=== PATIENT | female | born 1975 | race Caucasian/White ===

== ENCOUNTER → 2017-11-05 12:21 | Outpatient (CLI) | payer BC, SELFPAY ==
--- NOTE | 2017-11-05 12:25 | HPBI_ITS ---
MAMMOGRAPHY - BILATERAL SCREENING REASON FOR EXAM: Female, 42 years old. Routine annual screening examination. PERTINENT HISTORY: Aunt with breast cancer. TECHNIQUE: Digital bilateral breast aster (3D mammographic acquisition) in the CC and MLO projections. 2-D mediolateral oblique (MLO) and craniocaudad (CC) views of both breasts were obtained. CAD: Full Field Digital Mammography with Computer Added Detection was performed. COMPARISON: Comparison is made with prior outside examination dated September 10, 2016. FINDINGS: Breast Composition: The breasts are heterogeneously dense, which may obscure small masses. There are no dominant masses or suspicious calcifications. No other significant abnormalities are identified. There has been no significant change since the prior study. HPBI/SCREENING MAMM (CAD), BILAT IMPRESSION: Stable bilateral screening mammogram. Yearly follow-up mammogram recommended. (A) ASSESSMENT CATEGORY: BIRADS Category 1: Negative. A letter regarding these results will be sent to the patient by the facility within 30 days. Approximately 10% of breast cancers are not detected by mammography. A normal mammogram should not delay biopsy of a clinically suspicious abnormality. [id number] Electronically Signed: Siva Mcfarlane MD at 13:39 EDT Tel [phone], Service support ,
== END ==
PROVIDERS: Family Provider Internal Medicine; PCP Internal Medicine; Visit Provider Internal Medicine
DX: Z12.31 Encounter for screening mammogram for malignant neoplasm of breast (principal)
CPT/HCPCS: 77063; 77067

== ENCOUNTER → 2018-09-07 12:09 | Outpatient (CLI) | payer BC, SELFPAY ==
--- NOTE | 2018-09-07 12:12 | RAD_ITS ---
STUDY: X-RAY CHEST REASON FOR EXAM: Female, 43 years old. Night sweats TECHNIQUE: Frontal and lateral views of the chest were obtained. COMPARISON: None. FINDINGS: Lines and tubes: None. Lungs: Adequately aerated. No focal airspace opacities. Pleura: No demonstrated abnormality. Mediastinum/andressa: Unremarkable. Cardiovascular: Normal size cardiac silhouette. Central vascularity unremarkable. Thoracic aorta unremarkable. Soft tissues: Unremarkable. Bones: Mild degenerative changes in spine. Upper abdomen: No demonstrated abnormality. RAD/Chest PA and Lateral IMPRESSION: No acute cardiopulmonary abnormalities. No radiographic evidence of active tuberculosis infection. No evidence of lymphadenopathy. Electronically Signed: Lynn Zuniga MD at 12:05 EST , Service support ,
--- OUTSIDE RECORDS SUMMARY | 2018-11-09 10:11 | XMS RPT_ITS ---
:1975 Author Organization [facility] Care Team Providers Name Role Phone Ana Lilia Almaraz Attending Unavailable SungAna Lilia Referring Unavailable Sung, Ana Lilia Primary Care Unavailable SungAna Lilia Attending Unavailable SungAna Lilia Referring Unavailable Sung, Ana Lilia Primary Care Unavailable Sung DOAna Lilia Attending Unavailable Fast DO, Valentina A Referring Unavailable Sung DOAna Lilia Consulting Unavailable Fast, Michelle A. Referring Unavailable Fast, Michelle A. Primary Care Unavailable PROBLEMS PROBLEMS DATE TYPE CONDITION / CODE ATTENDING STATUS SOURCE 11/05/2017 Unknown Z12.31 - Ana Lilia Almaraz Active [facility] Encounter for [facility] screening Hospital mammogram for Repository malignant neoplasm of breast / Z12.31(ICD-10) PROCEDURES PROCEDURES No Procedure Records FoundRESULTS RESULTS CHEST PA AND LATERAL Observed: 09/07/2018 Status: F Source: [place] 12:12 PM [facility] HOSPITAL REPOSITORY [facility] Imaging Services [address] [place] [address] Chest PA and Lateral MR#: [id number] Acct: [id number] Name: LAKESHA THOMSON Rep #: [id number] : 1975 F 43 From: Lynn Zuniga MD PCP: Ana Lilia Almaraz DO Status: REG CLI Study: Chest PA and Lateral Date of Exam: 09/07/18 Exam# [id number] Ordering Dr: Ana Lilia Almaraz DO STUDY: X-RAY CHEST REASON FOR EXAM: Female, 43 years old. Night sweats TECHNIQUE: Frontal and lateral views of the chest were obtained. COMPARISON: None. FINDINGS: Lines and tubes: None. Lungs: Adequately aerated. No focal airspace opacities. Pleura: No demonstrated abnormality. Mediastinum/andressa: Unremarkable. Cardiovascular: Normal size cardiac silhouette. Central vascularity unremarkable. Thoracic aorta unremarkable. Soft tissues: Unremarkable. Bones: Mild degenerative changes in spine. Upper abdomen: No demonstrated abnormality. RAD/Chest PA and Lateral IMPRESSION: No acute cardiopulmonary abnormalities. No radiographic evidence of active tuberculosis infection. No evidence of lymphadenopathy. 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 Routine annual screening examination. PERTINENT HISTORY: Aunt with breast cancer. TECHNIQUE: Digital bilateral breast aster (3D mammographic acquisition) in the CC and MLO projections. 2-D mediolateral oblique (MLO) and craniocaudad (CC) views of both breasts were obtained. CAD: Full Field Digital Mammography with Computer Added Detection was performed. COMPARISON: Comparison is made with prior outside examination dated September 10, 2016. FINDINGS: Breast Composition: The breasts are heterogeneously dense, which may obscure small masses. There are no dominant masses or suspicious calcifications. No other significant abnormalities are identified. There has been no significant change since the prior study. HPBI/SCREENING MAMM (CAD), BILAT IMPRESSION: Stable bilateral screening mammogram. Yearly follow-up mammogram recommended. (A) ASSESSMENT CATEGORY: BIRADS Category 1: Negative. A letter regarding these results will be sent to the patient by the facility within 30 days. Approximately 10% of breast cancers are not detected by mammography. A normal mammogram should not delay biopsy of a clinically suspicious abnormality. [id number] Electronically Signed: Siva Mcfarlane MD at 13:39 EDT Tel [phone], Service support , CC: Ana Lilia Almaraz DO Asphalt Heater Tender: Signed ALLERGIES ALLERGIES DATE TYPE / CODE NAME / CODE REACTION SEVERITY SOURCE 05/19/2016 Drug No Known Unknown [facility] Allergy/416 Allergies/H23514 Hospital 880730(SNOM 0388(RXNORM) Repository ED CT) /[id number] NO KNOWN [facility] 6(SNOMED ALLERGIES [facility]) Repository ENCOUNTERS ENCOUNTERS ADMIT/DISCHARGE ACCOUNT NUMBER ADMITTING ENCOUNTER LOCATION SOURCE CLASS 09/07/2018 [id number] Ambulatory [facility] ding:HPRAD Repository 09/07/2018 [id number] Ambulatory Building:[facility] [place] Practices Repository 11/05/2017 [id number] Ambulatory [facility] ding:BI Repository 10/18/2017 [id number] Ambulatory [facility] ENCOUNTER GUARANTOR PAYER SUBSCRIBER SOURCE 09/07/2018 LAKESHA Garza Primary Khoa A [facility] [id number] FIVE Insurance:ANTHEMPolic FetzerDOB: Community POINTS y [place]: [id number] [id number] Repository [address]Ytp: ([phone]) Date:7731-71-74[phone] () [id number] [place] [id number]: 09/07/2018 [facility]SELF [facility] Number: Effective Repository Date:2018-09-07 09/07/2018 Lakesha Garza Primary Khoa FetzerDOB: [place] Practices FetzerDOB: Insurance:[place] [id number] Repository [id number] [facility] Number[facility] [address] [place] [id number], [place] Date:5062-00-47[place] [address]Twf: [phone]: [phone]) Name:[facility] [phone] () [phone] [place] [address] ID ()Tel: [phone]: [phone] 09/07/2018 Secondary [facility]:[place] FetzerDOB: Repository /BSPolicy Number: [id number] [address] Date: - [place], [place] 5770-08-12Snji [phone]: [phone]) Name:[facility] [phone] () [id number], [place] [id number]: 09/07/2018 Tertiary Lakesha GOODWIN Practices Insurance:United FetzerDOB: Repository [facility] [id number] Number: [address] [id number] [place], [place] Date: - [address]Yrp: (132) 1631-07-89Infr [phone] () Name:[address] [address]JS: 11/05/2017 LAKESHA Garciaith Adolfo Russell [id number] FIVE Insurance:ANTHEMPolic FetzerDOB: Community POINTS y Number: [id number] [id number] Repository [address]Pxj: ([phone]) Date:8246-40-09HF [phone] () [id number], [place] [address]ZA: 11/05/2017 Secondary NOT GIVENUNK [facility] Insurance:SELF PAY [facility] Number: Effective Repository Date:2017-10-18 10/18/2017 LAKESHA Garza Primary KHOA FETZERDOB: [facility] FETZERDOB: Insurance:BLUE ACCESS [id number] [id number] OPolicy Number: Repository FIVE POINTS [id number] [place], [place] Date: [address]Voi: ()
--- OUTSIDE RECORDS SUMMARY | 2018-11-09 10:11 | XMS RPT_ITS | Continuity of Care Document ---
:1975 Author Organization [facility] Address [address] [facility] [address] [place] [address] Phone Care Team Providers Name Role Phone Ana Lilia Carlso DO Unavailable Dr. Dyllan Rosen Unavailable Dr. Gladys Villalobos MD Unavailable [facility], [facility] Unavailable Rosario Austin Unavailable Unavailable Maximo GRECO, Kaylah Unavailable Deann Willams LPN Unavailable Unavailable Unavailable Unavailable Problems Name Dates Details Abnormal liver diagnostic imaging (R93.2, 793.3) Comments: recheck one year Status: Active Abnormal TSH (R79.89, 790.6) Status: Active Anxiety (F41.9, 300.00) Status: Active BMI 26.0-26.9,adult (Z68.26, V85.22) Comments: Waist belly button measurement is 29,.5 Status: Active BMI 26.0-26.9,adult (Z68.26, V85.22) Status: Active BMI 27.0-27.9,adult (Z68.27, V85.23) Status: Active BMI 30.0-30.9,adult (Z68.30, V85.30) Status: Active Bronchitis (J40, 490) Status: Active Congestion of nasal sinus (R09.81, 478.19) Status: Active Cough (R05, 786.2) Status: Active Current nonsmoker (Z78.9, V49.89) Status: Active Cyst of ovary, unspecified laterality (N83.209, 620.2) Comments: see loan underwriter Status: Active Degenerative Disc Disease - Lumbar (722.52) Comments: stable Status: Active DEHYDRATION (Renamed from Body water dehydration) (E86.0, 276.51) Status: Active Deliveries (Parity) Comments: Term, 3 Status: Active Diarrhea (R19.7, 787.91) Comments: on and off, colitis per Suzi, was to take endocort x 12 weeks had cdiff 3-15. then had immunosuppressive drug 8-15 for psoriasis. Status: Active Elevated TSH (R79.89, 794.5) Status: Active Encounter for screening for lipid disorder (Z13.220, V77.91) Status: Active Encounter for screening mammogram for breast cancer (Renamed from Encounter for screening mammogram for malignant neoplasm of breast) (Z12.31, V76.12) Status: Active Endometrial polyp (N84.0, 621.0) Comments: see loan underwriter Status: Active Family history of ischemic heart disease (Z82.49, V17.3) Status: Active Fatigue (R53.83, 780.79) Status: Active Fatty liver (K76.0, 571.8) Status: Active History of Helicobacter infection (Z86.19, V12.09) Status: Active Kidney stone (N20.0, 592.0) Comments: small on left Status: Active Pregnancies () Comments: 3 Status: Active 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 to Dr. diana luis out. 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) Status: Active Unspecified Diagnosis Status: Active Unspecified Diagnosis Status: Active Unspecified Diagnosis Status: Active Urinary frequency (Renamed from Frequency) (R35.0, 788.41) Status: Active Uterine fibroid (D25.9, 218.9) Status: Active Vitamin D deficiency (E55.9, 268.9) Status: Active Medications Name Dates Details Chantix Starting Month Parish 0.5 MG X 11 & 1 MG X 42 Oral Tablet 1 Misc qd for 0 days Quantity: 53 {Tablet} Refills: 0 Ordered:15-Nov-2017 Sung ANDERSON BatshevaCaron ANDERSON Ana Lilia Start : 15-Nov-2017 Active Comments:as directed D3-1000, 1000UNIT (Oral Capsule) 1 (one) Capsule Capsule daily for 0 days Quantity: 30 {Capsule} Refills: 0 Ordered:17-Oct-2014 Lynn Henning Start : 27-Jul-2014 Active ProAir HFA 108 (90 Base) MCG/ACT Inhalation Aerosol Solution 2 (two) Aerosol Soln puffs qid prn for 0 days Quantity: 1 {Inhaler} Refills: 1 Ordered:06-Apr-2018 Maximo GRECO Valarie Laws Start : 06-Apr-2018 Active AMOXICILLIN, 500MG (Oral Tablet) 2 (two) Tablet bid for 10 days Quantity: 40 {Tablet} Refills: 0 Ordered:29-Jun-2012 Maximo GRECOValarie Start : 29-Jun-2012 End : 09-Jul-2012 Inactive BIAXIN XL, 500MG (Oral Tablet Extended Release 24 Hour) 2 (two) Tablet ER 24HR Daily for 14 days Quantity: 28 {Tablet_ER_24HR} Refills: 0 Ordered:24-Sep-2008 Valentina Underwood DO Start : 24-Sep-2008 End : 08-Oct-2008 Inactive BIOTIN, 10MG (Oral Tablet) 1 (one) Tablet daily for 30 days Quantity: 30 {Tablet} Refills: 0 Ordered:04-Oct-2015 Maximo GRECOValarie Start : 26-Jun-2015 End : 26-Jul-2015 Inactive Chantix Continuing Month Parish 1 MG Oral Tablet 1 (one) Tablet bid for 0 days Quantity: 60 {Tablet} Refills: 2 Ordered:06-Jan-2018 Linda Wilson LPN Start : 08-Oct-2017 End : 06-Jan-2018 Inactive CIPROFLOXACIN HCL, 500MG (Oral Tablet) 1 Tablet bid for 7 days Quantity: 14 {Tablet} Refills: 0 Ordered:22-Nov-2012 Valarie Marsh CNP Start : 22-Nov-2012 End : 29-Nov-2012 Inactive Comments:ended up giving handwritten rx when emr down CLARITHROMYCIN, 500MG (Oral Tablet) 1 Tablet bid for 10 days Quantity: 20 {Tablet} Refills: 0 Ordered:29-Jun-2012 Valarie Marsh CNP Start : 29-Jun-2012 End : 09-Jul-2012 Inactive CYMBALTA, 30MG (Oral Capsule Delayed Release Particles) [address] Part qd in am for 30 days Quantity: 30 {Capsule_DR_Part} Refills: 3 Ordered:07-Mar-2012 HALEY Fountain Start : 12-May-2011 End : 07-Mar-2012 Inactive DIFLUCAN, 150MG (Oral Tablet) 1 (one) Tablet Tablet qd for 0 days Quantity: 3 {Tablet} Refills: 0 Ordered:28-Feb-2015 HALEY Fountain Start : 19-Oct-2014 End : 28-Feb-2015 Inactive DOXYCYCLINE MONOHYDRATE, 100MG (Oral Tablet) 1 (one) Tablet bid for 10 days Quantity: 20 {QS} Refills: 0 Ordered:16-May-2015 Quynh Sen LPN Start : 16-May-2015 End : 26-May-2015 Inactive DULOXETINE HCL, 30MG (Oral Capsule Delayed Release Particles) 1 (one) Capsule DR Part qd for 0 days Quantity: 30 {Capsule} Refills: 3 Ordered:28-Feb-2015 HALEY Fountain Start : 05-Nov-2014 End : 28-Feb-2015 Inactive Ergocalciferol 28654 UNIT Oral Capsule 1 (one) Capsule twice weekly x 3 months for 0 days Quantity: 24 {Capsule} Refills: 0 Ordered:08-Oct-2017 Linda Wilson LPN Start : 23-Nov-2016 End : 08-Oct-2017 Inactive FISH OIL CONCENTRATE, 300MG (Oral Capsule) 1 (one) Capsule daily for 30 days Quantity: 30 {Capsule} Refills: 0 Ordered:04-Oct-2015 Valarie Marsh CNP Start : 26-Jun-2015 End : 26-Jul-2015 Inactive FLAGYL, 500MG (Oral Tablet) 1 (one) Tablet Tablet tid for 14 days Quantity: 42 {Tablet} Refills: 0 Ordered:26-Jun-2015 Nathaly Parks MD Start : 26-Jun-2015 End : 10-Jul-2015 Inactive FLEXERIL, 10MG (Oral Tablet) 1 Tablet tid prn for 0 days Quantity: 20 {Tablet} Refills: 0 Ordered:24-Jun-2012 Jerald YEAGER Alcira Start : 07-Mar-2012 End : 24-Jun-2012 Inactive GARLIC, 10MG (Oral Capsule) 1 (one) Capsule daily for 30 days Quantity: 30 {Capsule} Refills: 0 Ordered:04-Oct-2015 Valarie Marsh CNP Start : 26-Jun-2015 End : 26-Jul-2015 Inactive LANSOPRAZOLE, 30MG (Oral Capsule Delayed Release) [address] bid for 10 days Quantity: 20 {Capsule_DR} Refills: 0 Ordered:29-Jun-2012 Valarie Marsh CNP Start : 29-Jun-2012 End : 09-Jul-2012 Inactive MAGNESIUM GLUCONATE, 250MG (Oral Tablet) 2 (two) Tablet daily for 30 days Quantity: 60 {Tablet} Refills: 0 Ordered:20-Mar-2016 Kj Valentina Mata Start : 20-Dec-2015 End : 19-Jan-2016 Inactive NICODERM CQ, 14MG/24HR (Transdermal Patch 24 Hour) 1 Patch 24HR daily for 14 days Quantity: 14 Refills: 0 Ordered:07-Mar-2012 HALEY Fountain Start : 21-Aug-2011 End : 07-Mar-2012 Inactive NICODERM CQ, 21MG/24HR (Transdermal Patch 24 Hour) 1 Patch 24HR daily for 42 days Quantity: 42 {Patch_24HR} Refills: 0 Ordered:07-Mar-2012 Wilda Murcia RN Start : 21-Aug-2011 End : 02-Oct-2011 Inactive Comments:use step 1 x 6 weeks NICODERM CQ, 7MG/24HR (Transdermal Patch 24 Hour) 1 Patch 24HR daily for 0 days Quantity: 41 {Patch_24HR} Refills: 0 Ordered:07-Mar-2012 HALEY Fountain Start : 21-Aug-2011 End : 07-Mar-2012 Inactive Comments:use weeks 9-10 No current meds Inactive PREDNISONE, 10MG (Oral Tablet) 1 Tablet for 0 days Refills: 0 Ordered:02-Jun-2010 Lynn Henning Start : 24-Sep-2008 End : 02-Jun-2010 Inactive Comments:3 pills for 3 days 2 pills for 3 days and 1 pill for 3 days Probiotic Oral Capsule 1 (one) Capsule Capsule qd for 0 days Quantity: 30 {Capsule} Refills: 1 Ordered:08-Oct-2017 Linda Wilson LPN Start : 16-May-2015 End : 08-Oct-2017 Inactive PYRIDIUM, 100MG (Oral Tablet) 1 Tablet tid for 2 days Quantity: 6 {Tablet} Refills: 0 Ordered:22-Nov-2012 Maximo GRECO Valarie Laws Start : 22-Nov-2012 End : 24-Nov-2012 Inactive Synthroid 25 MCG Oral Tablet 1 (one) Tablet daily for 0 days Quantity: 30 {Tablet} Refills: 3 Ordered:08-Oct-2017 Ga Carlos DO, DO, Kathleen Start : 08-Oct-2017 End : 08-Oct-2017 Inactive VICODIN, 5-500MG (Oral Tablet) 1 Tablet q 6 hours for 0 days Quantity: 15 {Tablet} Refills: 0 Ordered:24-Jun-2012 Alcira Marques LPN Start : 08-Mar-2012 End : 24-Jun-2012 Inactive Comments:fifteen VITAMIN C, 500MG (Oral Tablet) 1 (one) Tablet daily for 30 days Quantity: 30 {Tablet} Refills: 0 Ordered:04-Oct-2015 Maximo GRECOVaalrie Start : 26-Jun-2015 End : 26-Jul-2015 Inactive Advocare Vitamin Packets daily End : 26-Jun-2015 Discontinued ALIGN, 4MG (Oral Capsule) 1 Capsule daily for 0 days Quantity: 30 {Capsule} Refills: 0 Ordered:20-Jul-2014 Alcira Marques LPN Start : 22-Nov-2012 End : 20-Jul-2014 Discontinued BIAXIN XL PAC, 500MG (Oral Tablet Extended Release 24 Hour) 2 (two) Tablet ER 24HR qd for 0 days Quantity: 14 {Tablet_ER_24HR} Refills: 0 Ordered:20-Jul-2014 Alcira Marques LPN Start : 27-Jun-2013 End : 20-Jul-2014 Discontinued BUPROPION HCL ER (XL), 150MG (Oral Tablet Extended Release 24 Hour) 1 (one) Tablet ER 24HR Tablet ER 24HR qd for 0 days Quantity: 30 {Tablet} Refills: 3 Ordered:26-Jun-2015 Deann Willams LPN Start : 20-Mar-2015 End : 26-Jun-2015 Discontinued DOXYCYCLINE HYCLATE, 100MG (Oral Capsule) 1 (one) Capsule bid for 0 days Quantity: 20 {Capsule} Refills: 0 Ordered:20-Mar-2015 Lynn Henning Start : 28-Feb-2015 End : 20-Mar-2015 Discontinued ENTOCORT EC, 3MG (Oral Capsule Extended Release 24 Hour) 3 caps daily (3 MG) End : 05-Nov-2014 Discontinued Mucinex 600 MG Oral Tablet Extended Release 12 Hour 1 (one) Tablet bid for 0 days Quantity: 30 {Tablet} Refills: 0 Ordered:05-Sep-2018 Gilberto Rizzo Start : 06-Apr-2018 End : 05-Sep-2018 Discontinued Zithromax Z-Parish 250 MG Oral Tablet 1 (one) Tablet tad for 0 days Quantity: 1 {Package} Refills: 0 Ordered:05-Sep-2018 Gilberto Rizzo Start : 06-Apr-2018 End : 05-Sep-2018 Discontinued Allergies and Adverse Reactions Name Dates Details No Known Drug Allergies (Allergy) Status: Active Past Medical History Name Dates Details Abdominal cramping in left lower quadrant (R10.32, 789.04) Status: Resolved as of 08-Oct-2017 Abdominal pain (R10.9, 789.00) Comments: rt ovary Status: Inactive as of 28-Feb-2015 Abdominal pain, acute, generalized (R10.84, 789.07) Status: Resolved as of 05-Nov-[address] of the abdomen (R93.5, 793.6) Status: Resolved as of 08-Oct-2017 Abnormal urine color (R39.89, 791.9) Status: Inactive as of 28-Feb-2015 Abnormal uterine bleeding (N93.9, 626.9) Status: Resolved as of 08-Oct-2017 ACUTE CYSTITIS (N30.00, 595.0) Status: Resolved as of 05-Nov-2014 Bronchitis, acute (J20.9, 466.0) Status: Inactive as of 28-Feb-2015 C. difficile colitis (A04.72, 008.45) Comments: improving Status: Inactive as of 28-Feb-2015 Colitis (K52.9, 558.9) Comments: needs to take Endocort Status: Inactive as of 28-Feb-2015 DIARRHEA (Renamed from D (diarrhea)) (R19.7, 787.91) Status: Resolved as of 05-Nov-2014 Dysuria (R30.0, 788.1) Status: Inactive as of 28-Feb-2015 Encounter for smoking cessation counseling (Z71.6, V65.42) Status: Inactive as of 28-Feb-2015 FATIGUE (R53.83, 780.79) Status: Inactive as of 28-Feb-2015 Flank pain (R10.9, 789.09) Status: Resolved as of 08-Oct-2017 Flatulence (R14.3, 787.3) Status: Inactive as of 28-Feb-2015 Hematuria (R31.9, 599.7) Status: Inactive as of 28-Feb-2015 Hematuria (R31.9, 599.70) Status: Inactive as of 28-Feb-2015 History of colitis (Z87.19, V12.79) Status: Inactive as of 28-Feb-2015 Pharyngitis, acute (J02.9, 462) Comments: probable strep? concerned with possible mono will not give PCN d/t that risk. Status: Resolved as of 02-Jun-2010 Pneumonia due to other specified bacteria (J15.8, 482.89) Status: Resolved as of 02-Jun-2010 screening Status: Inactive as of 16-Dec-2010 Screening for malignant neoplasm of colon (Z12.11, V76.51) Status: Inactive as of 28-Feb-2015 Sebaceous cyst (L72.3, 706.2) Comments: small yet but infected will start with atb if not resolve will come in next week to have drained. first time had. told side effects of meds sunbrun use doxy over PCN with cdiff. will take priobiotic and watch for cdiffleft axilla Status: Resolved as of 08-Oct-2017 SHORTNESS OF BREATH (R06.02, 786.05) Status: Resolved as of 05-Nov-2014 Tobacco abuse (Z72.0, 305.1) Status: Resolved as of 23-Dec-2015 Unspecified Diagnosis Status: Inactive as of 28-Feb-2015 Vaginal Discharge (Renamed from Discharge from the vagina) (N89.8, 623.5) Status: Resolved as of 05-Nov-2014 Procedures Procedure Dates Details Hysterectomy; Vaginal Completed Comments: ovaries remain; Dr Crowe May 25 2016 tubal ligation Completed Comments: removal of the polyp Date Value Details 05-Nov-2017 SCREENING MAMM (CAD), BILAT Result: Comments: See Note; NOTES: [facility] Imaging Services [address] [place] [address] SCREENING MAMM (CAD), BILAT MR#: [id number] Acct: [id number] Name: DIEGO THOMSON Rep # : [id number] : 1975 F 42 From: Siva Mcfarlane MD PCP: Ana Lilia Carlos DO Status: REG CLI Study: SCREENING MAMM (CAD), BILAT Date of Exam: 11/05/17 Exam# [id number] Ordering Dr: Tone Carlos DO MAMMOGRAPHY - BILATERAL SCREENING REASON FOR EXAM: Female, 42 years old. Routine annual screening examination. PERTINENT HISTORY: Aunt with breast cancer. TECHNIQUE: Digital bilateral breast aster (3D mammographic acquisition) in the CC and MLO projections. 2-D mediolateral oblique (MLO) and craniocaudad (CC) views of both breasts were obtained. CAD: Full Field Digital Mammography with Comp uter Added Detection was performed. COMPARISON: Comparison is made with prior outside examination dated September 10, 2016. FINDINGS: Breast Composition: The breasts are heterogeneously dense, which may obscure small masses. There are no dominant masses or suspicious calcifications. No other significant abnormalities are identified. There has been no significant c hange since the prior study. 0027 HPBI/SCREENING MAMM (CAD), BILAT IMPRESSION: Stable bilateral screening mammogram. Yearly follow-up mammogram recomm ended. (A) ASSESSMENT CATEGORY: BIRADS Category 1: Negative. A letter regarding these results will be sent to the patient by the facility within 30 days. Approxima tely 10% of breast cancers are not detected by mammography. A normal mammogram should not delay biopsy of a clinically suspicious abnormality. [id number] Electronically Signed: Siva Mcfarlane MD 2017 at 13:39 EDT Tel [phone], Service support , CC: Ana Lilia Carlos DO After School Program Teacher: Signed 27-May-2016 Operative Report Result: Comments: See Note; NOTES: [facility] Medical Records Department [address] [place] [address] Operative Report MR#: [id number] Acct: [id number] Name: DIEGO THOMSON Rep #: [id number] : 1975 40 From: Haider Crowe MD PCP: Ana Lilia Carlos DO Status: [facility] DATE OF SERVICE: 05/25/2016 DATE OF SERVICE: May 25, 2016. SURGEON: Haider Crowe M.D. WASTE WATER WORKER: JOVANNI Collins. ANESTHESIA: Diana Matos. TYPE OF ANESTHESIA: General endotracheal. PREOPERATIVE DIAGNOSES: Menorrhagia, dysmenorrhea and uterine fibroids. POSTOPERATIVE DIAGNOSES: Menorrhagia, d ysmenorrhea and uterine fibroids. PROCEDURES PERFORMED: A vaginal hysterectomy. FINDINGS: An 8 cm sized uterus with normal-appearing fallopian tubes and ovaries. INDICATIONS: This is a 40-year-old wh ite female, 3, para 3, status post tubal ligation who has had the above issues. We discussed treatment options and given that she has been unresponsive to having a dilation and curettage about 6 months ago, she desired that we proceed with the above options. The patient has been counseled regarding the risks and indications of this procedure including the possibility of bleeding, infection, an d injury to surrounding structures such as bowel and bladder and desired that we proceed. All questions were answered. DESCRIPTION OF PROCEDURE: The patient was taken to the operating room where after induction of general anesthesia, she was placed in dorsal lithotomy position and prepped and draped in usual sterile fashion. The bladder was drained of approximately 50 mL of clear yellow urine with a red rubber catheter. The anterior cervix was grasped with a tenaculum and anterior cervix circumscribed with cautery on a setting of 30 hamilton coagulation. Anterior vaginal mucosa and peritoneum was then easily entered without difficulty and posterior cervix was circumscribed with a knife and posterior peritoneum easily entered. Progressive bites were then taken down on either side of the uterine cervi x ligating each pedicle with 0 Vicryl suture and superior pedicles were ligated x2 with 0 Vicryl suture. Posterior vaginal cuff was then oversewn with running locked 0 Vicryl suture and pedicles were ex amined and noted to be hemostatic. Peritoneum was then closed in a pursestring fashion incorporating superior pedicles into this stitch, and the vaginal cuff was closed front to back with interrupted fi [id number] 0 Vicryl suture. Hemostasis was noted. Camilo catheter was inserted with clear yellow urine noted. The patient tolerated the procedure well and was taken to recovery room in satisfactory co ndition. Sponge, instrument and needle counts were all reported correct. Estimated blood loss for the case was less than 100 mL. Cefotan 2 g IV was given prior to beginning the operative procedure. The re were no apparent complications of the surgery. SPECIMENS TO PATHOLOGY: Uterus. Haider Crowe MD T: [facility] JOB: [id number] 05/27/16 1421 <Electronically signed by Haider Crowe MD> Date Haider Crowe MD Cosigner Signature (If Indicated): Date CC: Haider Crowe MD; Ana Lilia Cyr Dictated: 05/25/16819 Date Transcribed: 05/25/16819 After School Program Teacher: Signed 25-May-2016 12 Lead Electrocardiogram Result: Comments: See Note; NOTES: [facility] Cardiovascular Services [address] [facility] [place] [address] 12 Lead EKG 05/23/16711 MR#: [id number] Acct: [id number] Name: DIEGO THOMSON ep #: [id number] : 1975 40 From: Fortino Palomares MD Attending Dr: Haider Crowe MD Status: REG [facility] Ordering Dr: Haider Crowe MD Date: 05/23/16 Location: [facility] Sex: F C Admitted: Test Reason : PRE OP Blood Pressure : / mmHG Vent. Rate : 055 BPM Atrial Rate : 055 BPM P-R Int : 148 ms QRS Dur : 080 ms QT Int : 452 ms P-R-T Axes : 051 077 043 degrees QTc Int : 432 ms Sinus bradycardia Otherwise normal ECG Confirmed by FORTINO PALOMARES MD ([id number]), web editor PETR ASENCIO ([id number]) on 05/25/2016 1:15:41 PM Referred By: Terrence Garcia Confirmed By:FORTINO PALOMARES MD 05/25/16 1315 Date Fortino Palomares MD CC: Ana Lilia Carlos DO Date Dictated: 05/23/16711 Date Transcribed: 05/23/16711 After School Program Teacher: Signed 25-May-2016 Discharge Instruction Result: Comments: See Note; NOTES: [facility] Medical Records Department [address] [place] [address] Instructions for Home/Discharge Instructions 05/25/16 0731 MR#: [id number] Acct: [id number] Name: DIEGO THOMSON Rep #: [id number] : 1975 40 From: Haider Crowe MD PCP: Ana Lilia Carlos DO Status: REG SDC Discharge Diet: No Restrictions Discharge Activity: Return to Normal Activity, May Not Drive - while taking narcotic pain medications., May Shower May resume sexual activity in: 6-8 weeks Call your doctor if your incision/area has: Continuous Slow Oozing, Sudden Increas ed Bleeding, Increased Pain/ Swelling, Increased Redness, Foul Smelling Discharge Call your doctor if you observe: Fever of 101 or Higher, Inability to urinate, Inability to have a bowel movement, Using more than one pad per hour Allergies/Adverse Reactions: Allergies No Known Allergies Allergy (Verified 05/19/16 08:02) Medications to take at Discharge L.acidoph AND Paracasei,B.lactis [Probiotic] 1 each PO DAILY 07/30/15 Docusate Sodium [Colace] 100 mg PO BID PRN PRN #60 capsule 05/25/16 Oxycodone [Oxyir] 5 mg PO Q6H PRN PRN #20 tablet 05/25/16 The following prescriptions were given: Docusate Sodium [Colace] 100 mg PO BID PRN PRN #60 capsule PRN Reason: Constipation Oxycodone [Oxyir] 5 mg PO Q6H PRN PRN #20 tablet PRN Reason: Mod-Severe Pain (-05/25) 05/25/16 0731 <Electronica lly signed by Haider Crowe MD> Date Haider Crowe MD CC: Ana Lilia Carlos DO 12-Feb-2016 Cerv Spine 4 or 5 Views Result: Comments: See Note; NOTES: [facility] Imaging Services [address] [place] [id number] Verdana 4d Cerv Spine 4 or 5 Views MR#: [id number] Acct: [id number] Name: DIEGO REYEZ Rep #: [id number] : 1975 F 40 From: Ravindra Parekh MD PCP: Valentina Underwood DO Status: REG CLI Study: Cerv Spine 4 or 5 Views Date of Exam: 02/12/16 Exam# [id number] Ordering Dr: Pool Harrington DO STUDY: X-RAY - CERVICAL SPINE REASON FOR EXAM: Female, 40 years old. Neck pain and stiffness TECHNIQUE: Six view(s) of the cervical spine were obtained. COMPARISON: None FINDINGS: Normal anterior atlantoaxial articulation. Normal odontoid process. There is reversal of the normal cervical lordosis. Normal vertebral bodies and endplates. Normal disc space heights. Mild right and left C3-4 neural foraminal stenosis. The soft tissue structures are unremarkable. IMPRESSION: Cervical lordotic reve rsal. Mild bilateral C3-4 neural foraminal stenoses. If the patient's clinical findings warrant, a follow-up MRI CERVICAL spine would be recommended. Electronically Signed: Ravindra Parekh MD at 23:59 EDT , Service support [phone], RAD/Cerv Spine 4 or 5 Views IMPRESSION: Cervical lordotic reversal. Mild bilateral C3 -4 neural foraminal stenoses. If the patient's clinical findings warrant, a follow-up MRI CERVICAL spine would be recommended. Electronically Signed: Ravindra Parekh MD at 23:59 EDT , Service support [phone], CC: Valentina Underwood DO; Pool Dempsey After School Program Teacher: Signed 17-Dec-2015 Abdomen WITH IV Contrast Result: Comments: See Note; NOTES: [facility] Imaging Services [address] [place] [id number] Verdana 4d Abdomen WITH IV Contrast MR#: [id number] Acct: [id number] Name: DIEGO MANUEL Rep #: [id number] : 1975 F 40 From: Ravindra Parekh MD PCP: Valentina Underwood DO Status: REG CLI Study: Abdomen WITH IV Contrast Date of Exam: 12/17/15 Exam# [id number] Ordering Dr: Valentina Byrd DO STUDY: CT ABDOMEN WITH CONTRAST REASON FOR EXAM: Female, 40 years old. Flank pain abnormal liver ultrasound, history of kidney stones, cholecystectomy, tubal ligation and appendect candy. RADIATION DOSAGE (If Supplied By Facility): CTDIvol = ( 10.81 ) mGy, DLP = ( 701.18 ) mGycm TECHNIQUE: Transaxial images were obtained post I.V. administration of 100 ml of Isovue 300 contras t, and with oral contrast. Sagittal and coronal images were reconstructed. Individualized dose optimization techniques were used for this CT. COMPARISON: Nonenhanced CT scan of the abdomen and pelv is dated 12/17/15, 0742 hrs. FINDINGS: The visualized lung bases are unremarkable. The visualized portions of the heart are within normal limits. There are a fe w scattered low attenuation lesions, largest measuring 7 mm most likely representing cysts, but ultrasound confirmation could be performed. Status post cholecystectomy by history and examination. Norm al spleen. The pancreas appears normal in the pancreatic head is not enlarged, measuring 2.5 cm. Normal bilateral adrenal glands. Small nonobstructing calculus in the lower pole the right kidney a nd the previously identified small calculus the left kidney is not as well imaged. Normal left kidney. The stomach is partially filled with oral contrast with mural thickening, most likely due to g astric nondistention. Normal small intestine. Normal colon. Status post appendectomy. Normal abdominal aorta. Normal inferior vena cava. Normal retroperitoneum. Normal abdominal wall. Normal osseo us structures. IMPRESSION: Normal-appearing pancreatic head which is better demonstrated after intravenous contrast was employed. There are a few scattered pro bable small cysts within the liver and this could be confirmed with ultrasound, as clinically indicated. Nonobstructing right nephrolithiasis. Status post cholecystectomy and appendectomy. Electr onically Signed: Ravindra Parekh MD at 19:58 EDT , Service support [phone], CC: Valentina Underwood DO After School Program Teacher: Signed 17-Dec-2015 Abdomen/Pelvis without Cont Result: Comments: See Note; NOTES: [facility] Imaging Services [address] [place] [address] Verdana 4d Abdomen/Pelvis without Cont MR#: [id number] Acct: [id number] Name: DIEGO THOMSON Rep #: [id number] : 1975 F 40 From: Ravindra Parekh MD PCP: Valentina Underwood DO Status: REG CLI Study: Abdomen/Pelvis without Cont Date of Exam: 12/17/15 Exam# [id number] Ordering Dr: Valentina Underwood DO ADDENDUM by Ravindra Parekh MD on 12/17/15 at 1957 ADDENDUM Correction: Status post appendectomy. Electronically Signed: Ravindra Parekh MD at 19:58 EDT , Service support [phone], 12/17/151957 Date __ cc: Valentina Underwood DO * Signed STUDY: CT ABDOMEN AND PELVIS WITHOUT CONTRAST REASON FOR EXAM: Female, 40 years old. Flank pain, abnormal liver ultrasound. History kidney stones right flank jeffry n. Tubal ligation, cholecystectomy and appendectomy. RADIATION DOSAGE (If Supplied By Facility): CTDIvol = ( 10.81 ) mGy, DLP = ( 701.18 ) mGycm TECHNIQUE: Transaxial images were obtained from the dome of the diaphragm to the symphysis pubis with oral contrast, and without intravenous contrast. Sagittal and coronal images were reconstructed. Individualized dose optimization techniques were u sed for this CT. COMPARISON: CT abdomen and pelvis 10/17/14. FINDINGS: The visualized lung bases are unremarkable. The visualized portions of the heart are withi n normal limits. Redemonstration of a couple of 2-3 mm low density lesions in the right and left hepatic lobes, too small for CT assessment, but probably represent small cysts and appear unchanged. Ultrasound correlation could be performed as clinically indicated. There is non- visualization of the gallbladder, which may be secondary to either contraction or a prior cholecystectomy. Normal splee n. The pancreatic head is enlarged, measuring 3.5 cm in its anterior-posterior dimension. No specific intrinsic mass peripancreatic fat induration. Normal bilateral adrenal glands. There is a 1-2 mm nonobstructing calculus in the lower pole right kidney without obstructive uropathy. There is a 2 mm left lower pole nonobstructing renal calculus. Normal visualized stomach. Normal small intest ine. Normal colon. The appendix is visualized and appears normal. There are surgical clips seen along the right iliopsoas muscle. Normal abdominal aorta. Normal inferior vena cava. Normal retroperi toneum. Normal urinary bladder. Bulky appearing uterus and status post tubal ligations. Normal abdominal wall. Degenerative disk disease at L5-S1 IMPRESSION: Apparent pancreatic enlargement without evidence of intrinsic lesion or peripancreatic fat induration. As result, a FOLLOWUP CT SCAN THE PANCREAS, with INTRAVENOUS contrast, would be recommended. B ilateral nonobstructing nephrolithiasis. Right lower quadrant surgical clips. Appearance small hepatic cysts which have remained stable. Status post cholecystectomy. Electronically Signed: Suresh Parekh MD at 19:47 EDT , Service support [phone], CC: Valentina Underwood DO After School Program Teacher: Signed 17-Dec-2015 Abdomen/Pelvis without Cont Result: Comments: See Note; NOTES: [facility] Imaging Services [address] [place] [address] Verdana 4d Abdomen/Pelvis without Cont MR#: [id number] Acct: [id number] Name: DIEGO THOMSON Rep #: [id number] : 1975 F 40 From: Ravindra Parekh MD PCP: Valentina Underwood DO Status: REG CLI Study: Abdomen/Pelvis without Cont Date of Exam: 12/17/15 Exam# [id number] Ordering Dr: Valentina Underwood DO STUDY: CT ABDOMEN AND PELVIS WITHOUT CONTRAST REASON FOR EXAM: Female, 40 years old. Flank pain, abnormal liver ultrasound. History kidney stones right flank pain. Tubal ligat ion, cholecystectomy and appendectomy. RADIATION DOSAGE (If Supplied By Facility): CTDIvol = ( 10.81 ) mGy, DLP = ( 701.18 ) mGycm TECHNIQUE: Transaxial images were obtained from the dome of the d iaphragm to the symphysis pubis with oral contrast, and without intravenous contrast. Sagittal and coronal images were reconstructed. Individualized dose optimization techniques were used for this C T. COMPARISON: CT abdomen and pelvis 10/17/14. FINDINGS: The visualized lung bases are unremarkable. The visualized portions of the heart are within normal limit s. Redemonstration of a couple of 2-3 mm low density lesions in the right and left hepatic lobes, too small for CT assessment, but probably represent small cysts and appear unchanged. Ultrasound cor relation could be performed as clinically indicated. There is non-visualization of the gallbladder, which may be secondary to either contraction or a prior cholecystectomy. Normal spleen. The pancr eatic head is enlarged, measuring 3.5 cm in its anterior-posterior dimension. No specific intrinsic mass peripancreatic fat induration. Normal bilateral adrenal glands. There is a 1-2 mm nonobstruc ting calculus in the lower pole right kidney without obstructive uropathy. There is a 2 mm left lower pole nonobstructing renal calculus. Normal visualized stomach. Normal small intestine. Normal co richie. The appendix is visualized and appears normal. There are surgical clips seen along the right iliopsoas muscle. Normal abdominal aorta. Normal inferior vena cava. Normal retroperitoneum. Norm al urinary bladder. Bulky appearing uterus and status post tubal ligations. Normal abdominal wall. Degenerative disk disease at L5-S1 IMPRESSION: Apparent panc reatic enlargement without evidence of intrinsic lesion or peripancreatic fat induration. As result, a FOLLOWUP CT SCAN THE PANCREAS, with INTRAVENOUS contrast, would be recommended. Bilateral nonob structing nephrolithiasis. Right lower quadrant surgical clips. Appearance small hepatic cysts which have remained stable. Status post cholecystectomy. Electronically Signed: Shalom Mccall at 19:47 EDT , Service support [phone], CC: Valentina Underwood DO After School Program Teacher: Signed 05-Dec-2015 Abdomen Complete Result: Comments: See Note; NOTES: [facility] Imaging Services [address] [place] [address] Marydana 4d Abdomen Complete MR#: [id number] Acct: [id number] Name: SHARDA THOMSON Rep #: [id number] : 1975 F 40 From: Siva Mcfarlane MD PCP: Valentina Underwood DO Status: REG CLI Study: Abdomen Complete Date of Exam: 12/05/15 Exam# [id number] Ordering Dr: Valentina Underwood DO STUDY: X-RAY - ABDOMEN/PELVIS REASON FOR EXAM: Female, 40 years old. Flank pain. TECHNIQUE: Two AP supine views of the abdomen and pelvis. COMPARISON: None. __ FINDINGS: There is a moderate amount of colonic fecal material. The visualized liver, spleen and kidneys are grossly normal in size and morphology. There is evidence of prior tubal ligation. Surgical clips are seen in the right mid pelvis. Normal visualized osseous structures. IMPRESSION: Moderate amount of fecal material is seen in the colon. Cathy ctronically Signed: Siva Mcfarlane MD at 12:38 EDT Tel [phone], Service support [phone], STUDY: ABDOMINAL ULTRASOUND REASON FOR EXAM: Female, 40 years old . Flank pain. TECHNIQUE: Transabdominal ultrasound was performed with real-time and static paez scale imaging. TECHNICAL QUALITY: Adequate. COMPARISON: Comparison is made with prior study dated A ugust 2014. FINDINGS: Liver: The liver measures 13.9 cm. There is increased echogenicity consistent with fatty infiltration. The bile ducts are within candy l limits. There is hepatic color flow. The direction of portal flow is hepatopetal. There is no demonstrated mass lesion. Gallbladder: The patient is status post cholecystectomy. Common Bile Duct (C.B.D.): The common bile duct measures 2.6 mm. Pancreas: Normal size of the head, body and tail of the pancreas. There is normal echogenicity of the pancreas. There is no demonstrated pancreatic ma ss or cyst. Spleen: Normal size of the spleen. The spleen measures 9.1 cm x 3.4 cm x 5.0 cm. Right Kidney: Normal size of the right kidney. The right kidney measures 10.3 cm x 5.9 cm x 5.0 cm. Nor mal renal cortex. The right cortex measures 1.5 cm. There is no demonstrated renal mass or cyst. There is no right hydronephrosis. Left Kidney: Normal size of the left kidney. The left kidney measur es 10.7 cm x 4.9 cm x 6.2 cm. Normal renal cortex. The left cortex measures 1.5 cm. There is no demonstrated renal mass or cyst. There is no left hydronephrosis. Aorta: Unremarkable. I.V.C.: The IVC is patent. There is no ascites. IMPRESSION: Fatty infiltration of the liver. The patient is status post cholecystectomy. Electronically Signed: Siva Mcfarlane MD at 12:39 EDT Tel [phone], Service support [phone], CC: Valentina Underwood DO After School Program Teacher: Signed 05-Dec-2015 Abdomen Single View Result: Comments: See Note; NOTES: [facility] Imaging Services [address] [place] [address] Marydadiana 4d Abdomen Single View MR#: [id number] Acct: [id number] Name: DIEGO THOMSON Rep #: [id number] : 1975 F 40 From: Siva Mcfarlane MD PCP: Valentina Underwood DO Status: REG CLI Study: Abdomen Single View Date of Exam: 12/05/15 Exam# [id number] Ordering Dr: Meng DO STUDY: X-RAY - ABDOMEN/PELVIS REASON FOR EXAM: Female, 40 years old. Flank pain. TECHNIQUE: Two AP supine views of the abdomen and pelvis. COMPARISON: None. FINDINGS: There is a moderate amount of colonic fecal material. The visualized liver, spleen and kidneys are grossly normal in size and morphology. There is evidence of prior tubal lig ation. Surgical clips are seen in the right mid pelvis. Normal visualized osseous structures. IMPRESSION: Moderate amount of fecal material is seen in the colon. Electronically Signed: Siva Mcfarlane MD at 12:38 EDT Tel [phone], Service support [phone], STUDY: ABDOMINAL ULTRASOUND REASON FOR EXAM: Female, 40 yea rs old. Flank pain. TECHNIQUE: Transabdominal ultrasound was performed with real-time and static paez scale imaging. TECHNICAL QUALITY: Adequate. COMPARISON: Comparison is made with prior study d ated April 04, 2015. FINDINGS: Liver: The liver measures 13.9 cm. There is increased echogenicity consistent with fatty infiltration. The bile ducts are within normal limits. There is hepatic color flow. The direction of portal flow is hepatopetal. There is no demonstrated mass lesion. Gallbladder: The patient is status post cholecystectomy. Common Bile Duct (C.B.D.): The common bile duct measures 2.6 mm. Pancreas: Normal size of the head, body and tail of the pancreas. There is normal echogenicity of the pancreas. There is no demonstrated pancrea tic mass or cyst. Spleen: Normal size of the spleen. The spleen measures 9.1 cm x 3.4 cm x 5.0 cm. Right Kidney: Normal size of the right kidney. The right kidney measures 10.3 cm x 5.9 cm x 5.0 c m. Normal renal cortex. The right cortex measures 1.5 cm. There is no demonstrated renal mass or cyst. There is no right hydronephrosis. Left Kidney: Normal size of the left kidney. The left kidney measures 10.7 cm x 4.9 cm x 6.2 cm. Normal renal cortex. The left cortex measures 1.5 cm. There is no demonstrated renal mass or cyst. There is no left hydronephrosis. Aorta: Unremarkable. I.V.C. : The IVC is patent. There is no ascites. IMPRESSION: Fatty infiltration of the liver. The patient is status post cholecystectomy. Electronically Signed: Matthew Mcfarlane MD at 12:39 EDT Tel [phone], Service support [phone], RAD/Abdomen Single View IMPRESSION: Fatty infiltration of the liver . The patient is status post cholecystectomy. Electronically Signed: Siva Mcfarlane MD at 12:39 EDT Tel [phone], Service support [phone], CC: Valentina Underwood DO After School Program Teacher: Signed 05-Dec-2015 Abdomen Single View Result: Comments: See Note; NOTES: [facility] Imaging Services [address] [place] [address] Verdana 4d Abdomen Single View MR#: [id number] Acct: [id number] Name: DIEGO THOMSON Rep #: [id number] : 1975 F 40 From: Siva Mcfarlane MD PCP: Valentina Underwood DO Status: REG CLI Study: Abdomen Single View Date of Exam: 12/05/15 Exam# [id number] Ordering Dr: Meng DO STUDY: X-RAY - ABDOMEN/PELVIS REASON FOR EXAM: Female, 40 years old. Flank pain. TECHNIQUE: Two AP supine views of the abdomen and pelvis. COMPARISON: None. FINDINGS: There is a moderate amount of colonic fecal material. The visualized liver, spleen and kidneys are grossly normal in size and morphology. There is evidence of prior tubal lig ation. Surgical clips are seen in the right mid pelvis. Normal visualized osseous structures. IMPRESSION: Moderate amount of fecal material is seen in the colon. Electronically Signed: Siva Mcfarlane MD at 12:38 EDT Tel [phone], Service support [phone], STUDY: ABDOMINAL ULTRASOUND REASON FOR EXAM: Female, 40 yea rs old. Flank pain. TECHNIQUE: Transabdominal ultrasound was performed with real-time and static paez scale imaging. TECHNICAL QUALITY: Adequate. COMPARISON: Comparison is made with prior study d ated April 04, 2015. FINDINGS: Liver: The liver measures 13.9 cm. There is increased echogenicity consistent with fatty infiltration. The bile ducts are within normal limits. There is hepatic color flow. The direction of portal flow is hepatopetal. There is no demonstrated mass lesion. Gallbladder: The patient is status post cholecystectomy. Common Bile Duct (C.B.D.): The common bile duct measures 2.6 mm. Pancreas: Normal size of the head, body and tail of the pancreas. There is normal echogenicity of the pancreas. There is no demonstrated pancrea tic mass or cyst. Spleen: Normal size of the spleen. The spleen measures 9.1 cm x 3.4 cm x 5.0 cm. Right Kidney: Normal size of the right kidney. The right kidney measures 10.3 cm x 5.9 cm x 5.0 c m. Normal renal cortex. The right cortex measures 1.5 cm. There is no demonstrated renal mass or cyst. There is no right hydronephrosis. Left Kidney: Normal size of the left kidney. The left kidney measures 10.7 cm x 4.9 cm x 6.2 cm. Normal renal cortex. The left cortex measures 1.5 cm. There is no demonstrated renal mass or cyst. There is no left hydronephrosis. Aorta: Unremarkable. I.V.C. : The IVC is patent. There is no ascites. IMPRESSION: Fatty infiltration of the liver. The patient is status post cholecystectomy. Electronically Signed: Matthew Mcfarlane MD at 12:39 EDT Tel [phone], Service support [phone], RAD/Abdomen Single View IMPRESSION: Fatty infiltration of the liver . The patient is status post cholecystectomy. Electronically Signed: Siva Mcfarlane MD at 12:39 EDT Tel [phone], Service support [phone], CC: Valentina Underwood DO After School Program Teacher: Signed 07-Aug-2015 Operative Report Result: Comments: See Note; NOTES: [facility] Medical Records Department [address] [place] [address] Operative Report MR#: [id number] Acct: [id number] Name: MILVIA THOMSON Rep #: [id number] : 1975 39 From: Haider Crowe MD PCP: Valentina Underwood DO Status: [facility] DATE OF SERVICE: 08/05/2015 DATE OF SERVICE: August 05, 2015 SURGEON: Phoenix Engel NESTHESIA: Robert Ramey TYPE OF ANESTHESIA: General endotracheal. PREOPERATIVE DIAGNOSES: Endocervical polyp, ovarian cyst, uterine fibroids, irregular bleeding and desires permanent sterilizatio n. POSTOPERATIVE DIAGNOSES: Endocervical polyp, ovarian cyst, uterine fibroids, irregular bleeding and desires permanent sterilization. PROCEDURES: Laparoscopic bilateral tubal occlusion with Sebastian shie clips, bilateral partial salpingectomy, diagnostic hysteroscopy, fractional dilation and curettage, and Mirena IUD removal. FINDINGS: Mirena IUD in endometrial cavity with string visualized at cervix, normal endometrial cavity with a small endometrial polyp present and normal pelvis. INDICATIONS: This is a 39-year-old white female, 3, para 3, who presents for the above procedure due to having problems with irregular periods. She was noted to have an endocervical polyp on [employer] ultrasound about 3-4 months ago. She also had normal-appearing ovaries on ultrasound with a small cys t present on the right. Given this, it was decided to proceed with the above procedure. The patient was counseled regarding the risks and indications of this procedure including the possibility of ble eding, infection, and injury to surrounding structures such as bowel and bladder. She also understands the permanent nature of a tubal, the failure rate of 1%- 2% and the availability of other nonperma nent control options. All questions were answered. DESCRIPTION OF PROCEDURE: The patient was taken to the operating room where after induction of general anesthesia, she was placed in dorsal lithotomy position, prepped and draped in usual sterile fashion. The anterior lip of the cervix was grasped with a tenaculum and IUD was removed. James cannula was placed and attention was turned towar d the laparoscopic portion of the procedure. Approximately 10 mL of 0.5% ropivacaine was injected subumbilically and suprapubically. A 5-mm bladeless trocar was introduced subumbilically and after C O2 insufflation was completed, an 8-mm bladeless trocar was introduced suprapubically. It should be noted that approximately 75 mL of clear yellow urine was drained from the bladder with a red rubber catheter at the beginning of the procedure. It should also be noted that the patient had previous abdominal surgery for cosmetic reasons and the fascia was rather difficult to enter. However, under t he fascia, there was no evidence of adhesions in the peritoneal cavity. The above findings were noted and ENSEAL device was used to cauterize across the mesosalpinx on each fallopian tube, leaving elizabeth roximately 0.5 cm of each fallopian tube present. On which, Filshie clips were placed bilaterally. Attention was then turned toward the D and C portion of the procedure after desufflating the abdomen of CO2 gas. A 3 mm hysteroscope was placed in the uterus and the above findings were noted. After removing the hysteroscope, endocervical and then endometrial curettings were obtained. Attention wa s again turned toward the laparoscopic portion of the procedure. Laparoscopic ports were removed and port sites were closed with running 4-0 Monocryl suture. Steri-Strips placed across the incision. The patient tolerated the procedure well and was taken to recovery room in satisfactory condition. Sponge, instrument, needle counts were all reported correct. Estimated blood loss for the case was mi nimal. There were no apparent complications of the surgery. SPECIMENS TO PATHOLOGY: Bilateral fallopian tubes, endocervical, endometrial curettings. Haider Crowe MD T: NTS JOB: [id number] <Electronically signed by Haider Crowe MD> Date Haider Crowe MD Cosigner Signature (If Indicated): Date ____ CC: Valentina Underwood DO; Haider Crowe MD Date Dictated: 08/05/15833 Date Transcribed: 08/05/15833 After School Program Teacher: Signed 05-Aug-2015 Discharge Instruction Result: Comments: See Note; NOTES: [facility] Medical Records Department [address] [place] [address] Instructions for Home/Discharge Instructions 08/05/15 0725 MR#: [id number] Acct: [id number] Name: DIEGO THOMSON Rep #: [id number] : 1975 39 From: Haider Crowe MD PCP: Valentina Underwood DO Status: REG [facility] Discharge Diet: No Restrictions - Increase fluid intake f or the next 48 hours. Discharge Activity: Return to Normal Activity, May Drive - when you are no longer taking pain/ narcotic medicines., May Shower, May Take a Tub Bath Additional Activity Instructio ns:: Ambulate often the next week after surgery. Nothing in the vagina for 5 days. Call your doctor if your incision/area has: Continuous Slow Oozing, Sudden Increased Bleeding, Increased Pain/ Swell ing, Increased Redness, Foul Smelling Discharge Call your doctor if you observe: Fever of 101 or Higher, Inability to urinate, Inability to have a bowel movement Allergies/Adverse Reactions: Allergi es No Known Allergies Allergy (Verified 07/30/15 09:25) Medications to take at Discharge Ascorbic Acid [Vitamin C] 500 mg PO DAILY 07/30/15 Biotin [Doc Biotin] 10,000 mcg PO DAILY 07/30/15 Ch olecalciferol (VIT D3) [Vitamin D] 1,000 unit PO DAILY 07/30/15 Garlic 1 mg PO DAILY 07/30/15 L.acidoph AND Paracasei,B.lactis [Probiotic] 1 each PO DAILY 07/30/15 Vitamin B Complex 1 each PO DAILY 1 09/30/14 Hydrocodone Bitart/Apap 5-325 [Lynndyl 5MG-325MG] 1 - 2 tablet PO Q4H PRN PRN #20 tablet 08/05/15 The following prescriptions were given: Hydrocodone Bitart/Apap 5-325 [Lynndyl 5MG-325MG] 1 - 2 tablet PO Q4H PRN PRN #20 tablet PRN Reason: Moderate To Severe Pain Please Follow Up With: Haider Crowe - [phone] When: 2-3 weeks 08/05/15 0726 <Electronically signed by Haider echavarria MD> Date Haider Crowe MD CC: Valentina Underwood DO 12-Apr-2015 Transvaginal Non- Result: Comments: See Note; NOTES: [facility] Imaging Services [address] [place] [address] Ultrasound Report MR#: [id number] Acct: [id number] Name: DIEGO THOMSON Rep #: [id number] : 1975 F 39 From: Siva Mcfarlane MD PCP: Valentina Underwood DO Status: REG CLI Study: Transvaginal Non- Date of Exam: 04/12/15 Exam# [id number] Ordering Dr: Valentina Underwood DO ST UDY: ULTRASOUND OF THE FEMALE PELVIS - COMPLETE REASON FOR EXAM: Female, 39 years old. LMP: Right pelvic pain. TECHNIQUE: Transabdominal and Transvaginal TECHNICAL QUALITY: Adequate. COMPARISON: None. FINDINGS: The uterus is anteverted and is in a midline position. The uterus measures 9.5 cm x 5.4 cm x 4.2 cm. Normal uterine cervix. The endometrium karla ures 5.0 mm in thickness, and is hyperechoic. There is no demonstrated endometrial mass. There is a 1 cm x 1.1 cm x 0.9 cm fibroid. There is also evidence of a 6 mm x 6 mm x 3 mm polyp in the endocer vical canal. I.U.D. - The patient does have an I.U.D. The right ovary is visualized. The right ovary measures 3.7 cm x 4.8 cm 1.9 cm. There is a 2.1 cm x 2.0 cm x 1.5 cm cyst in the right ovary. Th ere is no visualized right adnexal mass or complex lesion. There is normal arterial and normal venous vascularity. The left ovary is visualized. The left ovary measures 3.3 cm x 2.4 cm 1.3 cm. There is no left ovarian cyst or ovarian mass. There is no visualized left adnexal mass or complex lesion. There is normal arterial and normal venous vascularity. There is no fluid in the cul-de-sac. _ IMPRESSION: Right ovarian cyst. Small fibroid in the body of the uterus as well as a possible small polyp in the endocervical canal. Electronically Signed: David Mcfarlane MD at 13:48 EDT Tel [phone], Service support [phone], CC: Valentina Underwood DO After School Program Teacher: Signed 12-Apr-2015 Liver Result: Comments: See Note; NOTES: [facility] Imaging Services [address] [place] [address] Ultrasound Report MR#: [id number] Acct: [id number] Name: DIEGO THOMSON Rep #: [id number] : 1975 F 39 From: Siva Mcfarlane MD PCP: Valentina Underwood DO Status: REG CLI Study: Liver Date of Exam: 04/12/15 Exam# [id number] Ordering Dr: Valentina Underwood DO STUDY: ABDOMINAL ULTRA SOUND - RIGHT UPPER QUADRANT REASON FOR VISIT: Female, 39 years old. History of colitis. TECHNIQUE: Ultrasound evaluation of the right upper quadrant was performed with real-time and static paez-sc neftaly imaging. TECHNICAL QUALITY: Adequate. COMPARISON: Comparison is made with prior examination dated July 23, 2014. FINDINGS: Liver: The liver measures 13.4 cm. There is normal echogenicity of the liver. The bile ducts are within normal limits. There is hepatic color flow. The direction of portal flow is hepatopetal. There is no demonstrated mass le alonso. The tiny hypodensities seen on the CT scan of the abdomen are not visualized on this examination. Gallbladder: The patient is status post cholecystectomy. Common Bile Duct (C.B.D.): The commo n bile duct measures 5.0 mm. Pancreas: Normal size of the head, body and tail of the pancreas. There is normal echogenicity of the pancreas. There is no demonstrated pancreatic mass or cyst. Right Kidney: Normal size of the right kidney. The right kidney measures 10.9 cm x 6.0 cm x 5.0 cm. Normal renal cortex. The right cortex measures 1.3 cm. There is no demonstrated renal mass or cyst. There is an extra-renal pelvis of the right kidney. There is no distention of the renal calyces. IMPRESSION: Status post cholecystectomy. No acute abnormality is see n. Electronically Signed: Siva Mcfarlane MD at 13:13 EDT Tel [phone], Service support [phone], CC: Valentina Underwood DO [employer] Program Teacher: Signed 12-Apr-2015 Pelvic (Non ) Result: Comments: See Note; NOTES: [facility] Imaging Services [address] [place] [address] [place] [address] Ultrasound Report MR#: [id number] Acct: [id number] Name: DIEGO THOMSON Rep #: [id number] : 1975 F 39 From: Siva Mcfarlane MD PCP: Valentina Underwood DO Status: REG CLI Study: Pelvic (Non ) Date of Exam: 04/12/15 Exam# [id number] Ordering Dr: Valentina Underwood DO STUDY: ULTRASOUND OF THE FEMALE PELVIS - COMPLETE REASON FOR EXAM: Female, 39 years old. LMP: Right pelvic pain. TECHNIQUE: Transabdominal and Transvaginal TECHNICAL QUALITY: Adequate. COMPARISON: Non e. FINDINGS: The uterus is anteverted and is in a midline position. The uterus measures 9.5 cm x 5.4 cm x 4.2 cm. Normal uterine cervix. The endometrium measures 5.0 mm in thickness, and is hyperechoic. There is no demonstrated endometrial mass. There is a 1 cm x 1.1 cm x 0.9 cm fibroid. There is also evidence of a 6 mm x 6 mm x 3 mm polyp in the endocervica l canal. I.U.D. - The patient does have an I.U.D. The right ovary is visualized. The right ovary measures 3.7 cm x 4.8 cm 1.9 cm. There is a 2.1 cm x 2.0 cm x 1.5 cm cyst in the right ovary. There is no visualized right adnexal mass or complex lesion. There is normal arterial and normal venous vascularity. The left ovary is visualized. The left ovary measures 3.3 cm x 2.4 cm 1.3 cm. There is no left ovarian cyst or ovarian mass. There is no visualized left adnexal mass or complex lesion. There is normal arterial and normal venous vascularity. There is no fluid in the cul-de-sac. IMPRESSION: Right ovarian cyst. Small fibroid in the body of the uterus as well as a possible small polyp in the endocervical canal. Electronically Signed: Abrahan Mcfarlane MD at 13:48 EDT Tel [phone], Service support [phone], CC: Valentina Underwood DO After School Program Teacher: Signed 17-Oct-2014 Abdomen/Pelvis WITH Contrast Result: Comments: See Note; NOTES: [facility] Imaging Services [address] [place] [address] CAT Scan Report MR#: [id number] Acct: [id number] Name: DIEGO CHAPIN Rep #: [id number] : 1975 F 39 From: Carlton Shaw MD PCP: Valentina Underwood DO Status: REG CLI Study: Abdomen/Pelvis WITH Contrast Date of Exam: 10/17/14 Exam# [id number] Ordering Dr: Valentina Underwood DO STUDY : CT ABDOMEN AND PELVIS WITH CONTRAST REASON FOR EXAM: Female, 39 years old. LOW ABD PAIN. Recent antibiotics for bronchitis. Prev cholecystectomy and appendectomy RADIATION DOSAGE (If Supplied By Facility): CTDIvol = ( 9.85 ) mGy, DLP = ( 1005.99 ) mGycm TECHNIQUE: Transaxial images were obtained from the dome of the diaphragm to the symphysis pubis without oral contrast. 100ml ml of Isovue 300 contrast was administered. Sagittal and coronal images were reconstructed. COMPARISON: None. FINDINGS: The visualized lung bases are unremarkable. The visu alized portions of the heart are within normal limits. There are hypodensities of the liver. These maybe cysts but are indeterminate and other etiologies are not excluded. Normal gallbladder and ex trahepatic biliary system. Normal spleen. Normal pancreas. Normal bilateral adrenal glands. Normal right kidney. Normal left kidney. Normal visualized stomach. Normal small intestine. There is wa ll thickening of the ascending and transverse colon. There is also inflammation around the colon. This can suggest a colitis. There are surgical clips in the region of the appendix consistent with a prior appendectomy. Normal abdominal aorta. Normal inferior vena cava. Normal retroperitoneum.33mm right ovarian cyst. Normal urinary bladder. Normal visualized uterus. Normal abdominal wall. Los s of intervertebral disc height at L5-S1. Vacuum disc phenomenon at L5-S1. IMPRESSION: Moderate colitis of the ascending colon and transverse colon. Given the brian soriano's history C. difficile colitis this finding differential. Electronically Signed: Cartlon Shaw MD at 19:15 EST , Service support [phone], CC: Valentina Underwood DO After School Program Teacher: Signed 23-Jul-2014 Transvaginal Non- Result: Comments: See Note; NOTES: [facility] Imaging Services [address] [place] [address] Ultrasound Report MR#: [id number] Acct: [id number] Name: DIEGO CHAPIN Rep #: [id number] : 1975 F 38 From: Joey Jolly MD PCP: Status: REG CLI Study: Transvaginal Non- Date of Exam: 07/23/14 Exam# [id number] Ordering Dr: Valarie Marsh STUDY: ULTRASOUND RAMIREZ SVAGINAL CLINICAL: Female, 38 years old. Pain TECHNIQUE: Transvaginal COMPARISON: None. FINDINGS: Normal uterine size measuring 9.1 x 4.6 x 5.7 cm in maxi mal craniocaudal dimension. There are no myometrial masses. Normal endometrial thickness measuring 6 mm. There are no endometrial masses, and there is no fluid in the endometrial cavity. IUD noted w ithin the endometrial canal Normal uterine cervix. Tiny nabothian cysts noted within the cervix. There is also a 6 x 8 x 4 mm anechoic density with internal debris possibly representing polyp Norm al right ovary, measuring 3.8 x 1.5 x 2.3 cm. There are multiple follicles without a dominant cyst. Normal left ovary, measuring 2.3 x 2 x 2 cm. There are multiple follicles without a dominant cyst. There is no free fluid in the pelvis. IMPRESSION: IUD noted within the endometrial canal. Cannot exclude tiny cervical polyp Electronically Signed: Joey Jolly MD at 22:57 EST , Service support [phone], CC: Valarie Marsh After School Program Teacher: Signed 23-Jul-2014 Pelvic (Non ) Result: Comments: See Note; NOTES: [facility] Imaging Services [address] [facility] [place] [address] Ultrasound Report MR#: [id number] Acct: [id number] Name: DIEGO CHAPIN Rep #: [id number] : 1975 F 38 From: Joey Jolly MD PCP: Status: REG CLI Study: Pelvic (Non ) Date of Exam: 07/23/14 Exam# [id number] Ordering Dr: Valarie Marsh STUDY: ULTRASOUND TRANSVAG INAL CLINICAL: Female, 38 years old. Pain TECHNIQUE: Transvaginal COMPARISON: None. FINDINGS: Normal uterine size measuring 9.1 x 4.6 x 5.7 cm in maximal craniocaudal dimension. There are no myometrial masses. Normal endometrial thickness measuring 6 mm. There are no endometrial masses, and there is no fluid in the endometrial cavity. IUD noted withi n the endometrial canal Normal uterine cervix. Tiny nabothian cysts noted within the cervix. There is also a 6 x 8 x 4 mm anechoic density with internal debris possibly representing polyp Normal r ight ovary, measuring 3.8 x 1.5 x 2.3 cm. There are multiple follicles without a dominant cyst. Normal left ovary, measuring 2.3 x 2 x 2 cm. There are multiple follicles without a dominant cyst. T here is no free fluid in the pelvis. IMPRESSION: IUD noted within the endometrial canal. Cannot exclude tiny cervical polyp Electronically Signed: Joey perry MD at 22:57 EST , Service support [phone], CC: Valarie Marsh After School Program Teacher: Signed 23-Jul-2014 Abdomen Complete Result: Comments: See Note; NOTES: [facility] Imaging Services [address] [place] [address] Ultrasound Report MR#: [id number] Acct: [id number] Name: DIEGO CHAPIN Rep #: [id number] : 1975 F 38 From: Joey Jolly MD PCP: Status: REG CLI Study: Abdomen Complete Date of Exam: 07/23/14 Exam# [id number] Ordering Dr: Valarie Marsh STUDY: ABDOMINAL ULTRASOUND R ELHAM FOR EXAM: Female, 38 years old. Right upper quadrant pain TECHNIQUE: Transabdominal ultrasound was performed with real-time and static paez scale imaging. TECHNICAL QUALITY: Adequate. BINDU RISON: None. FINDINGS: Liver: The liver measures 13.3 cm. There is normal echogenicity of the liver. The bile ducts are within normal limits. There is hepatic c olor flow. The direction of portal flow is hepatopetal. There is no demonstrated mass lesion. Gallbladder: Not visualized consistent with prior cholecystectomy Common Bile Duct (C.B.D.): The commo n bile duct measures 4 mm. Pancreas: Normal size of the head, body and tail of the pancreas. There is normal echogenicity of the pancreas. There is no demonstrated pancreatic mass or cyst. Spleen: Normal size of the spleen. The spleen measures 9.2 x 3.3 x 5.5 cm cm. Right Kidney: Normal size of the right kidney. The right kidney measures 11.7 x 5.2 x 5.8 cm cm. Normal renal cortex. The right cortex measures 2.1 cm cm. There is no demonstrated renal mass or cyst. There is no right hydronephrosis. Left Kidney: Normal size of the left kidney. The left kidney measures 10.7 x 4.6 x 5.4 cm cm. Normal renal cortex. The left cortex measures 1.7 cm. There is no demonstrated renal mass or cyst. There is no left hydronephrosis. Tiny hyperechoic focus demonstrated possibly representing nonob structing stone Aorta: No evidence for aneurysm I.V.C.: The IVC is patent. There is no ascites. IMPRESSION: No acute abnormalities status post cholecystecto my. Cannot exclude tiny nonobstructing calculus in the left kidney Electronically Signed: Joey Jolly MD at 22:54 EST , Service support [phone], Fax CC: Valarie Marsh After School Program Teacher: Signed Family History Unknown Family Member Name Dates Details Father Comments: Essential Hypertension, hyperlipidemia Status: Active First Degree Relatives Comments: Brain Cancer, Lung Cancer, bladder cancer Status: Active Maternal Grandmother Comments: Cervical Cancer, Colon Cancer 2000 Status: Active Mother Comments: Essential Hypertension Status: Active Social History Name Dates Details Exercise History Comments: Moderate 60 minutes qd, 6 days a week Status: Active Living Situation Comments: , heterosexual Status: Active No Caffeine Use Status: Active No Drug Use Status: Active Non Drinker/No Alcohol Use Status: Active Tobacco use: Current every day smoker. Status: Active Non Smoker/No Tobacco Use Status: Inactive Tobacco Use: Former smoker. Status: Inactive Smoking Status Name Dates Details Current every day smoker Vital Signs Date Test Result Details :59 Temperature 97.9 f Comments: Method: Temporal Pulse 64 /min Comments: Pattern: Regular Respiration Rate 18 /min Comments: Pattern: Unlabored O2 SAT 98 % Comments: Room air BP Systolic 122 mm[Hg] Comments: Patient Position: Sitting; Cuff Location: Left Arm; Cuff Size: Standard BP Diastolic 82 mm[Hg] Comments: Patient Position: Sitting; Cuff Location: Left Arm; Cuff Size: Standard Weight 148.125 lb Height 63 in Body Mass Index Calculated 26.24 kg/m2 Body Surface Area Calculated 1.7 m2 :23 Pulse 74 /min Comments: Pattern: Regular Respiration Rate 18 /min Comments: Pattern: Unlabored O2 SAT 98 % Comments: Room air BP Systolic 110 mm[Hg] Comments: Patient Position: Sitting; Cuff Location: Left Arm; Cuff Size: Standard BP Diastolic 78 mm[Hg] Comments: Patient Position: Sitting; Cuff Location: Left Arm; Cuff Size: Standard Weight 148.125 lb Height 63 in Body Mass Index Calculated 26.24 kg/m2 Body Surface Area Calculated 1.7 m2 :08 Temperature 98.1 f Comments: Method: Temporal Pulse 78 /min Comments: Pattern: Regular Respiration Rate 18 /min Comments: Pattern: Unlabored O2 SAT 98 % Comments: Room air BP Systolic 116 mm[Hg] Comments: Patient Position: Sitting; Cuff Location: Left Arm; Cuff Size: Standard BP Diastolic 74 mm[Hg] Comments: Patient Position: Sitting; Cuff Location: Left Arm; Cuff Size: Standard Weight 157.125 lb Height 63 in Body Mass Index Calculated 27.83 kg/m2 Body Surface Area Calculated 1.75 m2 :51 Temperature 98.6 f Pulse 83 /min Comments: Pattern: Regular Respiration Rate 17 /min Comments: Pattern: Unlabored O2 SAT 98 % Comments: Room air BP Systolic 114 mm[Hg] Comments: Patient Position: Sitting; Cuff Location: Left Arm; Cuff Size: Standard BP Diastolic 68 mm[Hg] Comments: Patient Position: Sitting; Cuff Location: Left Arm; Cuff Size: Standard Weight 169.375 lb Height 63 in Body Mass Index Calculated 30 kg/m2 Body Surface Area Calculated 1.8 m2 :31 Temperature 98.9 f Pulse 63 /min Comments: Pattern: Regular Respiration Rate 17 /min Comments: Pattern: Unlabored O2 SAT 98 % Comments: Room air BP Systolic 118 mm[Hg] Comments: Patient Position: Sitting; Cuff Location: Left Arm; Cuff Size: Standard BP Diastolic 82 mm[Hg] Comments: Patient Position: Sitting; Cuff Location: Left Arm; Cuff Size: Standard Weight 169.375 lb Height 63 in Body Mass Index Calculated 30 kg/m2 Body Surface Area Calculated 1.8 m2 :26 Temperature 97.6 f Pulse 72 /min Comments: Pattern: Regular Respiration Rate 17 /min Comments: Pattern: Unlabored O2 SAT 98 % Comments: Room air BP Systolic 118 mm[Hg] Comments: Patient Position: Sitting; Cuff Location: Left Arm; Cuff Size: Standard BP Diastolic 82 mm[Hg] Comments: Patient Position: Sitting; Cuff Location: Left Arm; Cuff Size: Standard Weight 165 lb Height 63 in Body Mass Index Calculated 29.23 kg/m2 Body Surface Area Calculated 1.78 m2 :10 Temperature 99.7 f Comments: Method: Temporal Pulse 60 /min Comments: Pattern: Regular Respiration Rate 15 /min Comments: Pattern: Unlabored O2 SAT 98 % Comments: Room air BP Systolic 102 mm[Hg] Comments: Patient Position: Sitting; Cuff Location: Left Arm; Cuff Size: Standard BP Diastolic 74 mm[Hg] Comments: Patient Position: Sitting; Cuff Location: Left Arm; Cuff Size: Standard Weight 165 lb Height 63 in Body Mass Index Calculated 29.23 kg/m2 Body Surface Area Calculated 1.78 m2 :02 Temperature 99.8 f Comments: Method: Temporal Pulse 66 /min Comments: Pattern: Regular Respiration Rate 16 /min Comments: Pattern: Unlabored O2 SAT 98 % Comments: Room air BP Systolic 118 mm[Hg] Comments: Patient Position: Sitting; Cuff Location: Left Arm; Cuff Size: Standard BP Diastolic 82 mm[Hg] Comments: Patient Position: Sitting; Cuff Location: Left Arm; Cuff Size: Standard Weight 154 lb Height 63 in Body Mass Index Calculated 27.28 kg/m2 Body Surface Area Calculated 1.73 m2 :17 Temperature 98 f Pulse 73 /min Comments: Pattern: Regular Respiration Rate 17 /min Comments: Pattern: Unlabored O2 SAT 96 % Comments: Room air BP Systolic 102 mm[Hg] Comments: Patient Position: Sitting; Cuff Location: Left Arm; Cuff Size: Standard BP Diastolic 68 mm[Hg] Comments: Patient Position: Sitting; Cuff Location: Left Arm; Cuff Size: Standard Weight 154 lb Height 63 in Body Mass Index Calculated 27.28 kg/m2 Body Surface Area Calculated 1.73 m2 :11 Temperature 99.6 f Comments: Method: Oral Pulse 74 /min Comments: Pattern: Regular Respiration Rate 16 /min Comments: Pattern: Unlabored BP Systolic 122 mm[Hg] Comments: Patient Position: Sitting; Cuff Location: Left Arm; Cuff Size: Standard BP Diastolic 74 mm[Hg] Comments: Patient Position: Sitting; Cuff Location: Left Arm; Cuff Size: Standard Weight 154 lb Height 63 in Body Mass Index Calculated 27.28 kg/m2 Body Surface Area Calculated 1.73 m2 :09 Temperature 99 f Comments: Method: Temporal Pulse 62 /min Comments: Pattern: Regular Respiration Rate 16 /min Comments: Pattern: Unlabored BP Systolic 110 mm[Hg] Comments: Patient Position: Sitting; Cuff Location: Left Arm; Cuff Size: Large BP Diastolic 76 mm[Hg] Comments: Patient Position: Sitting; Cuff Location: Left Arm; Cuff Size: Large Weight 156 lb Height 63 in Body Mass Index Calculated 27.63 kg/m2 Body Surface Area Calculated 1.74 m2 :48 Temperature 97.7 f Comments: Method: Temporal Pulse 82 /min Comments: Pattern: Regular Respiration Rate 18 /min Comments: Pattern: Unlabored O2 SAT 98 % Comments: Room air BP Systolic 100 mm[Hg] Comments: Patient Position: Sitting; Cuff Location: Left Arm; Cuff Size: Standard BP Diastolic 60 mm[Hg] Comments: Patient Position: Sitting; Cuff Location: Left Arm; Cuff Size: Standard Weight 158 lb Height 63 in Body Mass Index Calculated 27.99 kg/m2 Body Surface Area Calculated 1.75 m2 :47 Temperature 98.2 f Pulse 68 /min Comments: Pattern: Regular Respiration Rate 16 /min Comments: Pattern: Unlabored BP Systolic 94 mm[Hg] Comments: Patient Position: Sitting; Cuff Location: Left Arm; Cuff Size: Large BP Diastolic 68 mm[Hg] Comments: Patient Position: Sitting; Cuff Location: Left Arm; Cuff Size: Large Weight 158 lb Height 63 in Body Mass Index Calculated 27.99 kg/m2 Body Surface Area Calculated 1.75 m2 :50 Temperature 97.7 f Pulse 80 /min Comments: Pattern: Regular Respiration Rate 16 /min Comments: Pattern: Unlabored BP Systolic 94 mm[Hg] Comments: Patient Position: Sitting; Cuff Location: Left Arm; Cuff Size: Large BP Diastolic 62 mm[Hg] Comments: Patient Position: Sitting; Cuff Location: Left Arm; Cuff Size: Large Weight 158 lb Height 63 in Body Mass Index Calculated 27.99 kg/m2 Body Surface Area Calculated 1.75 m2 :58 Temperature 98.7 f Pulse 84 /min Comments: Pattern: Regular Respiration Rate 16 /min Comments: Pattern: Unlabored BP Systolic 108 mm[Hg] Comments: Patient Position: Sitting; Cuff Location: Left Arm; Cuff Size: Large BP Diastolic 64 mm[Hg] Comments: Patient Position: Sitting; Cuff Location: Left Arm; Cuff Size: Large Weight 158 lb Height 63 in Body Mass Index Calculated 27.99 kg/m2 Body Surface Area Calculated 1.75 m2 :31 Temperature 97.6 f Comments: Method: Oral Pulse 66 /min Comments: Pattern: Regular O2 SAT 99 % Comments: Room air BP Systolic 120 mm[Hg] Comments: Patient Position: Sitting; Cuff Location: Left Arm; Cuff Size: Standard BP Diastolic 72 mm[Hg] Comments: Patient Position: Sitting; Cuff Location: Left Arm; Cuff Size: Standard Weight 154.375 lb Height 63 in Body Mass Index Calculated 27.35 kg/m2 Body Surface Area Calculated 1.73 m2 :05 Temperature 98.2 f Comments: Method: Oral Pulse 70 /min Comments: Pattern: Regular O2 SAT 98 % Comments: Room air BP Systolic 118 mm[Hg] Comments: Patient Position: Sitting; Cuff Location: Left Arm; Cuff Size: Standard BP Diastolic 78 mm[Hg] Comments: Patient Position: Sitting; Cuff Location: Left Arm; Cuff Size: Standard Weight 154.375 lb Height 63 in Body Mass Index Calculated 27.35 kg/m2 Body Surface Area Calculated 1.73 m2 :04 Temperature 99.2 f Pulse 76 /min Comments: Pattern: Regular Respiration Rate 16 /min Comments: Pattern: Unlabored O2 SAT 98 % Comments: Room air BP Systolic 102 mm[Hg] Comments: Patient Position: Sitting; Cuff Location: Left Arm; Cuff Size: Large BP Diastolic 60 mm[Hg] Comments: Patient Position: Sitting; Cuff Location: Left Arm; Cuff Size: Large Weight 150 lb Height 63.25 in Body Mass Index Calculated 26.36 kg/m2 Body Surface Area Calculated 1.72 m2 :32 Temperature 98.2 f Comments: Method: Temporal Pulse 72 /min Comments: Pattern: Regular Respiration Rate 16 /min Comments: Pattern: Unlabored O2 SAT 98 % Comments: Room air BP Systolic 108 mm[Hg] Comments: Patient Position: Sitting; Cuff Location: Left Arm; Cuff Size: Standard BP Diastolic 70 mm[Hg] Comments: Patient Position: Sitting; Cuff Location: Left Arm; Cuff Size: Standard Weight 169.3125 lb Height 63.25 in Body Mass Index Calculated 29.76 kg/m2 Body Surface Area Calculated 1.81 m2 :30 Temperature 98.6 f Comments: Method: Oral Pulse 70 /min Comments: Pattern: Regular Respiration Rate 18 /min BP Systolic 120 mm[Hg] Comments: Patient Position: Sitting; Cuff Location: Left Arm; Cuff Size: Standard BP Diastolic 70 mm[Hg] Comments: Patient Position: Sitting; Cuff Location: Left Arm; Cuff Size: Standard Weight 169.3125 lb Height 63.25 in Body Mass Index Calculated 29.76 kg/m2 Body Surface Area Calculated 1.81 m2 :05 Temperature 97.4 f Comments: Method: Oral Pulse 72 /min Comments: Pattern: Regular Respiration Rate 20 /min Comments: Pattern: Unlabored BP Systolic 128 mm[Hg] Comments: Patient Position: Sitting; Cuff Location: Left Arm; Cuff Size: Large BP Diastolic 80 mm[Hg] Comments: Patient Position: Sitting; Cuff Location: Left Arm; Cuff Size: Large Weight 169.3125 lb Height 63.25 in Body Mass Index Calculated 29.76 kg/m2 Body Surface Area Calculated 1.81 m2 :55 Pulse 58 /min Comments: Pattern: Regular Respiration Rate 16 /min BP Systolic 124 mm[Hg] Comments: Patient Position: Sitting; Cuff Location: Left Arm; Cuff Size: Standard BP Diastolic 72 mm[Hg] Comments: Patient Position: Sitting; Cuff Location: Left Arm; Cuff Size: Standard Weight 162 lb Height 63.25 in Body Mass Index Calculated 28.47 kg/m2 Body Surface Area Calculated 1.77 m2 :05 Temperature 99.2 f Comments: Method: Oral Pulse 72 /min Comments: Pattern: Regular Respiration Rate 16 /min Comments: Pattern: Unlabored BP Systolic 112 mm[Hg] Comments: Patient Position: Sitting; Cuff Location: Left Arm; Cuff Size: Standard BP Diastolic 70 mm[Hg] Comments: Patient Position: Sitting; Cuff Location: Left Arm; Cuff Size: Standard Weight 162 lb Height 63.25 in Body Mass Index Calculated 28.47 kg/m2 Body Surface Area Calculated 1.77 m2 :14 Temperature 97.8 f Comments: Method: Oral Pulse 68 /min Comments: Pattern: Regular Respiration Rate 18 /min Comments: Pattern: Unlabored BP Systolic 104 mm[Hg] Comments: Patient Position: Sitting; Cuff Location: Left Arm; Cuff Size: Standard BP Diastolic 68 mm[Hg] Comments: Patient Position: Sitting; Cuff Location: Left Arm; Cuff Size: Standard Weight 162 lb Height 63.25 in Body Mass Index Calculated 28.47 kg/m2 Body Surface Area Calculated 1.77 m2 :17 Temperature 97.7 f Pulse 72 /min Comments: Pattern: Regular Respiration Rate 16 /min Comments: Pattern: Unlabored BP Systolic 110 mm[Hg] Comments: Patient Position: Sitting; Cuff Location: Left Arm; Cuff Size: Large BP Diastolic 70 mm[Hg] Comments: Patient Position: Sitting; Cuff Location: Left Arm; Cuff Size: Large Weight 162 lb Height 63.25 in Body Mass Index Calculated 28.47 kg/m2 Body Surface Area Calculated 1.77 m2 :02 Temperature 98 f Pulse 68 /min Comments: Pattern: Regular Respiration Rate 16 /min Comments: Pattern: Unlabored BP Systolic 102 mm[Hg] Comments: Patient Position: Sitting; Cuff Location: Left Arm; Cuff Size: Large BP Diastolic 78 mm[Hg] Comments: Patient Position: Sitting; Cuff Location: Left Arm; Cuff Size: Large Weight 161 lb Height 63.25 in Body Mass Index Calculated 28.29 kg/m2 Body Surface Area Calculated 1.77 m2 :25 Temperature 98.5 f Pulse 68 /min Comments: Pattern: Regular Respiration Rate 16 /min Comments: Pattern: Unlabored BP Systolic 94 mm[Hg] Comments: Patient Position: Sitting; Cuff Location: Left Arm; Cuff Size: Large BP Diastolic 66 mm[Hg] Comments: Patient Position: Sitting; Cuff Location: Left Arm; Cuff Size: Large Weight 162 lb Height 63 in Body Mass Index Calculated 28.7 kg/m2 Body Surface Area Calculated 1.77 m2 :25 Temperature 97.7 f Pulse 60 /min Comments: Pattern: Regular Respiration Rate 16 /min Comments: Pattern: Unlabored BP Systolic 94 mm[Hg] Comments: Patient Position: Sitting; Cuff Location: Left Arm; Cuff Size: Large BP Diastolic 68 mm[Hg] Comments: Patient Position: Sitting; Cuff Location: Left Arm; Cuff Size: Large Weight 153 lb Height 63.5 in Body Mass Index Calculated 26.68 kg/m2 Body Surface Area Calculated 1.74 m2 :58 Temperature 98.3 f Comments: Method: Undefined Pulse 72 /min Comments: Pattern: Regular Respiration Rate 16 /min Comments: Pattern: Undefined O2 SAT 98 % Comments: Room air BP Systolic 100 mm[Hg] Comments: Patient Position: Sitting; Cuff Location: Right Arm; Cuff Size: Standard BP Diastolic 74 mm[Hg] Comments: Patient Position: Sitting; Cuff Location: Right Arm; Cuff Size: Standard Weight 0 lb Height 0 in Head Circumference 0.00 cm 85-Gnh-080188:04 Temperature 99.3 f Comments: Method: Oral Pulse 76 /min Comments: Pattern: Regular Respiration Rate 20 /min Comments: Pattern: Unlabored BP Systolic 116 mm[Hg] Comments: Patient Position: Sitting; Cuff Location: Left Arm; Cuff Size: Standard BP Diastolic 78 mm[Hg] Comments: Patient Position: Sitting; Cuff Location: Left Arm; Cuff Size: Standard Weight 205 lb Height 64 in Body Mass Index Calculated 35.19 kg/m2 Body Surface Area Calculated 1.98 m2 Head Circumference 0.00 cm Results Date Description Value Details 86-[id number]:00 THROAT CULTURE (00732) Comments: PERFORMED BY: [employer] [place] [id number] Information: [facility]: Result 1 BETAGC (Abnormal) Comments: Beta hemolytic Streptococcus, group CLight growthPenicillin and ampicillin are drugs of choice for treatment ofbeta- hemolytic streptococcal infections. Susceptibility testing ofpenicillins and other bet a-lactam agents approved by the FDA fortreatment of beta-hemolytic streptococcal infections need not beperformed routinely because nonsusceptible isolates are extremelyrare in any beta-hemolytic strepto coccus and have not been reportedfor Streptococcus pyogenes (group A). (CLSI) Upper Respiratory Culture Final report (Abnormal) 32-Hrc-125926:09 Rapid Strep Test, Office (87067) Rapid Strep Test, Office Negative (Normal) 63-Orz-95787:40 T4, FREE (THYROXINE) (86305) Comments: PATIENT NOT FASTINGPERFORMED BY: [employer] [place] [id number] T4,Free(Direct) 0.99 ng/dL (Normal) Range: 0.82-1.77 53-Tut-98604:40 T3, FREE (TRIDOTHYRONINE) (37444) Comments: PATIENT NOT FASTINGPERFORMED BY: [employer] [place] [id number] Triiodothyronine,Free,Serum 3.1 pg/mL (Normal) Range: 2.0-4.4 :40 CALCIFIDIOL (29592) VIT D 25 Comments: PATIENT NOT FASTINGPERFORMED BY: [facility] [id number] Vitamin D, 25-Hydroxy 60.4 ng/mL (Normal) Range: 30.0-100.0 Comments: Vitamin D deficiency has been defined by the [place] of[facility] and an Endocrine Society practice guideline as alevel of serum 25-OH vitamin D less than 20 ng/mL (1,2).The Endocrine Society went on to further define vitamin Dinsufficiency as a level between 21 and 29 ng/mL (2).1. IOM ([place] of Medicine). 2010. Dietary reference intakes for calcium and D. [place]: The National AcademWest [facility] Press.2. Loulou MF, [place] MANCUSO, Dorina GOLDSMITH, et al. Evaluation, treatment, and prevention of vitamin D deficiency: an Endocrine Society clinical practice guideline. JCEM. 2010; 96(7):1911-30. :40 TSH (09559) Comments: PATIENT NOT FASTINGPERFORMED BY: [facility] [id number] TSH 2.790 {uIU/mL} (Normal) Range: 0.450-4.500 :23 T4, FREE (THYROXINE) (95827) Comments: PATIENT WAS FASTINGPERFORMED BY: [facility] [id number] T4,Free(Direct) 1.15 ng/dL (Normal) Range: 0.82-1.77 :23 T3, FREE (TRIDOTHYRONINE) (18868) Comments: PATIENT WAS FASTINGPERFORMED BY: [facility] [id number] Triiodothyronine,Free,Serum 2.6 pg/mL (Normal) Range: 2.0-4.4 :23 TSH (54584) Comments: PATIENT WAS FASTINGPERFORMED BY: [facility] [id number] TSH 2.560 {uIU/mL} (Normal) Range: 0.450-4.500 :23 CALCIFIDIOL (17351) VIT D 25 Comments: PATIENT WAS FASTINGPERFORMED BY: [facility]6[address] [facility] [id number] Vitamin D, 25-Hydroxy 67.6 ng/mL (Normal) Range: 30.0-100.0 Comments: Vitamin D deficiency has been defined by the [place] of[place]icine and an Endocrine Society practice guideline as alevel of serum 25-OH vitamin D less than 20 ng/mL (1,2).The Endocrine Society went on to further define vitamin Dinsufficiency as a level between 21 and 29 ng/mL (2).1. IOM ([place] of Medicine). 2010. Dietary reference intakes for calcium and D. [place]: The National Academies Press.2. Loulou MF, [place]el MANCUSO, Dorina GOLDSMITH, et al. Evaluation, treatment, and prevention of vitamin D deficiency: an Endocrine Society clinical practice guideline. JCEM. 2010; 96(7):1911-30. :23 METABOLIC PANEL, COMPREHENSIVE Comments: PATIENT WAS FASTINGPERFORMED BY: [facility]6[address] [facility] [id number] (54940) ALT (SGPT) 12 [iU]/L (Normal) Range: 0-32 AST (SGOT) 18 [iU]/L (Normal) Range: 0-40 Alkaline Phosphatase, S 60 [iU]/L (Normal) Range: 39-117 Bilirubin, Total 0.8 mg/dL (Normal) Range: 0.0-1.2 A/G Ratio 2.3 (Abnormal) Range: 1.2-2.2 Globulin, Total 2.0 g/dL (Normal) Range: 1.5-4.5 Albumin, Serum 4.6 g/dL (Normal) Range: 3.5-5.5 Protein, Total, Serum 6.6 g/dL (Normal) Range: 6.0-8.5 Calcium, Serum 9.4 mg/dL (Normal) Range: 8.7-10.2 Carbon Dioxide, Total 23 mmol/L (Normal) Range: 18-29 Chloride, Serum 104 mmol/L (Normal) Range: 96-106 Potassium, Serum 4.2 mmol/L (Normal) Range: 3.5-5.2 Sodium, Serum 144 mmol/L (Normal) Range: 134-144 BUN/Creatinine Ratio 15 (Normal) Range: 9-23 eGFR If Africn Am 97 mL/min/1.73 (Normal) eGFR If NonAfricn Am 84 mL/min/1.73 (Normal) Creatinine, Serum 0.85 mg/dL (Normal) Range: 0.57-1.00 BUN 13 mg/dL (Normal) Range: 6-24 Glucose, Serum 79 mg/dL (Normal) Range: 65-99 06-Hlt-16046:23 LIPID PANEL (32009) Comments: PATIENT WAS FASTINGPERFORMED BY: [facility] Qqtbpi4184 [facility] [id number] LDL/HDL Ratio 2.1 {ratio_units} (Normal) Range: 0.0-3.2 Comments: LDL/HDL Ratio Men Women 1/2 Avg.Risk 1.0 1.5 Av g.Risk 3.6 3.2 2X Avg.Risk 6.2 5.0 3X Avg.Risk 8.0 6.1 LDL Cholesterol Calc 109 mg/dL (Abnormal) Range: 0-99 VLDL Cholesterol Gracy 16 mg/dL (Normal) Range: 5-40 HDL Cholesterol 53 mg/dL (Normal) Triglycerides 80 mg/dL (Normal) Range: 0-149 Cholesterol, Total 178 mg/dL (Normal) Range: 100-199 :04 CBC W/Diff, Automated Comments: [facility] [address] [place], [place], [id number] ; OV 11/23/16 Absolute Lymph 1.60 {X10_3/ul} (Normal) Range: 0.83-4.51 Absolute Neut 4.8 {X10_3/uL} (Normal) Range: 2.0-7.7 IM GRAN % 0.100 % (Normal) Range: 0.0-0.9 Comments: IG% - Immature Granulocytes (promyelocytes, myelocytes andmetamyelocytes) > 1% indicates that a LEFT SHIFT is Present. BASO% 0.4 % (Normal) Range: 0-1 EO% 3.4 % (Normal) Range: 0-5 MONO% 8.6 % (Normal) Range: 0-10 LY% 21.7 % (Normal) Range: 19-41 NEUT% 65.8 % (Normal) Range: 47-70 MPV 10.0 fL (Normal) Range: 6.2-12.0 PLT 214 K/mm3 (Normal) Range: 150-450 RDW SD 44.7 fL (Abnormal) Range: 35.1-43.9 RDW CV 12.8 % (Normal) Range: 11.6-14.6 MCHC 32.7 {g/gl} (Normal) Range: 32-36 MCH 31.4 pg (Normal) Range: 27.0-32.0 MCV 96.0 fL (Normal) Range: 81-99 HCT 40.7 % (Normal) Range: 37-47 HGB 13.3 g/dL (Normal) Range: 12.0-15.0 RBC 4.24 {M/mm3} (Normal) Range: 4.2-5.4 WBC 7.4 K/mm3 (Normal) Range: 4.4-11.0 :04 Comprehensive Metabolic Profil Comments: [facility] [address] [place], [address] GAP 0 (Abnormal) Range: 5-15 CO2 29.0 mmol/L (Normal) Range: 21.0-32.0 CL 111 mmol/L (Abnormal) Range: 98-107 K 3.5 mmol/L (Normal) Range: 3.5-5.1 NA 140 mmol/L (Normal) Range: 136-145 T BILI 1.10 mg/dL (Abnormal) Range: 0.20-1.00 ALT 28 U/L (Normal) Range: 12-78 ALK P 58 U/L (Normal) Range: 45-117 AST 16 U/L (Normal) Range: 15-37 CA 8.7 mg/dL (Normal) Range: 8.5-10.1 A/G 1.4 {RATIO} (Normal) Range: 0.9-2.4 GLOB 2.8 g/dL (Normal) Range: 2.3-3.5 ALB 3.8 g/dL (Normal) Range: 3.4-5.0 T PROT 6.6 g/dL (Normal) Range: 6.4-8.2 BUN/CRE 17.5 {RATIO} (Normal) Range: 10-20 EST GFR - AA 101 mL/min (Normal) Comments: GFR Calc EST GFR 84 mL/min (Normal) Comments: Non- GFR Calc CREAT,SERUM 0.80 mg/dL (Normal) Range: 0.55-1.02 Comments: The validity of the calculated GFR AND GFRAA in patients over70 years has not been determined. Clinical correlation isessential. BUN 14 mg/dL (Normal) Range: 7-18 GLU 69 mg/dL (Abnormal) Range: 70-110 :04 Follicle Stimulating Hormone Comments: [facility] [address] [place], [place], [address] FSH 8.3 m[iU]/mL (Normal) Comments: NORMAL REFERENCE RANGES FEMALE FOLLICULAR 2.3 - 12.6 mIU/mL MID-CYCLE PEAK 5.2 - 17.5 mIU/mL LUTEAL 1.7 - 12.9 mIU/mL POST-MENOPAUSAL ON MHT 5.9 - 72.8 mIU/mL NOT ON MHT 12.7 - 132.2 mlU/mL MALE 0.7 - 10.8 mIU/mLNEW TEST METHOD AND REFERENCE RANGES JANUARY 04, 2012:04 Lipid Profile Comments: [facility] [address] [place], [place], [address] VLDL 11 mg/dL (Normal) Range: 5-40 LDL 77 mg/dL (Normal) Range: 0-130 HDL 60 mg/dL (Normal) Comments: The drugs N-Acetylcysteine and Metamizole may falsely deressthis assay. Reference Range HDL <40 mg/dL Low HDL Cholesterol HDL >or= 60 mg/dL High HDL Cholesterol TRIG 55 mg/dL (Normal) Comments: The drugs N-Acetylcysteine and Metamizole may falsely deressthis assay.Serum Triglycerides Reference Interval Normal <150 mg/dL Borderline high 150 - 199 mg/dL High 200 - 499 mg/dL Very High > or = 500 mg/dL CHOL 148 mg/dL (Normal) Comments: <200 mg/dL Desirable 200-240 mg/dL Borderline >240 mg/dL High Risk :04 Luteinizing Hormone Comments: [facility] [address] [place], [address] LH 9.4 m[iU]/mL (Normal) Comments: NORMAL REFERENCE RANGES FEMALE FOLLICULAR 1.9 - 26.2 mIU/mL MID-CYCLE PEAK 22.8 - 76.1 mIU/mL LUTEAL 0.6 - 16.6 mIU/mL POST-MENOPAUSAL ON MHT 1.1 - 52.4 mIU/mL NOT ON MHT 8.6 - 61.8 mIU/mL MALE 1.2 - 10.6 mIU/mLNEW TEST METHOD AND REFERENCE RANGES JANUARY 04, 201217-Nov-20167:04 Thyroid Stim Hormone (TSH) Comments: [facility] [address] [place], [address] TSH 3.86 {uIU/mL} (Abnormal) Range: 0.358-3.74 :04 Vitamin D,25 Hydroxy Comments: [facility] [address] [place], [address] ; ov 11/23 Vitamin D 25-OH 26.7 ng/mL (Normal) Comments: Vitamin D 25(OH) Status Range Deficiency <20 ng/mL (50nmol/L) Insuffciency 20 - 30 ng/mL (50 - 75 nmol/L) Sufficiency 30 - 100 ng/mL (75 - 250 nmol/L) Toxicity >100 ng/mL (>250 nmol/L) 90-Rbx-528214:00 CDIFF (Molecular) Comments: [facility] [address] [place], [address] CDIFF See Note (Normal) Comments: Cdiff-MolecularC. Diff DNA Negative- No toxigenic C. Diff DNA Detected 70-Oun-55987:10 CBC-Complete Blood Cnt No Diff Comments: [facility] [address] [place], [address] ; another doc MPV 9.8 fL (Normal) Range: 6.2-12.0 PLT 178 K/mm3 (Normal) Range: 150-450 RDW SD 45.2 fL (Abnormal) Range: 35.1-43.9 RDW CV 13.6 % (Normal) Range: 11.6-14.6 MCHC 33.2 {g/gl} (Normal) Range: 32-36 MCH 31.8 pg (Normal) Range: 27.0-32.0 MCV 95.7 fL (Normal) Range: 81-99 HCT 33.1 % (Abnormal) Range: 37-47 HGB 11.0 g/dL (Abnormal) Range: 12.0-15.0 RBC 3.46 {M/mm3} (Abnormal) Range: 4.2-5.4 WBC 10.0 K/mm3 (Normal) Range: 4.4-11.0 :10 Serum Creatinine AND GFR Comments: [facility] [address] [place], [address] Estimated CRCL 83.03 ml/min (Normal) EST GFR - AA 105 mL/min (Normal) Comments: GFR Calc EST GFR 87 mL/min (Normal) Comments: Non- GFR Calc CREAT,SERUM 0.77 mg/dL (Normal) Range: 0.55-1.20 Comments: The validity of the calculated GFR AND GFRAA in patients over70 years has not been determined. Clinical correlation isessential. :37 UTERUS See Note (Normal) Comments: [facility] [address] [place], [place], [phone] Comments: Patient: DIEGO THOMSON : 1975 (40/F) Acct Num: [id number] Phys: Sebastien LARSEN,[place] Unit Num: [id number] Loc: [facility] Specimen: [id number] Received: 05/25/16851 Spec Type: UTER US TISSUES TISSUES: GROSS DESCRIPTION Received is one container labeled with the patient's name and designated uterus, cervix. The specimen consists of a hysterectomy specimen cons isting of uterus with cervix weighing 103 gm and measures 9.5 x 6 x 4 cm. The serosal surface is geiger, glistening. The proximal portion of bilateral fallopian tubes is present with Filshie clip. This appears intact. The portion of right fallopian tube measures 1 cm in length and 0.5 cm in diameter and portion of left fallopian tube measures 1.5 cm in length and 0.5 cm in diameter. The ectocervix i s unremarkable. The external os is slit-like in contour. The endocervical canal measures 4 cm in length and the endocervical mucosa is unremarkable. The triangular endometrial cavity measures 5 cm in length and up to 2.5 cm in width. The endometrium is geiger, glistening without any mass lesion and measures 0.1 cm in thickness. Sections of the uterine wall measure up to 2.5 cm in thickness. Section s of the uterine wall reveal an ill-defined nodularmass measuring 1 cm in greatest dimension. Principal Biostatistician sections are submitted in nine cassettes as follows: 1 AND 2 - anterior cervix, 3 - pos terior cervix, 4 AND 5 - anterior uterine wall, 6 AND 7 - posterior uterine wall, 8 - ill-defined nodular mass, entirely submitted, 9 - bilateral fallopian tube proximal portion, right inked black, entirely submitted. / SJ:alice 05/25/16 TC:5 CPT:32780 HEADER OPERATION: Hysterectomy, vaginal PRE-OP DIAGNOSIS: Menorrhagia, uterine fibroids, dysmenorrhea TISSUE SUBMITTED: Uterus, cervix MICROSCOPIC DESCRIPTION Slides are reviewed. MICROSCOPIC DIAGNOSIS Uterus, hysterectomy: Cervix - nabothian cysts and squamous metaplasia. Endometrium - proliferative endometrium. Myometrium - adenomyosis. Right and left fallopian tubes - no pathologic change. AM:alice 05/26/16 Signed Robert [facility] 05/26/16 <si gnature on file> 6-Rtn-613966:42 CBC-Complete Blood Cnt No Diff Comments: [facility] [address] [place], [place], [address] MPV 9.8 fL (Normal) Range: 6.2-12.0 PLT 217 K/mm3 (Normal) Range: 150-450 RDW SD 46.1 fL (Abnormal) Range: 35.1-43.9 RDW CV 13.4 % (Normal) Range: 11.6-14.6 MCHC 33.7 {g/gl} (Normal) Range: 32-36 MCH 31.7 pg (Normal) Range: 27.0-32.0 MCV 93.8 fL (Normal) Range: 81-99 HCT 41.2 % (Normal) Range: 37-47 HGB 13.9 g/dL (Normal) Range: 12.0-15.0 RBC 4.39 {M/mm3} (Normal) Range: 4.2-5.4 WBC 9.1 K/mm3 (Normal) Range: 4.4-11.0 :42 Partial Thromboplast Time Comments: [facility] [address] [place], [place], [id number] PTT 33.0 s (Normal) Range: 24.1-36.2 :42 ,Serum,hCG Quali. Comments: [facility] [address] [place], [place], [phone] HCGSQUAL NEGATIVE {Negative} (Normal) Range: 0-9 Nonpreg HCG Qual triggr < 1 m[iU]/mL (Normal) :42 Prothrombin Time w/INR Comments: [facility] [address] [place], [place], [phone] INR 1.0 (Normal) PROTIME 13.3 s (Normal) Range: 11.7-14.9 :42 Serum Creatinine AND GFR Comments: [facility] [address] [place], [place], [id number] EST GFR - AA 100 mL/min (Normal) Comments: GFR Calc EST GFR 83 mL/min (Normal) Comments: Non- GFR Calc CREAT,SERUM 0.81 mg/dL (Normal) Range: 0.55-1.20 Comments: The validity of the calculated GFR AND GFRAA in patients over70 years has not been determined. Clinical correlation isessential. :42 Type AND Screen Comments: Surgery Date: 05/25/16Hx of Preganancy in last 3 Months NoEver experience any problems with transfusion(s)? NHx of Transfusion in last 3 Months NReason for Type AND Screen/Red Cells: SURGERYTime: 0600SURGICAL PROCED[facility] [address] [place], [address] Antibody Screen NEGATIVE (Normal) BLOOD TYPE GEL A POSITIVE (Normal) 05-Dyb-41651:00 COLON BIOPSY (CHOOSE See Note (Normal) Comments: [facility] [address] [place], [address] SITE) Comments: Patient: DIEGO THOMSON : 1975 (40/F) Acct Num: [id number] Phys: Dyllan Rosen Unit Num: [id number] Loc: [facility] Specimen: [id number] Received: 03/26/16 - 1358 Spec Type: COLON BX TISSUES TISSUES: COMMENT A. Trichrome stain with matched controls supports the above diagnosis. B. Prominent benign lymphoid aggregates are present in the mucosa. NAV SS DESCRIPTION A - Received is one container labeled with the patient name and designated right and left colon. The specimen consists of multiple irregular fragments of light geiger soft tissue that i n aggregate measure 2 x 0.6 x 0.1 cm. The specimen is totally submitted in one cassette. B - Received is one container labeled with the patient name and designated proximal terminal ileum biopsy. The specimen consists of two irregular fragments of light geiger soft tissue that in aggregate measure 0.6 x 0.2 x 0.1 cm.The specimen is totally submitted in one cassette. / AM:alice 03/26/16 TC:3 CPT:8 8305 x2, 55585 HEADER OPERATION: Colonoscopy with biopsies PRE-OP DIAGNOSIS: Chronic diarrhea TISSUE SUBMITTED: A - Right and left colon biopsies, R/O microscopic colitis, B - Terminal ileum biopsies, R/O Crohn's MICROSCOPIC DESCRIPTION Slides are reviewed. MICROSCOPIC DIAGNOSIS A. Right and left colon, biopsies: Collagenous colitis. B. Terminal ileum, biopsy: N o significant pathologic change. No evidence of Crohn's enteritis. AM:alice 03/27/16 Signed Robert Kiel 03/27/16 <signature on file> 21-Mar-20160:00 CDIFF (Molecular) Comments: [facility] [address] [place] [place], [address] CDIFF See Note (Normal) Comments: Cdiff-MolecularC. Diff DNA Negative- No toxigenic C. Diff DNA Detected ENDOMETRIAL See Note (Normal) Comments: [facility] [address] [place], [address] :00 BX/CURETTINGS Comments: Patient: DIEGO THOMSON : 1975 (40/F) Acct Num: [id number] Phys: Pool Dempsey Unit Num: [id number] Loc: [facility] Specimen: [id number] Received: 02/12/16 - 170 Spec Type: ENDO M BX/C TISSUES TISSUES: GROSS DESCRIPTION Received is one container labeled with the patient name and designated EM biopsy. The specimen consists of multiple fragments of pink soft tissue mixed with blood clot that in aggregate measure 3 x 2.5 x 0.1 cm. The specimen is totally submitted in one cassette. / WALESKA:alice 02/13/16 TC:4 CPT:59435 HEADER OPERATION: Endometrial biops y PRE-OP DIAGNOSIS: N92.1 TISSUE SUBMITTED: Endometrial biopsy MICROSCOPIC DESCRIPTION Slides are reviewed. MICROSCOPIC DIAGNOSIS Endometrial biopsy: Proliferative endometrium. SJ:alice 02/14/16 Signed Paulino Goff 02/14/16 <signature on file> 20-Dec-20158:10 HEPATIC FUNCTION PANEL Comments: PATIENT NOT FASTINGPERFORMED BY: [facility] Ggdqih6741 Ginny [facility]Formerly [facility], [facility] [id number] Information: [id number] (08124) ALT (SGPT) 24 [iU]/L (Normal) Range: 0-32 AST (SGOT) 24 [iU]/L (Normal) Range: 0-40 Alkaline Phosphatase, S 53 [iU]/L (Normal) Range: 39-117 Bilirubin, Direct 0.21 mg/dL (Normal) Range: 0.00-0.40 Bilirubin, Total 0.8 mg/dL (Normal) Range: 0.0-1.2 Albumin, Serum 4.4 g/dL (Normal) Range: 3.5-5.5 Protein, Total, Serum 6.5 g/dL (Normal) Range: 6.0-8.5 :10 Vitamin D Hydroxy (63878) Comments: PATIENT NOT FASTINGPERFORMED BY: [employer] D[address]hs[address]73 [facility] [id number] Vitamin D, 25-Hydroxy 36.7 ng/mL (Normal) Range: 30.0-100.0 Comments: Vitamin D deficiency has been defined by the [place] of[place]icine and an Endocrine Society practice guideline as alevel of serum 25-OH vitamin D less than 20 ng/mL (1,2).The Endocrine Society went on to further define vitamin Dinsufficiency as a level between 21 and 29 ng/mL (2).1. IOM ([place] of Medicine). 2010. Dietary reference intakes for calcium and D. [place]: The National Academies Press.2. Loulou MF, [place], Dorina GOLDSMITH, et al. Evaluation, treatment, and prevention of vitamin D deficiency: an Endocrine Society clinical practice guideline. JCEM. 2010; 96(7):1911-30. :10 CYEHT-NXBVLYLIYAW-LMURL (24217) Comments: PATIENT NOT FASTINGPERFORMED BY: [facility] Jrdcqa2531 [facility] [id number] AFP, Serum, Tumor Marker 1.2 ng/mL (Normal) Range: 0.0-8.3 Comments: Caridad ECLIA methodology 0-Xcc-939537:27 URINE VERNA CULTURE-KITTY COL Comments: PATIENT NOT FASTINGPERFORMED BY: [employer] Zgzeat8860 [facility] [id number] Information: SRC:URC [id number] COUNT (30786) Result 1 MUG (Normal) Comments: Mixed urogenital [id number] Colonies/mL Urine Culture,Comprehensive Final report (Normal) :19 Urinalysis, Office (17747) UA - LEUKOCYTE ESTERASE Negative (Normal) UA - NITRITE Negative (Normal) URINE UROBILINGN KITTY Normal mg/dL (Normal) TIMED UA - PROTEIN Negative mg/dL (Normal) UA - PH 6.5 (Normal) UA - BLOOD Hemolyzed Small (Normal) UA - SPECIFIC GRAVITY 1.010 (Normal) UA - KETONES Negative mg/dL (Normal) UA - BILIRUBIN Negative (Normal) UA - GLUCOSE Negative (Normal) : FALLOPIAN See Note (Normal) Comments: [facility] [address] [place], [address] 37 TUBES/STERILIZATION Comments: Patient: DIEGO THOMSON : 1975 (39/F) Acct Num: [id number] Phys: Sebastien LARSEN,[facility] Unit Num: [id number] Loc: [facility] Specimen: [id number] Received: 08/05/15 - 1124 Spec Type: FALL TUBES TISSUES TISSUES: COMMENT B - AFB and GMS stains with matched controls were used in the evaluation of thiscase. GROSS DESCRIPTION A - Received is one container labeled wit h the patient name and designated bilateral fallopian tubes. The specimen consists of two tubular pieces of geiger-pink soft tissue including fimbrial ends consistent with bilateral fallopian tubes. Jadiel th of the tubes measure 4 cm in length and 0.5 cm in diameter. Sections reveal unremarkable cut surfaces. Principal Biostatistician sections are submitted in two cassettes with each cassette containing sections from one fallopian tube including fimbrial end. B - Received is one container labeled with the patient name and designated endometrial curettings. The specimen consists of multiple fragments of he morrhagic soft tissue measuring in aggregate 2.5 x 2.5 x 0.3 cm. The specimenis totally submitted in one cassette. C - Received is one container labeled with the patient name and designated endocer vical curettings. The specimen consists of multiple fragments of hemorrhagic soft tissue measuring in aggregate 2.5 x 1.5 x 0.1 cm. The specimenis totally submitted in one cassette. / Malina 08/05/15 TC:3 CPT: 48291 x2, 46339 x2, 48022 x2 HEADER OPERATION: Hysteroscopy, diagnostic, D AND C, Filshie clips PRE-OP DIAGNOSIS: Irregular menstrual cycle, leiomyoma of uterus, mucus polyp of ce rvix, right ovarian cyst, IUD removal, desires permanent sterilization TISSUE SUBMITTED: A - Bilateral fallopian tubes, B - Endometrial curettings, C - Endocervical curettings MICROSCOPIC DESCRIP TION Slides are reviewed. MICROSCOPIC DIAGNOSIS A. Right and left fallopian tubes, bilateral partial salpingectomies: Two complete segments of fallopian tubes with no pathologic change. B. Endometrium, curettings: Adenomyosis. Granulomatous inflammation, negative for acid fast bacilli and fungal organisms. Weakly proliferative endometrium. C. Endocervix, curetti ngs: Strips of benign superficial endocervix and ectocervix. Fragments of superficial myometrium with chronic endometritis and adenomyosis. AM: 08/06/15 Signed Robert [facility] 08/06/15 <signature on file> 68-Rya-03683:10 ,Urine Comments: [facility] [address] [place], [address] HCGUQUAL Negative {Negative} (Normal) Comments: Very dilute urine specimens, as indicated by a low specificgravity, may not contain strategic partnership representative levels of hCG.If is still suspected, a first morning urinespecimen should be collected 48 hours later and tested. 64-Vsh-422162:21 Celiac Disease Profile Comments: [facility] (refer to report for specific site)refer to report for address and phone number ENDOMYSIAL IGA Negative (Normal) tTG IGA <2 U/mL (Normal) Range: 0-3 Comments: Negative 0 - 3 Weak Positive 4 - 10 Positive >10 Tissue Transglutaminase (tTG) has been identified as the endomysial anti gen. Studies have demonstr- ated that endomysial IgA antibodies have over 99% specificity for gluten sensitive enteropathy. IMMUNO A 1784 213 mg/dL (Normal) Range: 91-414 Comments: Performed at: [address] [id number] Director: Dyllan Reyes PhD, Phone: [phone] [id number]-Xoi-[id number]:21 CRP Comments: [facility] [address] [place], [address] C-REACTIVE PROT < 2.90 mg/L (Normal) Range: 0.0-3.0 Comments: C-Reactive Protein (CRP) provides useful information for thediagnosis, therapy and monitoring of inflammatory processesand associated diseases. For the evaluation of Relative Riskfor Cardiovascular Dise ase, a High Sensitivity CRP (HSCRP)should be ordered. :39 CBC-Complete Blood Cnt No Diff Comments: [facility] [address] [place], [id number] MPV 9.9 fL (Normal) Range: 6.2-12.0 PLT 220 K/mm3 (Normal) Range: 150-450 RDW SD 46.4 fL (Abnormal) Range: 35.1-43.9 RDW CV 13.3 % (Normal) Range: 11.6-14.6 MCHC 33.3 {g/gl} (Normal) Range: 32-36 MCH 31.8 pg (Normal) Range: 27.0-32.0 MCV 95.7 fL (Normal) Range: 81-99 HCT 41.8 % (Normal) Range: 37-47 HGB 13.9 g/dL (Normal) Range: 12.0-15.0 RBC 4.37 {M/mm3} (Normal) Range: 4.2-5.4 WBC 9.4 K/mm3 (Normal) Range: 4.4-11.0 :39 Partial Thromboplast Time Comments: [facility] [address] [place], [place], [phone] PTT 32.8 s (Normal) Range: 24.1-36.2 :39 ,Serum,hCG Quali. Comments: [facility] [address] [place], [address] HCGSQUAL NEGATIVE {Negative} (Normal) Range: 0-9 Nonpreg HCG Qual triggr < 1 m[iU]/mL (Normal) :39 Prothrombin Time w/INR Comments: [facility] [address] [place], [address] INR 1.0 (Normal) PROTIME 13.6 s (Normal) Range: 11.7-14.9 :39 Serum Creatinine AND GFR Comments: [facility] [address] [place], [place], [id number] EST GFR - AA 95 mL/min (Normal) Comments: GFR Calc EST GFR 79 mL/min (Normal) Comments: Non- GFR Calc CREAT,SERUM 0.85 mg/dL (Normal) Range: 0.55-1.20 Comments: The validity of the calculated GFR AND GFRAA in patients over70 years has not been determined. Clinical correlation isessential. :39 Type AND Screen Comments: Surgery Date: 08/05/15Hx of Preganancy in last 3 Months NoEver experience any problems with transfusion(s)? NHx of Transfusion in last 3 Months NReason for Type AND Screen/Red Cells: SURGERYSURGI GRACY PROCEDURE: [facility] [address] [place], [place], [id number] Antibody Screen NEGATIVE (Normal) BLOOD TYPE GEL A POSITIVE (Normal) 54-Nyf-792434:50 OVA & PARASITE DIR SMEAR Comments: PATIENT NOT FASTINGPERFORMED BY: [facility] [id number] ([id number]) Result 1 NOCP (Normal) Comments: No ova, cysts, or parasites seen. Ova + Parasite Exam Final report (Normal) Comments: These results were obtained using wet preparation(s) and trichromestained smear. This test does not include testing for Cryptosporidiumparvum, Cyclospora, or Microsporidia. :34 OCCULT BLOOD FECES SCREEN (76458) OCCULT BLOOD FECES SCREEN negative (Normal) 31-Hbg-461725:50 LEUKOCYTE COUNT, FECAL Comments: PATIENT NOT FASTINGPERFORMED BY: [facility] [id number] ([id number]) Result 1 NWBC (Normal) Comments: No white blood cells seen. White Blood Cells (WBC), Final report (Normal) Stool 87-Ppv-965630:56 C-DIFFICILE, STOOL (97396) Comments: PATIENT NOT FASTINGPERFORMED BY: CB [facility] Pkyirq0143 [facility] [id number] Information: [id number] C difficile Toxins A+B, EIA Negative (Normal) :50 VERNA CULTURE-STOOL (58271) Comments: PATIENT NOT FASTINGPERFORMED BY: [facility] Maspwd3594 [facility] [id number] Information: SRC:STL [id number] E coli Shiga Toxin EIA Negative (Normal) Result 1 NCI (Normal) Comments: No Campylobacter species isolated. Campylobacter Culture Final report (Normal) Result 1 NSS (Normal) Comments: No Salmonella or Shigella recovered. Salmonella/Shigella Screen Final report (Normal) :35 C-Reactive Protein (52264) Comments: PATIENT NOT FASTINGPERFORMED BY: [facility] Izznbp9823 [facility] [id number] C-Reactive Protein, Quant 0.9 mg/L (Normal) Range: 0.0-4.9 :35 Sed Rate Erythrocyte (84250) Comments: PATIENT NOT FASTINGPERFORMED BY: [facility] Kjitxj2665 [facility] [id number] Sedimentation Rate-Westergren 3 mm/h (Normal) Range: 0-32 :35 CBC (Auto) (06759) Comments: PATIENT NOT FASTINGPERFORMED BY: [facility] Bugsth1747 [facility] [id number] Platelets 224 {x10E3/uL} (Normal) Range: 150-379 RDW 13.3 % (Normal) Range: 12.3-15.4 MCHC 32.6 g/dL (Normal) Range: 31.5-35.7 MCH 31.1 pg (Normal) Range: 26.6-33.0 MCV 95 fL (Normal) Range: 79-97 Hematocrit 41.7 % (Normal) Range: 34.0-46.6 Hemoglobin 13.6 g/dL (Normal) Range: 11.1-15.9 RBC 4.37 {x10E6/uL} (Normal) Range: 3.77-5.28 WBC 7.0 {x10E3/uL} (Normal) Range: 3.4-10.8 :35 Metabolic Panel, Comments: PATIENT NOT FASTINGPERFORMED BY: [facility] Givysf2854 Ginny WeaverFormerly [facility] Hospital[facility] [place] [id number] Information: [id number] Comprehensive (49881) ALT (SGPT) 20 [iU]/L (Normal) Range: 0-32 AST (SGOT) 22 [iU]/L (Normal) Range: 0-40 Alkaline Phosphatase, S 45 [iU]/L (Normal) Range: 39-117 Bilirubin, Total 0.9 mg/dL (Normal) Range: 0.0-1.2 A/G Ratio 1.9 (Normal) Range: 1.1-2.5 Globulin, Total 2.1 g/dL (Normal) Range: 1.5-4.5 Albumin, Serum 4.0 g/dL (Normal) Range: 3.5-5.5 Protein, Total, Serum 6.1 g/dL (Normal) Range: 6.0-8.5 Calcium, Serum 8.7 mg/dL (Normal) Range: 8.7-10.2 Carbon Dioxide, Total 23 mmol/L (Normal) Range: 18-29 Chloride, Serum 105 mmol/L (Normal) Range: 97-108 Potassium, Serum 4.2 mmol/L (Normal) Range: 3.5-5.2 Sodium, Serum 144 mmol/L (Normal) Range: 134-144 BUN/Creatinine Ratio 15 (Normal) Range: 9-23 eGFR If Africn Am 105 mL/min/1.73 (Normal) eGFR If NonAfricn Am 91 mL/min/1.73 (Normal) Creatinine, Serum 0.81 mg/dL (Normal) Range: 0.57-1.00 BUN 12 mg/dL (Normal) Range: 6-24 Glucose, Serum 73 mg/dL (Normal) Range: 65-99 72-Vkz-795449:58 Culture, Wound Comments: Test performed at:[facility] [address] [place], [place] [address] CUW See Note (Normal) Comments: NO COLLECTION TIME NOTED ON SWAB Results faxed on 05/13/15114 by NOREEN .Comments: RIGHT AXILLAGram StainGram Stain 3+ Red Blood Cells No organisms seen No White Blood Cells Wound CultureCopy of report sent to Infection Control Printer MS#[id number] 05/12/15 6532 KIMBERYL. RESULTS FAXED TO DR VERNON 05/12/15 49[address]. ORGANISM 1: Meth. resistant Staph. aureusAmount Growth 1+ Meth. resistant Staph. aureus: REACTION Benzylpenicillin NF >=0.5 R Cefoxitin *NF + Clindamycin $$ >=8 R Inducable Clindamycin Resistan - Erythromycin $ >=8 R Gentamicin $ <=0.5 S Lev ofloxacin $ 0.25 S Linezolid $$$$ 2 S Oxacillin NF >=4 R Tigecycline $$$$ <=0.12 S Rifampin $$ <=0.5 S Tetracycline NF <=1 S Trimethoprim/Sulfametho $ <=10 S Vancomycin $ 2 S(NF) indicates non-formulary drug at [facility]. Approval by Infectious Disease Specialist required before non-formulary drugs may be ordered and/or di spensed. * CLSI guidelines does not recommend testing of cephalosporins. This interpretation is deduced from Beta-lactam/penicillin results.; ADDENDA: handled by another 12-Zfl-147126:20 ANTINUCLEAR ANTIBODIES DIRECT Comments: Test performed at:[facility] [address] [place] [address] FELICITA-DIRECT Negative (Normal) Comments: Performed at: [facility] [address] [id number] Director: Dyllan Reyes PhD, Phone: [phone]; ADDENDA: handled by lucia 23-Jkf-776772:20 CBC W/Diff, Automated Comments: Test performed at:[facility] [address] [place] [address] ; Ordered by another doctor Absolute Lymph 1.74 {X10_3/ul} (Normal) Range: 0.83-4.51 Absolute Neut 4.7 {X10_3/uL} (Normal) Range: 2.0-7.7 IM GRAN % 0.100 % (Normal) Range: 0.0-0.9 Comments: IG% - Immature Granulocytes (promyelocytes, myelocytes andmetamyelocytes) > 1% indicates that a LEFT SHIFT is Present. BASO% 0.5 % (Normal) Range: 0-1 EO% 4.8 % (Normal) Range: 0-5 MONO% 11.7 % (Abnormal) Range: 0-10 LY% 22.4 % (Normal) Range: 19-41 NEUT% 60.5 % (Normal) Range: 47-70 MPV 10.7 fL (Normal) Range: 6.2-12.0 PLT 187 K/mm3 (Normal) Range: 150-450 RDW SD 44.1 fL (Abnormal) Range: 35.1-43.9 RDW CV 13.1 % (Normal) Range: 11.6-14.6 MCHC 34.7 {g/gl} (Normal) Range: 32-36 MCH 33.1 pg (Abnormal) Range: 27.0-32.0 MCV 95.5 fL (Normal) Range: 81-99 HCT 40.4 % (Normal) Range: 37-47 HGB 14.0 g/dL (Normal) Range: 12.0-15.0 RBC 4.23 {M/mm3} (Normal) Range: 4.2-5.4 WBC 7.8 K/mm3 (Normal) Range: 4.4-11.0 60-Cfl-636657:20 Comprehensive Metabolic Profil Comments: Test performed at:[facility] [address] [place] [address] GAP 6 (Normal) Range: 5-15 CO2 27.0 mmol/L (Normal) Range: 21.0-32.0 CL 105 mmol/L (Normal) Range: 98-107 K 3.5 mmol/L (Normal) Range: 3.5-5.1 NA 138 mmol/L (Normal) Range: 136-145 T BILI 0.50 mg/dL (Normal) Range: 0.20-1.00 ALT 25 U/L (Normal) Range: 12-78 ALK P 56 U/L (Normal) Range: 50-136 AST 18 U/L (Normal) Range: 15-37 CA 8.4 mg/dL (Abnormal) Range: 8.5-10.1 A/G 1.4 {RATIO} (Normal) Range: 0.9-2.4 GLOB 2.9 g/dL (Normal) Range: 2.3-3.5 ALB 4.0 g/dL (Normal) Range: 3.4-5.0 T PROT 6.9 g/dL (Normal) Range: 6.4-8.2 BUN/CRE 17.9 {RATIO} (Normal) Range: 10-20 EST GFR - AA 84 mL/min (Normal) EST GFR 69 mL/min (Normal) CREAT,SERUM 0.95 mg/dL (Normal) Range: 0.55-1.20 Comments: Please note revised CREATININE reference range kypfdxmno27/22/2015. BUN 17 mg/dL (Normal) Range: 7-18 GLU 84 mg/dL (Normal) Range: 70-110 17-Dvv-924328:20 Hepatitis ABC Profile Comments: Test performed at:[facility] [address] [place] [address] COMMENT Comment (Normal) Comments: Non reactive HCV antibody screen is consistent with no HCVinfection, unless recent infection is suspected or otherevidence exists to indicate HCV infection. HCV Ab 0.1 {s/co_ratio} (Normal) Range: 0.0-0.9 Hep B Kaylyn AB Reactive (Normal) Comments: Non Reactive: Inconsistent with immunity, less than 10 mIU/mL Reactive: Consistent with immunity, greater than 9.9 mIU/mL HEP B CORE,TOT Negative (Normal) HB CORE [id number] Negative (Normal) HB SURF AG Negative (Normal) HEP A AB,T.6726 Negative (Normal) HEP A IgM 6734 Negative (Normal) 65-Cpx-943766:20 HIV Test W/Confirmation Comments: Test performed at:[facility] Rxwiogdrvv3227 [facility] [place] [address] HIV1/0/2Ab Qual Non Reactive (Normal) HIV Ab INDEX V < 1.00 (Normal) Comments: Index Value: Specimen reactivity relative to the negativecutoff. 89-Fkg-625882:20 Quantiferon TB-Gold Comments: Test performed at:[facility] [address]jfrvx[address] [facility] [address] QFT TB INTER Comment (Normal) Comments: The QuantiFERON TB Gold (in Tube) assay is intended for useas an aid in the diagnosis of TB infection. Negativeresults suggest that there is no TB infection. In patientswith high suspicion of exposure, a negative test should berepeated. A positive test indicates infection withMycobacterium tuberculosis. Among individuals withouttuberculosis infection, a positive test may be due toexposure to M. k[place] ii, M. szulgai or M. marinum. On theInternet, go to cdc.gov/tb for further details. QFT AG - NIL 0.01 {IU/mL} (Normal) QFT MITOGEN JUAN A > 10.00 {IU/mL} (Normal) QFT NIL VALUE 0.03 {IU/mL} (Normal) QFT TB AB VALUE 0.04 {IU/mL} (Normal) QFT TB POS CRIT Comment (Normal) Comments: To be considered positive a specimen should have a TB Agminus Nil value greater than or equal to 0.35 IU/mL and inaddition the TB Ag minus Nil value must be greater than orequal to 25% of the Nil value. There may be insufficientinformation in these values to differentiate between somenegative and some indeterminate test values. QFT TB GOLD Negative (Normal) Comments: The specimen received for QuantiFERON testing was incubatedby the ordering institution. Specific procedures outlinedin our Directory of Services and in the package insert forthe QuantiFERON Gold (In Tu be) test must be followed toenable for proper stimulation of cells for the productionof interferon gamma. 67-Hap-380941:20 URINE HISTOPLASMA ANTIGEN Comments: Test performed at:[facility] [address] [place] [address] UR HISTO AG 1.24 EU (Normal) Comments: Reference RangeNegative 0.00 - 3.50Equivocal 3.51 - 4.50Positive >4.50Repeat testing is suggested if result does not supportclinical presentation of equiv ocal or p ositive patients.The performance characteristics of the listed assay wasvalidated by [employer]. The [place] FDA has notapproved or cleared this test. The results of these assaycan be used for clinical diagnosis without FDA approval.[facility] is a CLIA certified, CAP accreditedlaboratory for performing high complexity assays such asthis one.Performed at: [facility] [address] [place], [place] [id number] Director: Dyllan Reyes PhD, Phone: [phone] at: E= - [facility] [address] [place], [place] [id number] Director: Steve Schuster PhD, Phone: [phone] 99-Fik-546130:31 Magnesium (80697) Comments: PATIENT NOT FASTINGPERFORMED BY: [facility]6370 [facility] [id number] Magnesium, Serum 2.0 mg/dL (Normal) Range: 1.6-2.6 :31 Vitamin D Hydroxy (28063) Comments: PATIENT NOT FASTINGPERFORMED BY: [facility]6370 [facility] [id number] Vitamin D, 25-Hydroxy 66.3 ng/mL (Normal) Range: 30.0-100.0 Comments: Vitamin D deficiency has been defined by the [place] ofMedicine and an Endocrine Society practice guideline as alevel of serum 25-OH vitamin D less than 20 ng/mL (1,2).The Endocrine Society went on to further define vitamin Dinsufficiency as a level between 21 and 29 ng/mL (2).1. IOM ([place] of Medicine). 2010. Dietary reference intakes for calcium and D. [place]: The National Academies Press.2. Loulou MF, [place], Dorina GOLDSMITH, et al. Evaluation, treatment, and prevention of vitamin D deficiency: an Endocrine Society clinical practice guideline. JCEM. 2010; 96(7):1911-30. 16-Guf-469840:31 METABOLIC PANEL, Comments: PATIENT NOT FASTINGPERFORMED BY: [facility]6370 [facility] [id number] Information: [id number] COMPREHENSIVE (52256) ALT (SGPT) 16 [iU]/L (Normal) Range: 0-32 AST (SGOT) 26 [iU]/L (Normal) Range: 0-40 Alkaline Phosphatase, S 53 [iU]/L (Normal) Range: 39-117 Bilirubin, Total 0.9 mg/dL (Normal) Range: 0.0-1.2 A/G Ratio 2.1 (Normal) Range: 1.1-2.5 Globulin, Total 2.1 g/dL (Normal) Range: 1.5-4.5 Albumin, Serum 4.4 g/dL (Normal) Range: 3.5-5.5 Protein, Total, Serum 6.5 g/dL (Normal) Range: 6.0-8.5 Calcium, Serum 9.5 mg/dL (Normal) Range: 8.7-10.2 Carbon Dioxide, Total 23 mmol/L (Normal) Range: 18-29 Chloride, Serum 103 mmol/L (Normal) Range: 97-108 Potassium, Serum 4.1 mmol/L (Normal) Range: 3.5-5.2 Sodium, Serum 141 mmol/L (Normal) Range: 134-144 BUN/Creatinine Ratio 12 (Normal) Range: 9-23 eGFR If Africn Am 99 mL/min/1.73 (Normal) eGFR If NonAfricn Am 86 mL/min/1.73 (Normal) Creatinine, Serum 0.85 mg/dL (Normal) Range: 0.57-1.00 BUN 10 mg/dL (Normal) Range: 6-24 Glucose, Serum 76 mg/dL (Normal) Range: 65-99 15-Vom-400813:11 URINE VERNA CULTURE-KITTY COL Comments: PATIENT NOT FASTINGPERFORMED BY: [facility] Hdqhfz8761 [facility] [id number] Information: SRC:URC [id number] COUNT (86915) Result 1 MUG (Normal) Comments: Mixed urogenital floraGreater than 100,000 colony forming units per mL Urine Culture,Comprehensive Final report (Normal) 53-Iqu-242047:47 Urinalysis, Office (37280) UA - LEUKOCYTE ESTERASE Negative (Normal) UA - NITRITE Negative (Normal) URINE UROBILINGN KITTY TIMED Normal mg/dL (Normal) UA - PROTEIN Negative mg/dL (Normal) UA - PH 7.0 (Normal) UA - BLOOD Hemolyzed Trace (Normal) UA - SPECIFIC GRAVITY 1.020 (Normal) UA - KETONES Negative mg/dL (Normal) UA - BILIRUBIN Negative (Normal) UA - GLUCOSE Negative (Normal) 22-Oct-20148:36 C-REACTIVE PROTEIN (67566) Comments: PATIENT NOT FASTINGPERFORMED BY: [facility] CenterGnhtzy5335 [facility] [id number] C-Reactive Protein, Quant 0.8 mg/L (Normal) Range: 0.0-4.9 :36 METABOLIC PANEL, Comments: PATIENT NOT FASTINGPERFORMED BY: [facility]Co[facility] CenterCurura4711 [facility] [id number] Information: [id number] COMPREHENSIVE (70124) ALT (SGPT) 29 [iU]/L (Normal) Range: 0-32 AST (SGOT) 20 [iU]/L (Normal) Range: 0-40 Alkaline Phosphatase, S 59 [iU]/L (Normal) Range: 39-117 Bilirubin, Total 0.5 mg/dL (Normal) Range: 0.0-1.2 A/G Ratio 1.8 (Normal) Range: 1.1-2.5 Globulin, Total 2.5 g/dL (Normal) Range: 1.5-4.5 Albumin, Serum 4.4 g/dL (Normal) Range: 3.5-5.5 Protein, Total, Serum 6.9 g/dL (Normal) Range: 6.0-8.5 Calcium, Serum 9.0 mg/dL (Normal) Range: 8.7-10.2 Carbon Dioxide, Total 24 mmol/L (Normal) Range: 18-29 Chloride, Serum 102 mmol/L (Normal) Range: 97-108 Potassium, Serum 4.0 mmol/L (Normal) Range: 3.5-5.2 Sodium, Serum 142 mmol/L (Normal) Range: 134-144 BUN/Creatinine Ratio 13 (Normal) Range: 9-23 eGFR If Africn Am 77 mL/min/1.73 (Normal) eGFR If NonAfricn Am 67 mL/min/1.73 (Normal) Creatinine, Serum 1.05 mg/dL (Abnormal) Range: 0.57-1.00 BUN 14 mg/dL (Normal) Range: 6-24 Glucose, Serum 122 mg/dL (Abnormal) Range: 65-99 :41 CBC W/Diff, Automated Comments: Test performed at:[facility] [address] [place] [address] Absolute Lymph 1.77 {X10_3/ul} (Normal) Range: 0.83-4.51 Absolute Neut 6.0 {X10_3/uL} (Normal) Range: 2.0-7.7 IM GRAN % 0.200 % (Normal) Range: 0.0-0.9 Comments: IG% - Immature Granulocytes (promyelocytes, myelocytes andmetamyelocytes) > 1% indicates that a LEFT SHIFT is Present. BASO% 0.3 % (Normal) Range: 0-1 EO% 3.0 % (Normal) Range: 0-5 MONO% 8.4 % (Normal) Range: 0-10 LY% 20.2 % (Normal) Range: 19-41 NEUT% 67.9 % (Normal) Range: 47-70 MPV 10.0 fL (Normal) Range: 6.2-12.0 PLT 243 K/mm3 (Normal) Range: 150-450 RDW SD 46.8 fL (Abnormal) Range: 35.1-43.9 RDW CV 13.5 % (Normal) Range: 11.6-14.6 MCHC 33.4 {g/gl} (Normal) Range: 32-36 MCH 31.8 pg (Normal) Range: 27.0-32.0 MCV 95.2 fL (Normal) Range: 81-99 HCT 39.8 % (Normal) Range: 37-47 HGB 13.3 g/dL (Normal) Range: 12.0-15.0 RBC 4.18 {M/mm3} (Abnormal) Range: 4.2-5.4 WBC 8.8 K/mm3 (Normal) Range: 4.4-11.0 19-Oct-20148:41 Comprehensive Metabolic Profil Comments: Test performed at:[facility] [address] [place] [address] GAP 5 (Normal) Range: 5-15 CO2 30.0 mmol/L (Normal) Range: 21.0-32.0 CL 104 mmol/L (Normal) Range: 98-107 K 3.6 mmol/L (Normal) Range: 3.5-5.1 NA 139 mmol/L (Normal) Range: 136-145 T BILI 0.60 mg/dL (Normal) Range: 0.00-4.00 ALT 28 U/L (Normal) Range: 12-78 ALK P 69 U/L (Normal) Range: 50-136 AST 11 U/L (Abnormal) Range: 15-37 CA 8.6 mg/dL (Normal) Range: 8.5-10.1 A/G 1.5 {RATIO} (Normal) Range: 0.9-2.4 GLOB 2.4 g/dL (Abnormal) Range: 2.7-4.2 ALB 3.5 g/dL (Normal) Range: 3.4-5.0 T PROT 5.9 g/dL (Abnormal) Range: 6.4-8.2 BUN/CRE 12.5 {RATIO} (Normal) Range: 10-20 EST GFR - AA 102 mL/min (Normal) EST GFR 84 mL/min (Normal) CREAT,SERUM 0.8 mg/dL (Normal) Range: 0.6-1.0 BUN 10 mg/dL (Normal) Range: 7-18 GLU 79 mg/dL (Normal) Range: 70-110 :41 CRP Comments: Test performed at:[facility] [address]lf[address]1999 [facility] [address] C-REACTIVE PROT 45.50 mg/L (Abnormal) Range: 0.0-3.0 Comments: C-Reactive Protein (CRP) provides useful information for thediagnosis, therapy and monitoring of inflammatory processesand associated diseases. For the evaluation of Relative Riskfor Cardiovascular Dise ase, a High Sensitivity CRP (HSCRP)should be ordered. :45 CBC W/Diff, Automated Comments: Test performed at:[facility] [address]24[address] [facility] [address] Absolute Lymph 1.56 {X10_3/ul} (Normal) Range: 0.83-4.51 Absolute Neut 18.6 {X10_3/uL} (Abnormal) Range: 2.0-7.7 IM GRAN % 0.300 % (Normal) Range: 0.0-0.9 Comments: IG% - Immature Granulocytes (promyelocytes, myelocytes andmetamyelocytes) > 1% indicates that a LEFT SHIFT is Present. BASO% 0.1 % (Normal) Range: 0-1 EO% 1.0 % (Normal) Range: 0-5 MONO% 6.8 % (Normal) Range: 0-10 LY% 7.1 % (Abnormal) Range: 19-41 NEUT% 84.7 % (Abnormal) Range: 47-70 MPV 10.3 fL (Normal) Range: 6.2-12.0 PLT 240 K/mm3 (Normal) Range: 150-450 RDW SD 47.4 fL (Abnormal) Range: 35.1-43.9 RDW CV 13.6 % (Normal) Range: 11.6-14.6 MCHC 33.3 {g/gl} (Normal) Range: 32-36 MCH 31.8 pg (Normal) Range: 27.0-32.0 MCV 95.5 fL (Normal) Range: 81-99 HCT 40.3 % (Normal) Range: 37-47 HGB 13.4 g/dL (Normal) Range: 12.0-15.0 RBC 4.22 {M/mm3} (Normal) Range: 4.2-5.4 WBC 22.0 K/mm3 (Abnormal) Range: 4.4-11.0 2-Atd-495550:45 CDIFF (Molecular) Comments: Test performed at:[facility] [address] [place] [address] CDIFF See Note (Normal) Comments: Cdiff-MolecularRESULTS CALLED TO DR. CARLOS 10/17/141 Sabine Henning. REPORT READ BACK BY SAME. C. Diff DNA Positive-Toxigenic C. Difficile DNA Detected 5-Olk-485773:45 Comprehensive Metabolic Profil Comments: Test performed at:[facility] [address] [place] [address] GAP 5 (Normal) Range: 5-15 CO2 27.0 mmol/L (Normal) Range: 21.0-32.0 CL 107 mmol/L (Normal) Range: 98-107 K 3.5 mmol/L (Normal) Range: 3.5-5.1 NA 139 mmol/L (Normal) Range: 136-145 T BILI 0.50 mg/dL (Normal) Range: 0.00-4.00 ALT 36 U/L (Normal) Range: 12-78 ALK P 89 U/L (Normal) Range: 50-136 AST 21 U/L (Normal) Range: 15-37 CA 8.4 mg/dL (Abnormal) Range: 8.5-10.1 A/G 1.2 {RATIO} (Normal) Range: 0.9-2.4 GLOB 2.9 g/dL (Normal) Range: 2.7-4.2 ALB 3.6 g/dL (Normal) Range: 3.4-5.0 T PROT 6.5 g/dL (Normal) Range: 6.4-8.2 BUN/CRE 16.0 {RATIO} (Normal) Range: 10-20 EST GFR - AA 79 mL/min (Normal) EST GFR 65 mL/min (Normal) CREAT,SERUM 1.0 mg/dL (Normal) Range: 0.6-1.0 BUN 16 mg/dL (Normal) Range: 7-18 GLU 92 mg/dL (Normal) Range: 70-110 :45 CRP Comments: Test performed at:[facility] [address] [place] [address] C-REACTIVE PROT 142.00 mg/L (Abnormal) Range: 0.0-3.0 Comments: C-Reactive Protein (CRP) provides useful information for thediagnosis, therapy and monitoring of inflammatory processesand associated diseases. For the evaluation of Relative Riskfor Cardiovascular Dise ase, a High Sensitivity CRP (HSCRP)should be ordered. :45 Culture, Stool w/ Shiga Toxin Comments: Test performed at:[facility] [address] [place] [address] CUST See Note (Normal) Comments: Stool CultureNo Salmonella, Shigella, Yersinia or Campylobacter isolated. No significant amount of Staphylococcus aureus or yeast-like organisms isolated. Shiga ToxinShiga-Toxin 1 AND 2 Shiga Toxin 1 and ShigaToxin 2 NOT Detected :45 Erythrocyte Sed Rate Comments: Test performed at:[facility] [address] [place] [address] SED RATE 23 mm/h (Abnormal) Range: 0-20 :45 hCG Titer Quant., Serum Comments: Test performed at:[facility] [address] [place] [address] HCG QUANT. < 1 m[iU]/mL (Normal) 1-Btq-189632:45 Ova and Parasites Comments: Test performed at:[facility] [address] [facility] [address] [place] [address] OP See Note Comments: O + POVA AND PARASITES EXAM, ROUTINE These results were obtained using wet preparation(s) and trichrome stained smear. This test does not include testing for Crytosporidium parvum, Cyclos (Normal) pora, or Microsporidia. TESTING PERFORMED AT [facility]. ORIGINAL REPORT ON FILE IN LAB CONTAINS ADDITIONAL TEST SITE INFORMATION. Ova/Parasite Exam NO OVA, CYSTS, OR PARASITES FOUND. [id number] Stool Lactoferrin/WBC Comments: Test performed at:[facility] [id number] [facility] [address] WBCST See Note (Normal) Comments: Stool Lacto/WBCFecal WBC Lactoferrin Positive: Fecal WBC Lactoferrin present 18-Oct-20147:42 NuSwab Vaginitis Plus (STD Comments: PATIENT NOT FASTINGPERFORMED BY: [address] [id number] Information: [id number] W/O Herpes) (34787) Neisseria gonorrhoeae, [place] Negative (Normal) Chlamydia trachomatis, [place] Negative (Normal) Trich vag by [place] Negative (Normal) Carmela glabrata, [place] Negative (Normal) Comments: This test was developed and its performance characteristics [facility]by [facility]. It has not been cleared or approved by the Food and DrugAdministration. The FDA has determined that such clearance orapproval is not necessary. Carmela albicans, [place] Positive (Abnormal) Megasphaera 1 Low - 0 {Score} (Normal) Comments: Calculate total score by adding the 3 individual bacterial vaginosis(BV) marker scores together. Total score is interpreted as follows: .Total score 0-1: Indicates the absence of BV.Total score 2: Indeterminate for BV. Additional clinical data should be evaluated to establish a diagnosis.Total score 3-6: Indicates th e presence of BV. .This test was developed and its performance characteristics determinedby [employer]. It has not been cleared or appro cinda by the Food and DrugAdministration. The FDA has determined that such clearance orapproval is not necessary. BVAB 2 Low - 0 {Score} (Normal) Atopobium vaginae Low - 0 {Score} (Normal) 5-Ltm-043030:39 URINE VERNA CULTURE-IDENTIFICATN Comments: PATIENT NOT FASTINGPERFORMED BY: [employer] CenterLjxwlv6968 [facility] [id number] Information: [id number] (16632) Result 1 MUG (Normal) Comments: Mixed urogenital flora50,000-100,000 colony forming units per mL Urine Final report (Normal) Culture,Comprehensive 20-Jul-20149:28 Urinalysis, Office (21328) UA - LEUKOCYTE ESTERASE Negative (Normal) UA - NITRITE Negative (Normal) URINE UROBILINGN KITTY TIMED 2 mg/dL (Normal) UA - PROTEIN Negative mg/dL (Normal) UA - PH 7.0 (Normal) UA - BLOOD Hemolyzed Small (Normal) UA - SPECIFIC GRAVITY 1.025 (Normal) UA - KETONES Negative mg/dL (Normal) UA - BILIRUBIN Negative (Normal) UA - GLUCOSE Negative (Normal) 4-Ubk-460328:09 HELICO PYLORI, STOOL, Comments: PATIENT NOT FASTINGPERFORMED BY: [address] [id number] Information: [id number] INFCT ANTIGEN (75567) H. pylori Stool Ag, EIA Negative (Normal) 20-Jul-20149:43 HELICOBACTER PYLORI ANTIBODY Comments: PATIENT WAS FASTINGPERFORMED BY: [employer] CenterPxdbjw1775 [facility] [id number] (89181) H. pylori, IgG Abs <0.9 U/mL (Normal) Range: 0.0-0.8 Comments: Negative <0.9 Indeterminate 0.9 - 1.0 Positive >1.0 :43 LIPID PANEL (45663) Comments: PATIENT WAS FASTINGPERFORMED BY: [facility]6370 [facility] [id number] LDL/HDL Ratio 2.2 {ratio_units} (Normal) Range: 0.0-3.2 Comments: LDL/HDL Ratio Men Women 1/2 Avg.Risk 1.0 1.5 Av g.Risk 3.6 3.2 2X Avg.Risk 6.2 5.0 3X Avg.Risk 8.0 6.1 LDL Cholesterol Calc 93 mg/dL (Normal) Range: 0-99 VLDL Cholesterol Gracy 12 mg/dL (Normal) Range: 5-40 HDL Cholesterol 43 mg/dL (Normal) Comments: According to ATP-III Guidelines, HDL-C >59 mg/dL is considered anegative risk factor for CHD. Triglycerides 58 mg/dL (Normal) Range: 0-149 Cholesterol, Total 148 mg/dL (Normal) Range: 100-199 :43 CALCIFIDIOL (21743) VIT D 25 Comments: PATIENT WAS FASTINGPERFORMED BY: [facility]6370 [facility] [id number] Vitamin D, 25-Hydroxy 33.1 ng/mL (Normal) Range: 30.0-100.0 Comments: Vitamin D deficiency has been defined by the [place] of[place] and an Endocrine Society practice guideline as alevel of serum 25-OH vitamin D less than 20 ng/mL (1,2).The Endocrine Society went on to further define vitamin Dinsufficiency as a level between 21 and 29 ng/mL (2).1. IOM ([place] of [employer]). 2010. Dietary reference intakes for calcium and D. [place]: The National Academies Press.2. Loulou MAYS, Carmel MANCUSO, Dorina GOLDSMITH, et al. Evaluation, treatment, and prevention of vitamin D deficiency: an Endocrine Society clinical practice guideline. JCEM. 2010; 96(7):1911-30. :43 Folate (57908) Comments: PATIENT WAS FASTINGPERFORMED BY: [facility] Ihsrkp14[address] Gross RoadDublin [place] [id number] Folate (Folic Acid), Serum 10.9 ng/mL (Normal) Comments: A serum folate concentration of less than 3.1 ng/mL isconsidered to represent clinical deficiency. :43 VITAMIN B-12 (CYANOCOBALAMIN) Comments: PATIENT WAS FASTINGPERFORMED BY: [facility] Zfeqef1626 Gross RoadDublin [place] [id number] (68831) Vitamin B12 636 pg/mL (Normal) Range: 211-946 :43 TSH (53684) Comments: PATIENT WAS FASTINGPERFORMED BY: [facility] Fadahi73[address] RoadDublin [place] [id number] TSH 2.430 {uIU/mL} (Normal) Range: 0.450-4.500 :43 SED RATE ERYTHROCYTE (13565) Comments: PATIENT WAS FASTINGPERFORMED BY: [facility] Zwtmhk1692 [address] RoadDublin [place] [id number] Sedimentation Rate-Westergren 2 mm/h (Normal) Range: 0-32 :43 RHEUMATOID FACTOR-QUANT (48907) Comments: PATIENT WAS FASTINGPERFORMED BY: [facility] Pdlzhx9398 [address] RoadDublin [place] [id number] RA Latex Turbid. 9.1 {IU/mL} (Normal) Range: 0.0-13.9 :43 METABOLIC PANEL, Comments: PATIENT WAS FASTINGPERFORMED BY: [facility] Jbwrut6[address] Roadblin [place] [id number] Information: [id number] COMPREHENSIVE (64977) ALT (SGPT) 16 [iU]/L (Normal) Range: 0-32 AST (SGOT) 20 [iU]/L (Normal) Range: 0-40 Alkaline Phosphatase, S 54 [iU]/L (Normal) Range: 39-117 Bilirubin, Total 0.8 mg/dL (Normal) Range: 0.0-1.2 A/G Ratio 2.6 (Abnormal) Range: 1.1-2.5 Globulin, Total 1.8 g/dL (Normal) Range: 1.5-4.5 Albumin, Serum 4.6 g/dL (Normal) Range: 3.5-5.5 Protein, Total, Serum 6.4 g/dL (Normal) Range: 6.0-8.5 Calcium, Serum 9.4 mg/dL (Normal) Range: 8.7-10.2 Carbon Dioxide, Total 23 mmol/L (Normal) Range: 18-29 Chloride, Serum 103 mmol/L (Normal) Range: 97-108 Potassium, Serum 4.2 mmol/L (Normal) Range: 3.5-5.2 Sodium, Serum 142 mmol/L (Normal) Range: 134-144 BUN/Creatinine Ratio 13 (Normal) Range: 8-20 eGFR If Africn Am 104 mL/min/1.73 (Normal) eGFR If NonAfricn Am 90 mL/min/1.73 (Normal) Creatinine, Serum 0.82 mg/dL (Normal) Range: 0.57-1.00 BUN 11 mg/dL (Normal) Range: 6-20 Glucose, Serum 69 mg/dL (Normal) Range: 65-99 :43 C-REACTIVE PROTEIN (00969) Comments: PATIENT WAS FASTINGPERFORMED BY: [employer] Zsubsa4248 [facility] [id number] C-Reactive Protein, Quant 1.7 mg/L (Normal) Range: 0.0-4.9 :43 CBC (AUTO) (67773) Comments: PATIENT WAS FASTINGPERFORMED BY: [employer] CenterZqymtg5385 [facility] [id number] Platelets 237 {x10E3/uL} (Normal) Range: 150-379 RDW 13.1 % (Normal) Range: 12.3-15.4 MCHC 33.3 g/dL (Normal) Range: 31.5-35.7 MCH 31.7 pg (Normal) Range: 26.6-33.0 MCV 95 fL (Normal) Range: 79-97 Hematocrit 41.7 % (Normal) Range: 34.0-46.6 Hemoglobin 13.9 g/dL (Normal) Range: 11.1-15.9 RBC 4.39 {x10E6/uL} (Normal) Range: 3.77-5.28 WBC 8.0 {x10E3/uL} (Normal) Range: 3.4-10.8 20-Jul-20149:43 FELICITA (ANTINUCLEAR ANTIBODY) Comments: PATIENT WAS FASTINGPERFORMED BY: [employer] Piqqual [facility] [id number] (83176) FELICITA Direct Negative (Normal) 35-Pec-99195:54 URINE VERNA CULTURE-IDENTIFICATN Comments: PATIENT NOT FASTINGPERFORMED BY: [employer] Ifmkhs5322 [facility] [id number] Information: SRC: URINE (93309) Result 1 NG36 (Normal) Comments: No growth in 36 - 48 hours. Urine Culture,Comprehensive Final report (Normal) :19 Urinalysis, Office (00364) UA - BILIRUBIN Small (Normal) UA - BLOOD Hemolyzed Moderate (Normal) UA - GLUCOSE Negative (Normal) UA - KETONES Small mg/dL (Normal) UA - LEUKOCYTE ESTERASE Negative (Normal) UA - NITRITE Negative (Normal) UA - PH 6.0 (Normal) UA - PROTEIN 30 mg/dL (Normal) UA - SPECIFIC GRAVITY 1.025 (Normal) URINE UROBILINGN KITTY TIMED Normal mg/dL (Normal) 5-Cxi-558703:39 URINE VERNA CULTURE-KITTY COL Comments: PATIENT NOT FASTINGPERFORMED BY: [employer] Ktvrvo5739 [facility] [id number] Information: SRC:UR [id number] COUNT (51939) Antimicrobial MIHEAD (Normal) Comments: S = Susceptible; I = Intermediate; R = Resistant P = Positive; N = Negative MICS are expressed in micrograms per mL Antibiotic RSLT#1 RSLT#2 Susceptibility RSLT#3 RSLT#4Amoxicillin/Clavulanic Acid SAmpicillin SCefazolin SCefepime SCeftriaxone SCefuroxime SCephalothin SCiprofloxacin SESBL NErtapenem SGentamicin SImipenem S Levofloxacin SNitrofurantoin SPiperacillin STetracycline STobramycin STrimethoprim/Sulfa S Result 1 Escherichia coli Comments: Greater than 100,000 colony forming units per mL (Normal) Urine Final report Culture,Comprehensive (Normal) :29 Urinalysis, Office (99429) UA - BILIRUBIN Negative (Normal) UA - BLOOD Hemolyzed Moderate (Normal) UA - GLUCOSE Negative (Normal) UA - KETONES Negative mg/dL (Normal) UA - LEUKOCYTE ESTERASE Small (Normal) UA - NITRITE Negative (Normal) UA - PH 7.0 (Normal) UA - PROTEIN Negative mg/dL (Normal) UA - SPECIFIC GRAVITY 1.015 (Normal) URINE UROBILINGN KITTY TIMED 2 mg/dL (Normal) :32 Urinalysis, Office (76825) UA - BILIRUBIN Negative (Normal) UA - BLOOD Hemolyzed Large (Normal) UA - GLUCOSE Negative (Normal) UA - KETONES Small mg/dL (Normal) UA - LEUKOCYTE ESTERASE Moderate (Normal) UA - NITRITE Positive (Normal) UA - PH 5.0 (Normal) Comments: 5.5 UA - PROTEIN 100 mg/dL (Normal) UA - SPECIFIC GRAVITY 1.025 (Normal) URINE UROBILINGN KITTY TIMED Normal mg/dL (Normal) :57 URINE VERNA CULTURE (KITTY Comments: PATIENT NOT FASTINGPERFORMED BY: [facility] Btqxse7530 [facility] [id number] Information: SRC:UR [id number] COL COUNT) (88742) Antimicrobial MIHEAD (Normal) Comments: S = Susceptible; I = Intermediate; R = Resistant P = Positive; N = Negative MICS are expressed in micrograms per mL Antibiotic RSLT#1 RSLT#2 Susceptibility RSLT#3 RSLT#4Amoxicillin/Clavulanic Acid SAmpicillin SCefazolin SCefepime SCeftriaxone SCefuroxime SCephalothin SCiprofloxacin SESBL NErtapenem SGentamicin SImipenem S Levofloxacin SNitrofurantoin SPiperacillin STetracycline STobramycin STrimethoprim/Sulfa S Result 1 Escherichia coli Comments: Greater than 100,000 colony forming units per mL (Normal) Urine Final report Culture,Comprehensive (Normal) :24 UPPER GI SERIES ONLY Radiology Report See Note Comments: CLINICAL HISTORY:Female, 36 years old. Upper abdominal pain. PROCEDURE: Air contrast upper GI. TECHNIQUE:The patient was placed upright and given barium by mouth the patient thenplaced prone and give (Normal) n additional swallows of barium by mouth. Findings: The esophagus is normal in course and caliber. There is nomassor ulceration, mass lesion, nor stricture. The stomach is normallydistensible. There is a small sliding type hiatal hernia. The gastricfolds are intact. The medial bulb and sweep are normal. Despite changeinpatient positioning, Valsalva maneuver, and the water siphon, nogastroesophag eal reflux was elicited. IMPRESSION:Small hiatal hernia. Otherwise normal exam. Signed:Joey Blackman M.D.July 06, 2012 at 9:21:03 AM [phone] Signed SREEDHAR/SREEDHAR If you are the referring physician and would like to consult with theradiologist who provided this interpretation, please contact Phoenix Cornell at . If this radiologist is unavailable,lilly laws directed to another radiologist to assist. If you are a patient with a question regarding this report, pleasecontactyour referring physician directly. Professional Interpretation Provided By: Lonny meza, Phone , These documents contain legally protected and confidential healthinformation intended only for the use of the individual or entity namedabove. If you are not t he intended recipient, you are hereby notifiedthatany disclosure, copying, distribution, or other use of these documents isstrictly prohibited. If you have received this information in error,pleasenotif y the sender immediately and arrange for the return or destructionofthese documents. Dictated on 07/06/12819 by Joey Blackman MDTranscribed on 07/06/12949 by ITS IMPORTSign by Alex Blackman MD on 07/06/12950 Sign by: Joey Blackman MD C difficile Toxins Negative Comments: PERFORMED BY: [place] [id number] [facility] [id number] BY: [address] [id number] 211:17 A+B, EIA (Normal) H. pylori Stool Negative Comments: PERFORMED BY: [address] [id number] BY: [address] [id number] 211:17 Ag, EIA (Normal) Occult Blood, Negative Comments: PERFORMED BY: [address] [id number] BY: [address] [id number] 211:17 Fecal, IA (Normal) 80-Cbf-999877:17 Ova + Parasite Exam Comments: PERFORMED BY: [address] [id number] BY: [address] [id number] Result 1 NOCP (Normal) Comments: No ova, cysts, or parasites seen. Ova + Parasite Exam Final report (Normal) Comments: These results were obtained using wet preparation(s) and trichromestained smear. This test does not include testing for Cryptosporidiumparvum, Cyclospora, or Microsporidia. 62-Lsv-497363:17 Stool Culture Comments: PERFORMED BY: [address] [id number] BY: [address] [id number] Information: SRC:ST E coli Shiga Toxin EIA Negative (Normal) Result 1 NCI (Normal) Comments: No Campylobacter species isolated. Campylobacter Culture Final report (Normal) Result 1 NSS (Normal) Comments: No Salmonella or Shigella recovered. Salmonella/Shigella Screen Final report (Normal) 16-Nmx-240789:17 White Blood Cells Comments: PERFORMED BY: [address] [id number] BY: [facility] Whjfhrnomn3876 [facility] [id number] (WBC), Stool Result 1 NWBC (Normal) Comments: No white blood cells seen. 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 LMP: Four years ago.Abdominalpain. TECHNIQUE: Transabdominal TECHNICAL QUALITY: Adequate. COMPARISO N: None. FINDINGS:The uterus is anteverted and is in a midline position. The uterusmeasures9.2 cm x 4.0 cm by 5.0 cm. Normal uterine cervix. The endometriummeasures 6.2 mm in thickness, and is hype rechoic. There is nodemonstratedendometrial mass. There is no demonstrated myometrial mass. I.U.D. -Yes The right ovary is visualized. The right ovary measures 3.2 cm x 2.2 cmby2.6 cm. There is no right ovarian cyst or ovarian mass. There is novisualized right adnexal mass or complex lesion. There is normal arterialand normal venous vascularity. The left ovary is visualized. The left ovary reilly sures 2.6 cm x 2.2 cm by2.0 cm. There is no left ovarian cyst or ovarian mass. There is novisualized left adnexal mass or complex lesion. There is normal arterialand normal venous vascularity. There is no fluid in the cul-de-sac. IMPRESSION:Normal female pelvis. Signed:Siva Mcfarlane M.D.June 30, 2012 at 4:08:07 PM [phone] Signed GP/GP If you are the referring physici an and would like to consult with theradiologist who provided this interpretation, please contact Phoenix Anderson at [phone]. If this radiologist is unavailable, youwill be directed to anot her radiologist to assist. If you are a patient with a question regarding this report, pleasecontactyour referring physician directly. Professional Interpretation Provided By: [employer], Phone , These documents contain legally protected and confidential healthinformation intended only for the use of the individual or entity namedabove. If you are not the intended recipi ent, you are hereby notifiedthatany disclosure, copying, distribution, or other use of these documents isstrictly prohibited. If you have received this information in error,pleasenotify the sender immed iately and arrange for the return or destructionofthese documents. Dictated on 06/30/12 1148 by David Mcfarlane MDrieleTranscribed on 06/30/12 1619 by ITS IMPORTSign by Siva Mcfarlane MD on 1620 Sign by: Siva Mcfarlane MD 41-Sjn-48222:42 ABDOMEN COMPLETE Radiology Report See Note (Normal) Comments: PROCEDURE: ABDOMINAL ULTRASOUND REASON FOR EXAM: Female, 36 years old. Right upper quadrant pain. TECHNIQUE: Transabdominal ultrasound was performed with real-time andstatic paez scale imaging. T ECHNICAL QUALITY: Adequate. COMPARISON: None. FINDINGS: Liver: The liver measures 14.4 cm. There is normal echogenicity of theliver. The bile ducts are within normal limits. There is hepatic co lorflow. The direction of portal flow is hepatopetal. There is nodemonstrated mass lesion. Gallbladder: Normal distended gallbladder. The gallbladder wallmeasures2.2 mm. There is a negative sonogr aphic Christian's sign. There is nopericholecystic fluid. This a 3-mm echogenic focus in the neck of thegallbladder without obscure acoustical shadowing. This may representeither a tiny polyp or non-sha dowing gallstone. Common Bile Duct (C.B.D.): The common bile duct measures 4.3 mm. Pancreas: Normal size of the head, body and tail of the pancreas.Thereis normal echogenicity of the pancreas. The re is no demonstratedpancreatic mass or cyst. Spleen: Normal size of the spleen. The spleen measures 9.4 cm by 7.5cm. Right Kidney: Normal size of the right kidney. The right iqyopnydmzkfig71.3 cm. Normal renal cortex. The right cortex measures 1.6 cm. Thereisno demonstrated renal mass or cyst. There is no right hydronephrosis. Left Kidney: Normal size of the left kidney. The left kidney karla ures11.7cm. Normal renal cortex. The left cortex measures 2.3 cm. There is nodemonstrated renal mass or cyst. There is no left hydronephrosis. Thereis duplication of the collecting system. Aorta: Unremarkable I.V.C.: The IVC is patent. There is no ascites. IMPRESSION:Tiny gallstone or polyp seen in the neck of the gallbladder. Signed:Siva Mcfarlane M.D.June 30, 2012 at 10:09:04 AM EST3 [phone] Signed GP/GP If you are the referring physician and would like to consult with theradiologist who provided this interpretation, please contact Phoenix Anderson at . If this radiologist is unavailable, youwill be directed to another radiologist to assist. If you are a patient with a question regarding this report, pleasecontactyour referring physician direct ly. Professional Interpretation Provided By: [employer], Phone , These documents contain legally protected and confidential healthinformation intended only for the use of the individual or entity namedabove. If you are not the intended recipient, you are hereby notifiedthatany disclosure, copying, distribution, or other use of these documents isstrictly prohibited. If yo u have received this information in error,pleasenotify the sender immediately and arrange for the return or destructionofthese documents. Dictated on 06/30/12 0839 by Holly Mcfarlane MDscribed on 06/30/12 1014 by ITS IMPORTSign by Siva Mcfarlane MD on 06/30/12 1015 Sign by: Siva Mcfarlane MD 0-Uwb-772706:35 CBC With Differential/Platelet Comments: PERFORMED BY: [facility]6370 [facility] [id number] Immature Grans (Abs) 0.0 {x10E3/uL} (Normal) Range: 0.0-0.1 Immature Granulocytes 0 % (Normal) Range: 0-2 Baso (Absolute) 0.0 {x10E3/uL} (Normal) Range: 0.0-0.2 Eos (Absolute) 0.3 {x10E3/uL} (Normal) Range: 0.0-0.4 Monocytes(Absolute) 0.6 {x10E3/uL} (Normal) Range: 0.1-1.0 Lymphs (Absolute) 1.5 {x10E3/uL} (Normal) Range: 0.7-4.5 Neutrophils (Absolute) 7.4 {x10E3/uL} (Normal) Range: 1.8-7.8 Basos 0 % (Normal) Range: 0-3 Eos 3 % (Normal) Range: 0-7 Monocytes 6 % (Normal) Range: 4-13 Lymphs 15 % (Normal) Range: 14-46 Neutrophils 76 % (Abnormal) Range: 40-74 Platelets 246 {x10E3/uL} (Normal) Range: 140-415 RDW 13.6 % (Normal) Range: 12.3-15.4 MCHC 33.7 g/dL (Normal) Range: 31.5-35.7 MCH 30.8 pg (Normal) Range: 26.6-33.0 MCV 91 fL (Normal) Range: 79-97 Hematocrit 42.1 % (Normal) Range: 34.0-46.6 Hemoglobin 14.2 g/dL (Normal) Range: 11.1-15.9 RBC 4.61 {x10E6/uL} (Normal) Range: 3.77-5.28 WBC 9.9 {x10E3/uL} (Normal) Range: 4.0-10.5 7-Wex-814212:35 Celiac Disease Panel Comments: PERFORMED BY: [address] [id number] Immunoglobulin A, Qn, Serum 196 mg/dL (Normal) Range: 91-414 t-Transglutaminase (tTG) IgA <2 U/mL (Normal) Range: 0-3 Comments: Negative 0 - 3 Weak Positive 4 - 10 Positive >10 . Tissue Transglutaminase (tTG) has been identified as the endomysial antigen. Studies have demonstr- ated that endomysial IgA antibo dies have over 99% specificity for gluten sensitive enteropathy. Endomysial Antibody IgA Negative (Normal) 9-Zqk-399389:35 Comp. Metabolic Panel (14) Comments: [facility]FORMED BY: [facility] [id number] ALT (SGPT) 22 [iU]/L (Normal) Range: 0-32 Comments: Please note reference interval change AST (SGOT) 24 [iU]/L (Normal) Range: 0-40 Alkaline Phosphatase, S 58 [iU]/L (Normal) Range: 25-150 Bilirubin, Total 0.6 mg/dL (Normal) Range: 0.0-1.2 A/G Ratio 2.0 (Normal) Range: 1.1-2.5 Globulin, Total 2.3 g/dL (Normal) Range: 1.5-4.5 Albumin, Serum 4.5 g/dL (Normal) Range: 3.5-5.5 Protein, Total, Serum 6.8 g/dL (Normal) Range: 6.0-8.5 Calcium, Serum 9.0 mg/dL (Normal) Range: 8.7-10.2 Carbon Dioxide, Total 22 mmol/L (Normal) Range: 20-32 Chloride, Serum 104 mmol/L (Normal) Range: 97-108 Potassium, Serum 4.1 mmol/L (Normal) Range: 3.5-5.2 Sodium, Serum 142 mmol/L (Normal) Range: 134-144 BUN/Creatinine Ratio 19 (Normal) Range: 8-20 eGFR If Africn Am 107 mL/min/1.73 (Normal) eGFR If NonAfricn Am 93 mL/min/1.73 (Normal) Creatinine, Serum 0.81 mg/dL (Normal) Range: 0.57-1.00 BUN 15 mg/dL (Normal) Range: 6-20 Glucose, Serum 77 mg/dL (Normal) Range: 65-99 9-Tfu-839902:35 H pylori, IgM, IgG, IgA Ab Comments: PERFORMED BY: Survela70 [facility] [id number] H.pylori, IgM ABS <0.80 {index} (Normal) Range: 0.00-0.79 Comments: Negative <0.80 Equivocal 0.80 - 1.19 Positive >1.19 . Current studies suggest that H. pylori IgM testing should be performed concomitantly with H. pylori IgA and/or IgG tests to support a diagnosis of Helicobacter pylori infection. . For research use only, not for use in clinical diagnostic procedures. H. pylori, IgA ABS <0.89 {index} (Normal) Range: 0.00-0.88 Comments: Negative <0.89 Equivocal 0.89 - 0.99 Positive >0.99 H. pylori IgG, Abs 0.9 U/mL (Abnormal) Range: 0.0-0.8 Comments: Verified by repeat analysis Negative <0.9 Indeterminate 0.9 - 1.0 Positive >1.0 27-Euf-278888:18 Microscopic Examination Comments: PATIENT WAS FASTINGPERFORMED BY: [facility] [id number] Bacteria Few (Normal) Mucus Threads Present (Normal) Epithelial Cells (non renal) 0-10 {/hpf} (Normal) Range: 0 - 10 RBC 0-3 {/hpf} (Normal) Range: 0 - 3 WBC 0-5 {/hpf} (Normal) Range: 0 - 5 49-Dpu-742581:18 LIPID PANEL (13740) Comments: PATIENT WAS FASTINGPERFORMED BY: Survela70 [facility] InspectorsFormerly [facility] [id number] LDL Cholesterol Calc 112 mg/dL (Abnormal) Range: 0-99 LDL/HDL Ratio 2.2 {ratio_units} (Normal) Range: 0.0-3.2 VLDL Cholesterol Gracy 13 mg/dL (Normal) Range: 5-40 HDL Cholesterol 51 mg/dL (Normal) Comments: According to ATP-III Guidelines, HDL-C >59 mg/dL is considered anegative risk factor for CHD. Triglycerides 65 mg/dL (Normal) Range: 0-149 Cholesterol, Total 176 mg/dL (Normal) Range: 100-199 24-Ffs-187908:18 URINALYSIS, W/ MICRO (62935) Comments: PATIENT WAS FASTINGPERFORMED BY: [employer] icixFormerly [facility] [id number] Microscopic Examination See below: (Normal) Microscopic Examination MICRON (Normal) Comments: Microscopic follows if indicated. Nitrite, Urine Negative (Normal) Urobilinogen,Semi-Qn 0.2 mg/dL (Normal) Range: 0.0-1.9 Bilirubin Negative (Normal) Occult Blood Negative (Normal) Ketones Negative (Normal) Glucose Negative (Normal) Protein Negative (Normal) WBC Esterase Negative (Normal) Appearance Clear (Normal) Urine-Color Yellow (Normal) pH 6.5 (Normal) Range: 5.0-7.5 Specific [place] 1.018 (Normal) Range: 1.005-1.030 90-Uhy-346361:18 EBV Panel ([id number]) Comments: PATIENT WAS FASTINGPERFORMED BY: [employer] [place] [id number] Interpretation: SPRCS (Normal) Comments: EBV Interpretation Chart . Interpretation VCA-IgM EA-IgG VCA-IgG NA-ABS . Susceptible - - - - Acute Infection + +or- +or- - Convalescent Phase +or- +or- + + Chronic or Reactivated - + + +or- Old Infection - - +or- + + Antibody Present - Antibody Absent EBV Nuclear Antigen Ab, IgG 6.9 {AI} (Abnormal) Range: 0.0-0.8 Comments: Negative <0.9 Equivocal 0.9 - 1.0 Positive >1.0 EBV Ab VCA, IgG >8.0 {AI} (Abnormal) Range: 0.0-0.8 Comments: Negative <0.9 Equivocal 0.9 - 1.0 Positive >1.0 EBV Early Antigen Ab, IgG <0.2 {AI} (Normal) Range: 0.0-0.8 Comments: Negative <0.9 Equivocal 0.9 - 1.0 Positive >1.0 EBV Ab VCA, IgM <0.2 {AI} (Normal) Range: 0.0-0.8 Comments: Negative <0.9 Equivocal 0.9 - 1.0 Positive >1.0 :18 T4, FREE (THYROXINE) ([id number]) Comments: PATIENT WAS FASTINGPERFORMED BY: [facility] [id number] T4,Free(Direct) 1.07 ng/dL (Normal) Range: 0.82-1.77 :18 T3, FREE (TRIDOTHYRONINE) ([id number]) Comments: PATIENT WAS FASTINGPERFORMED BY: [facility] [id number] Triiodothyronine,Free,Serum 2.6 pg/mL (Normal) Range: 2.0-4.4 :18 METABOLIC PANEL, COMPREHENSIVE Comments: PATIENT WAS FASTINGPERFORMED BY: [facility] [id number] ([id number]) ALT (SGPT) 16 [iU]/L (Normal) Range: 0-40 AST (SGOT) 21 [iU]/L (Normal) Range: 0-40 Alkaline Phosphatase, S 62 [iU]/L (Normal) Range: 25-150 Bilirubin, Total 1.0 mg/dL (Normal) Range: 0.0-1.2 A/G Ratio 1.9 (Normal) Range: 1.1-2.5 Globulin, Total 2.4 g/dL (Normal) Range: 1.5-4.5 Albumin, Serum 4.6 g/dL (Normal) Range: 3.5-5.5 Protein, Total, Serum 7.0 g/dL (Normal) Range: 6.0-8.5 Calcium, Serum 9.4 mg/dL (Normal) Range: 8.7-10.2 Carbon Dioxide, Total 23 mmol/L (Normal) Range: 20-32 Chloride, Serum 104 mmol/L (Normal) Range: 97-108 Potassium, Serum 4.4 mmol/L (Normal) Range: 3.5-5.2 Sodium, Serum 140 mmol/L (Normal) Range: 135-145 BUN/Creatinine Ratio 20 (Normal) Range: 8-20 eGFR If Africn Am 99 mL/min/1.73 (Normal) Comments: Note: A persistent eGFR <60 mL/min/1.73 m2 (3 months or more) mayindicate chronic kidney disease. An eGFR >59 mL/min/1.73 m2 with anelevated urine protein also may indicate chronic kidney disease.Calculated using CKD-EPI formula. eGFR If NonAfricn Am 86 mL/min/1.73 (Normal) Creatinine, Serum 0.87 mg/dL (Normal) Range: 0.57-1.00 BUN 17 mg/dL (Normal) Range: 6-20 Glucose, Serum 73 mg/dL (Normal) Range: 65-99 31-Rjl-937806:18 TSH ([id number]) Comments: PATIENT WAS FASTINGPERFORMED BY: [facility] [id number] TSH 2.130 {uIU/mL} (Normal) Range: 0.450-4.500 15-Gbx-931940:18 CBC WITH MANUAL DIFF Comments: PATIENT WAS FASTINGPERFORMED BY: [facility] [id number] Information: [id number] ([id number]) Immature Grans (Abs) 0.0 {x10E3/uL} (Normal) Range: 0.0-0.1 Immature Granulocytes 0 % (Normal) Range: 0-2 Comments: Please note reference interval change Baso (Absolute) 0.0 {x10E3/uL} (Normal) Range: 0.0-0.2 Eos (Absolute) 0.4 {x10E3/uL} (Normal) Range: 0.0-0.4 Monocytes(Absolute) 0.9 {x10E3/uL} (Normal) Range: 0.1-1.0 Lymphs (Absolute) 1.6 {x10E3/uL} (Normal) Range: 0.7-4.5 Neutrophils (Absolute) 7.6 {x10E3/uL} (Normal) Range: 1.8-7.8 Basos 0 % (Normal) Range: 0-3 Eos 4 % (Normal) Range: 0-7 Monocytes 8 % (Normal) Range: 4-13 Lymphs 15 % (Normal) Range: 14-46 Neutrophils 73 % (Normal) Range: 40-74 Platelets 226 {x10E3/uL} (Normal) Range: 140-415 RDW 14.1 % (Normal) Range: 11.7-15.0 MCHC 33.1 g/dL (Normal) Range: 32.0-36.0 MCH 30.5 pg (Normal) Range: 27.0-34.0 MCV 92 fL (Normal) Range: 80-98 Hematocrit 43.2 % (Normal) Range: 34.0-44.0 Hemoglobin 14.3 g/dL (Normal) Range: 11.5-15.0 RBC 4.69 {x10E6/uL} (Normal) Range: 3.80-5.10 WBC 10.6 {x10E3/uL} (Abnormal) Range: 4.0-10.5 71-Gmq-119041:16 STREP QUICK TEST ([id number]) STREP QUICK TEST negative (Normal) 39-Nsb-807047:00 CULTURE, THROAT See Note (Normal) Comments: Penicillin is the drug of choice for Beta Streptococcalinfections. For Penicillin allergic patients, Erythromycinmay be used. RESULTS FAXED TO DR CARLOS 09/15/06 Angela0 [place] GROWTH RARE ORGANISM 1: GROUP A BETA STREPTOCOCCUS Plan of Care Name Dates Details Instructions BMI 26.0-26.9,adult : Follow up if no improvement or if symptoms worsen Indication: BMI 26.0-26.9,adult Tobacco abuse : Eprescribed prescriptions (G8553) Indication: Tobacco abuse Tobacco abuse : Smoking Cessation/Tobacco Education Indication: Tobacco abuse Fatty liver : Diet, Exercise, and Wt loss Indication: Fatty liver Current nonsmoker : Follow up in 6 weeks Indication: Current nonsmoker Anxiety : Eprescribed prescriptions (G8553) Indication: Anxiety Current nonsmoker : Follow up in 1 week Indication: Current nonsmoker Anxiety : Eprescribed prescriptions (G8553) Indication: Anxiety Abnormal liver diagnostic imaging : Eprescribed prescriptions (G8553) Indication: Abnormal liver diagnostic imaging Urinary frequency (Renamed from Frequency) : Eprescribed prescriptions (G8553) Indication: Urinary frequency (Renamed from Frequency) Tobacco abuse : Eprescribed prescriptions (G8553) Indication: Tobacco abuse Diarrhea : Diarrhea instructions Indication: Diarrhea Cyst of ovary, unspecified laterality : Eprescribed prescriptions (G8553) Indication: Cyst of ovary, unspecified laterality Anxiety : Eprescribed prescriptions (G8553) Indication: Anxiety Abnormal urine color : Eprescribed prescriptions (G8553) Indication: Abnormal urine color C. difficile colitis : Eprescribed prescriptions (G8553) Indication: C. difficile colitis DIARRHEA (Renamed from D (diarrhea)) : Acute Diarrhea: acute diarrhea Indication: DIARRHEA (Renamed from D (diarrhea)) DIARRHEA (Renamed from D (diarrhea)) : Eprescribed prescriptions (G8553) Indication: DIARRHEA (Renamed from D (diarrhea)) DIARRHEA (Renamed from D (diarrhea)) : *Abd Pain Red Flags Indication: DIARRHEA (Renamed from D (diarrhea)) DIARRHEA (Renamed from D (diarrhea)) : Diarrhea instructions Indication: DIARRHEA (Renamed from D (diarrhea)) Vitamin D deficiency : Follow up in 3 months Indication: Vitamin D deficiency Vitamin D deficiency : Reviewed Lab Indication: Vitamin D deficiency Kidney stone : Reviewed Diagnostic Tests Indication: Kidney stone Diarrhea : Reviewed Diagnostic Tests Indication: Diarrhea Colitis : Reviewed Lab Indication: Colitis History of colitis : Follow up in 1 week Indication: History of colitis FATIGUE : *fatigue education Indication: FATIGUE Bronchitis, acute : *Antibiotic Usage Education - Female Indication: Bronchitis, acute SHORTNESS OF BREATH : Cough: chest congestion Indication: SHORTNESS OF BREATH Encounter for smoking cessation counseling : Benefits of Quitting Smoking: cigarettes Indication: Encounter for smoking cessation counseling Hematuria : follow up for recheck urine 1 week after complete antibiotic Can come in as nurse visit Indication: Hematuria ACUTE CYSTITIS : *UTI treatment Indication: ACUTE CYSTITIS ACUTE CYSTITIS : Water in diet, brief version Indication: ACUTE CYSTITIS Dysuria : Urinary Tract Infection in Women *: gynecological health Indication: Dysuria Abdominal pain, acute, generalized : Follow up in 2 weeks Indication: Abdominal pain, acute, generalized Screening for malignant neoplasm of colon : *Colon Cancer Screening Indication: Screening for malignant neoplasm of colon Flatulence : Follow up in 2 weeks Indication: Flatulence Pneumonia due to other specified bacteria : Antibiotic Usage Education - Female Indication: Pneumonia due to other specified bacteria Pharyngitis, acute : URI treament Indication: Pharyngitis, acute Planned Observations TSH (THYROID STIMULATING HORMONE) ([id number])Indication: Elevated TSH On: 22-Gro-311700:02 Request Comments: Week of December 29 LIPID PANEL (03656)Indication: Anxiety On: 2-Nsw-176207:05 Request CALCIFEDIOL (43391)Indication: Vitamin D deficiency On: :04 Request Metabolic Panel, Comprehensive (52438)Indication: Anxiety On: :04 Request CBC & PLATELETS (AUTO) (37755)Indication: Anxiety On: 0-Hto-528534:04 Request GONADOTROPIN-LH (59911)Indication: Anxiety On: :03 Request GONADOTROPIN-FSH (93627)Indication: Anxiety On: :03 Request TSH (73170)Indication: Anxiety On: :03 Request C-REACTIVE PROTEIN (24954)Indication: C. difficile colitis On: 1-Pnv-828061:55 Request Comments: stat METABOLIC PANEL, COMPREHENSIVE (44652)Indication: C. difficile colitis On: :55 Request Comments: stat CBC with auto diff (48050)Indication: C. difficile colitis On: :55 Request Comments: stat HCG Qualitative, Serum (95697)Indication: Abdominal pain, acute, generalized On: :41 Request Comments: stat METABOLIC PANEL, COMPREHENSIVE (97352)Indication: Abdominal pain, acute, generalized On: :40 Request Comments: stat SED RATE ERYTHROCYTE (79158)Indication: Abdominal pain, acute, generalized On: :40 Request Comments: stat CBC W/AUTO DIFF WBC (22366)Indication: Abdominal pain, acute, generalized On: 1-Tff-018658:40 Request Comments: stat C-REACTIVE PROTEIN (00601)Indication: Abdominal pain, acute, generalized On: 8-Lti-182788:40 Request VERNA CULTURE-STOOL (54798)Indication: DIARRHEA (Renamed from D (diarrhea)) On: :58 Request OVA & PARASITE DIR SMEAR ([id number])Indication: DIARRHEA (Renamed from D (diarrhea)) On: :58 Request LEUKOCYTE COUNT, FECAL ([id number])Indication: DIARRHEA (Renamed from D (diarrhea)) On: :58 Request C-DIFFICILE, STOOL ([id number])Indication: DIARRHEA (Renamed from D (diarrhea)) On: :58 Request FLURESCNT ANTIB SCRN EA (37919) celiac profileIndication: Abdominal pain, acute, generalized On: :33 Request IMMUNOASSAY, ANALYTE (NON-INFECT) (50679) celiac profileIndication: Abdominal pain, acute, generalized On: :33 Request IGA/IGD/IGG/IGM-EACH ([id number]) celiac profileIndication: Abdominal pain, acute, generalized On: :33 Request HELICOBACTER PYLORI ANTIBODY (40343)Indication: Abdominal pain, acute, generalized On: :32 Request Helicobacter pylori Ag, EIA (50507)Indication: Abdominal pain, acute, generalized On: :32 Request CBC, Platelets & Auto Diff (01917)Indication: Abdominal pain, acute, generalized On: :31 Request OVA & PARASITE DIR SMEAR ([id number])Indication: Abdominal pain, acute, generalized On: :21 Request OCCULT BLOOD FECES SCREEN ([id number])Indication: Abdominal pain, acute, generalized On: : Request LEUKOCYTE COUNT, FECAL ([id number])Indication: Abdominal pain, acute, generalized On: : Request Clostridium difficile Toxin A+B, EIA ([id number])Indication: Abdominal pain, acute, generalized On: : Request VERNA CULTURE-STOOL ([id number])Indication: Abdominal pain, acute, generalized On: :21 Request Metabolic Panel, Comprehensive ([id number])Indication: Abdominal pain, acute, generalized On: :21 Request Anti-TPO Antibody (30514)Indication: Abnormal TSH On: 63-Oqd-707102:51 Request T4, FREE (THYROXINE) ([id number])Indication: Abnormal TSH On: :51 Request T3, FREE (TRIDOTHYRONINE) ([id number])Indication: Abnormal TSH On: :51 Request METABOLIC PANEL, COMPREHENSIVE (89262)Indication: Anxiety On: 47-Kav-033332:50 Request TSH ([id number])Indication: Abnormal TSH On: 73-Faj-575679:50 Request LIPID PANEL (19221)Indication: Family history of ischemic heart disease On: 97-Cnv-657619:48 Request VERNA CULTURE-OTHER ([id number])Indication: Pharyngitis, acute On: 33-Zka-293440:37 Request Planned Procedures Aerosol Treatment (89241)By: Maximo On: 06-Apr-2018 Intent IMAGE CONSULTANT, Kaylah SCREENING DIGITAL TOMOSYNTHESIS OF On: 08-Oct-2017 Intent BREAST ([id number])By: Ana Lilia Carlos DO, DO, Kathleen CT - Abdomen & Pelvis (Without On: 11-Dec-2015 Intent Contrast)By: Valentina Underwood DO CT - Abdomen (IV Contrast Needed)By: On: 10-Dec-2015 Intent Kj ANDERSON Valentina A KUB (88942)By: Sohail Underwood DOa A On: 25-Nov-2015 Intent Ultrasound - Abdomen Complete & On: 25-Nov-2015 Intent PelvisBy: Valentina Underwood DO A CT - Abdomen (IV Contrast Needed)By: On: 19-Nov-2015 Intent Kj ANDERSON Valentina A CT - Abdomen & Pelvis Stone On: 19-Nov-2015 Intent ProtocolBy: Valentina Underwood DO A INFUSION, NORMAL SALINE SOLUTION , On: 26-Jun-2015 Intent 1000 CC (Special Coverage Comments: lot: [id number]: rte: IV right anticub. 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 See MCM: 2049) ([id number])By: Charly LARSEN, Nathaly Rausch CT - Abdomen (IV Contrast Needed)By: On: 19-Apr-2015 Intent Valentina Underwood DO A Comments: jul ULTRASOUND OF LIVER ([id number])By: Kj On: 21-Mar-2015 Intent DO Vlaentina A Ultrasound - PelvisBy: Kj DO, On: 21-Mar-2015 Intent Valentina A Ultrasound - PelvisBy: Kj ANDERSON, On: 20-Mar-2015 Intent Valentina A Ultrasound - LiverBy: Kj ANDERSON Valentina On: 20-Mar-2015 Intent A Ultrasound - PelvisBy: Kj ANDERSON, On: 19-Oct-2014 Intent Valentina A Ultrasound - LiverBy: Kj ANDERSON Valentina On: 19-Oct-[address] - Abdomen & Pelvis (IV Contrast On: 17-Oct-2014 Intent Needed)By: Valentina Underwood DO A Comments: stat call results- prob c diff colitis Ultrasound - Abdomen Complete & On: 20-Jul-2014 Intent PelvisBy: Valarie Marsh CNP Pulse Oximetry ([id number])By: Milady, On: 27-Jun-2013 Intent Lynn Comments: 98% Eprescribed prescriptions (G8553)By: On: 27-Jun-2013 Intent Lynn Henning Eprescribed prescriptions (G8553)By: On: 27-Dec-2012 Intent Valentina Underwood DO UGI (With air contrast if On: 24-Jun-2012 Intent necessary)By: Valarie Marsh CNP Ultrasound - Abdomen Complete & On: 24-Jun-2012 Intent PelvisBy: Valarie Marsh CNP Toradol Injection, 30 mg ([id number])By: On: 07-Mar-2012 Intent Nathaly Parks MD Comments: Lot #:[id number] date:[place] given:30mgRoute: IMSite given:left deltoid Given by: deon MAMMOGRAM, SCREENING, BOTH BREASTS On: 02-Jun-2010 Intent ([id number])By: Valentina Underwood DO Aerosol Treatment (37683)By: Kj On: 24-Sep-2008 Intent Valentina ANDERSON Spirometry ([id number])By: Milady On: 24-Sep-2008 Intent Lynn Comments: good effort and curve but significant obstruction SPECIMEN HNDLNG/TRNSPRT, OFFC > LAB On: 13-Sep-2006 Intent ([id number])By: RAH DUBOIS CNP Planned Medications INFUSION, NORMAL SALINE SOLUTION , 1000 CC Ordered: 26-Jun-2015 Pending Nathaly Parks MD INJECTION, KETOROLAC TROMETHAMINE, PER 15 MG Ordered: 07-Mar-2012 Pending Nathaly Parks MD Instructions Name Dates Details Tobacco abuse : How to access health information online Indication: Tobacco abuse Tobacco abuse : How to access health information online - Detail Indication: Tobacco abuse Tobacco abuse : Patient Instructions Indication: Tobacco abuse Tobacco abuse : How to access health information online Indication: Tobacco abuse Tobacco abuse : How to access health information online - Detail Indication: Tobacco abuse Tobacco abuse : Patient Instructions Indication: Tobacco abuse Tobacco abuse : How to access health information online Indication: Tobacco abuse Tobacco abuse : How to access health information online - Detail Indication: Tobacco abuse Tobacco abuse : Patient Instructions Indication: Tobacco abuse Anxiety : How to access health information online Indication: Anxiety Anxiety : How to access health information online - Detail Indication: Anxiety Anxiety : Patient Instructions Indication: Anxiety Anxiety : How to access health information online Indication: Anxiety Anxiety : How to access health information online - Detail Indication: Anxiety Anxiety : Patient Instructions Indication: Anxiety Abnormal liver diagnostic imaging : How to access health information online Indication: Abnormal liver diagnostic imaging Abnormal liver diagnostic imaging : How to access health information online - Detail Indication: Abnormal liver diagnostic imaging Abnormal liver diagnostic imaging : Patient Instructions Indication: Abnormal liver diagnostic imaging Urinary frequency (Renamed from Frequency) : How to access health information online Indication: Urinary frequency (Renamed from Frequency) Urinary frequency (Renamed from Frequency) : How to access health information online - Detail Indication: Urinary frequency (Renamed from Frequency) Urinary frequency (Renamed from Frequency) : Patient Instructions Indication: Urinary frequency (Renamed from Frequency) Tobacco abuse : How to access health information online Indication: Tobacco abuse Tobacco abuse : How to access health information online - Detail Indication: Tobacco abuse Tobacco abuse : Patient Instructions Indication: Tobacco abuse Cyst of ovary, unspecified laterality : How to access health information online Indication: Cyst of ovary, unspecified laterality Cyst of ovary, unspecified laterality : How to access health information online - Detail Indication: Cyst of ovary, unspecified laterality Cyst of ovary, unspecified laterality : Patient Instructions Indication: Cyst of ovary, unspecified laterality Anxiety : Patient Instructions Indication: Anxiety Abnormal urine color : Patient Instructions Indication: Abnormal urine color C. difficile colitis : Patient Instructions Indication: C. difficile colitis DIARRHEA (Renamed from D (diarrhea)) : Patient Instructions Indication: DIARRHEA (Renamed from D (diarrhea)) Vitamin D deficiency : Patient Instructions Indication: Vitamin D deficiency SHORTNESS OF BREATH : Patient Instructions Indication: SHORTNESS OF BREATH Encounter for smoking cessation counseling : Patient Instructions Indication: Encounter for smoking cessation counseling Dysuria : Patient Instructions Indication: Dysuria Pharyngitis, acute : Sore throat: diagnosis and treatment Indication: Pharyngitis, acute Encounters Office Visit On: 06-Apr-2018 15:28 Encounter Diagnosis: Unspecified Diagnosis End: 06-Apr-2018 15:30 [facility] Office Visit On: 06-Apr-2018 14:57 Encounter Reason: Cold Symptoms - Symptoms include nasal congestion, runny nose, sore throat, dry cough and headache. Onset was 3 day(s) ago. Note for Cold symptoms: started sore throat chest then nasal congestion and ear painEncounter Diagnosis: End: 06-Apr-2018 15:28 Tobacco abuse, BMI 26.0-26.9,adult, Sore throat, Bronchitis, Congestion of nasal sinus, Cough [facility] Office Visit On: 06-Jan-2018 7:16 Encounter Reason: Follow up for chronic medical issues - The patient feels well with minor complaints, has good energy level and is sleeping poorly. Patient has been compliant with instructions. Current medication use: n End: 06-Jan-2018 11:15 o side effects and compliant with dosing regimen. Patient sleeps 6 hours per night. Nutrition: balanced diet and no supplemental vitamins & iron. The medical issues the patient is following up for i nclude All identified problems below. blood pressure range : (88/49) and weight :.Encounter Diagnosis: BMI 26.0-26.9,adult, Tobacco abuse, Fatigue (780.79), Vitamin D deficiency, Abnormal TSH [facility] Office Visit On: 08-Oct-2017 7:03 Encounter Reason: Physical female exam - Last seen between 6-12 months ago. General health: feels well with minor complaints, has decreased energy level (a little tired) and is sleeping poorly. The patient's appetite is End: 08-Oct-2017 13:20 normal. Nutrition: normal/adequate. Exercises 4 days per week. Sleeps on average 6 hours per night. Elimination problems include diarrhea (always has it). Safety measures include appropriate use of safety belts and home smoke detectors. Encounter Diagnosis: BMI 27.0-27.9,adult, Vitamin D deficiency, Fatty liver, Tobacco abuse, Degenerative Disc Disease - Lumbar (722.52), Encounter for screening for lipid disorder, Encounter for screening mammogram for breast cancer (Renamed from Encounter for screening mammogram for malignant neoplasm of breast), Anxiety (300.00), Elevated TSH [facility] Office Visit On: 23-Nov-2016 15:43 Encounter Reason: Follow up tests - Diagnostic tests include other (labs). Current symptoms include abdominal pain and other (dry skin, brittle hair). Note for Discuss procedure results: noteably she has worse right ba End: 23-Nov-2016 16:04 ck pain when driving long distance in car better with up and moving around-- sometimes down legs but not for long timeEncounter Diagnosis: BMI 30.0-30.9,adult, Current nonsmoker, Anxiety (300.00), Vitamin D deficiency, Elevated TSH [facility] Office Visit On: 16-Nov-2016 16:25 Encounter Reason: Anxiety - Symptoms include anxiety, difficulty concentrating, excessive worry, fatigue, irritability and muscle tension. The symptoms occur constantly. The patient describes this as worsening. Symptoms End: 16-Nov-2016 17:12 are exacerbated by stress. Associated symptoms include racing heart. The patient is not currently being treated for this problem. Since diagnosis the disease has been worsening. Previous presentation in cluded anxiety, difficulty concentrating, excessive worry, fatigue, irritability, muscle tension and racing heart. Note for Anxiety: Stopped smoking and off chantex end of Sep. Smoking is stress reliever and gaining wt. Irritable and tearful. Encounter Diagnosis: BMI 30.0-30.9,adult, Current nonsmoker, Anxiety (300.00), Vitamin D deficiency [facility] Office Visit On: 20-Dec-2015 7:19 Encounter Reason: Follow up tests - Diagnostic tests include CT scan and ultrasound. Date: (12/17/15). Current symptoms include abdominal pain (colitis) and other (right side flank pain). Note for Discuss procedure result End: 23-Dec-2015 10:11 s: noteably she has worse right back pain when driving long distance in car better with up and moving around-- sometimes down legs but not for long timeEncounter Diagnosis: Abnormal liver diagnostic imaging, Fatty liver, Vitamin D deficiency, Degenerative Disc Disease - Lumbar (722.52), Tobacco dependence in remission, Tobacco abuse [facility] Phone Encounter On: 10-Dec-2015 15:28 Encounter Diagnosis: Abnormal liver diagnostic imaging End: 11-Dec-2015 9:06 [facility] Phone Encounter On: 25-Nov-2015 10:55 Encounter Diagnosis: Flank pain End: 25-Nov-2015 11:24 [facility] Office Visit On: 19-Nov-2015 9:10 Encounter Reason: UTI - The urinary symptoms are described as frequency, urgency, flank pain and incontinence. The symptoms have been occurring for 2 weeks and have been increasing. The urine is described as yellow and End: 19-Nov-2015 22:43 dark. The symptoms have been associated with low back pain (flank area), while the symptoms have not been associated with fever, abdominal pain, chills, nausea or vomiting. Note for Infection: - - she getting some incontinence- after standing up to urinate- and urgency after just went- -sometimes flanks pian comes and goes not all the time hx of stone- jesse rightEncounter Diagnosis: Urinary frequency (Renamed from Frequency), Flank pain, Abnormal liver diagnostic imaging [facility] Office Visit On: 14-Oct-2015 16:53 Encounter Reason: Smoking Cessation - The patient smokes cigarettes. Tobacco use began 20 year(s) ago. Daily cigarette use is 1 pack per day. The patient has high interest in quitting. The patient has tried to quit sever End: 14-Oct-2015 22:59 al times. Symptoms include smoking addiction and nicotine craving, while symptoms do not include dyspnea at rest, dyspnea on exertion or chest discomfort. Associated symptoms do not include dry mouth, b ad breath, stained teeth, nausea, dizziness or headaches. The patient is not currently being treated for this problem. Note for Smoking cessation: years ago chantix worked - buproprion didnt - she had no ill effects from the chantix before she feels has coverage for this-smoking a pack a dayEncounter Diagnosis: Tobacco abuse, Anxiety (300.00) [facility] Office Visit On: 26-Jun-2015 15:11 Encounter Reason: Diarrhea - Adult - The last clinic visit was 2 week(s) ago. Symptoms include diarrhea, fecal urgency and abdominal cramps (LLQ). The stools are described as loose. Onset was sudden 2 week(s) ago. There End: 26-Jun-2015 17:20 is no known event that preceded symptom onset. The symptoms occur intermittently. The episodes occur 5 time(s) a day. This is described as moderate in severity and worsening. Symptoms are not exacerbate d by eating, spicy foods, greasy foods, dairy products, stress or activity. Symptoms are not relieved by antidiarrheals, antiemetics, antispasmodics, stomach rest, high fiber diet or fluid intake. Assoc iated symptoms include headache. The patient is not currently being treated for this problem. Pertinent medical history does not include food allergy, milk allergy, lactose intolerance, chronic constipa tion, inflammatory bowel disease, cystic fibrosis, celiac disease, irritable bowel syndrome, intussusception, Hirschsprung disease, necrotizing enterocolitis, failure to thrive, hyperthyroidism or impai red immunity. Risk factors do not include day care attendance, recent travel, ill contact(s) or recent antibiotic use. Previous presentation included diarrhea, abdominal pain, abdominal bloating and headache.Encounter Diagnosis: Diarrhea, Abdominal cramping in left lower quadrant, DEHYDRATION (Renamed from Body water dehydration) [facility] Phone Encounter On: 16-May-2015 13:40 Encounter Diagnosis: Unspecified Diagnosis End: 16-May-2015 13:44 [facility] Phone Encounter On: 16-May-2015 10:09 Encounter Diagnosis: Unspecified Diagnosis End: 16-May-2015 10:12 [facility] Office Visit On: 19-Apr-2015 8:07 Encounter Reason: Follow up tests - Diagnostic tests include ultrasound (liver and pelvic). Date: ( 04/12/15). Note for Discuss procedure results: wants to do the followup liver us and pelvic us we discussed before - - End: 22-Apr-2015 18:05 tolerating buprorion and doing wellEncounter Diagnosis: Ovarian Cyst, Unspecified (620.2), Endometrial polyp, Uterine fibroid, Abnormal uterine bleeding, Abnormal CT of Abdomen(794.9), Psoriasis [facility] Phone Encounter On: 21-Mar-2015 13:13 Encounter Diagnosis: Ovarian Cyst, Unspecified (620.2), Abnormal liver diagnostic imaging End: 21-Mar-2015 13:33 [facility] Office Visit On: 20-Mar-2015 16:09 Encounter Reason: Smoking Cessation - The patient smokes cigarettes. Tobacco use began 20 year(s) ago. Daily cigarette use is 1 pack per day. The patient has high interest in quitting. Symptoms include smoking addiction, End: 21-Mar-2015 21:44 nicotine craving and anxiety, while symptoms do not include cough. Associated symptoms do not include dry mouth, bad breath, stained teeth, nausea, dizziness, headaches or irritability. The patient is not currently being treated for this problem. Note for Smoking cessation: she has used chantix but threw up on it , [ADDITIONAL REASON] Follow up tests - Note for Discuss procedure results: wants to do the followup liver us and pelvic us we discussed before Encounter Diagnosis: Anxiety (300.00), tobacco abuse, Abnormal liver diagnostic imaging, Ovarian Cyst, Unspecified (620.2) [facility] Office Visit On: 28-Feb-2015 9:45 Encounter Diagnosis: Sebaceous cyst End: 28-Feb-2015 10:45 [facility] Office Visit On: 05-Nov-2014 10:30 Encounter Reason: Follow up for chronic medical issues - The patient feels well with minor complaints (urine is dark in color since having c-diff), has good energy level and is sleeping well. Patient has been compliant w End: 05-Nov-2014 21:21 ith instructions. Current medication use: no side effects and compliant with dosing regimen. Patient sleeps 8 hours per night. Nutrition: balanced diet, supplemental vitamins and low salt diet. The medi gracy issues the patient is following up for include All identified problems below and other (tobacco use and pseudotumoral cerbri). Note for Follow up for chronic medical issues: - she is not havign th e diarrhea anymore- -6-7 hours of sleep- alot of work stress- 6 kids with her mate total and supposed to get in january- got rid of cough - vaginal issues gone as well, [ADDITIONAL REASON] Follow up tests - Diagnostic tests include other (labs ). Date: (10/22/14). , [ADDITIONAL REASON] Urinary problems - The onset of the urinary problems has been sudden and they goldsmith ve been occurring in a persistent pattern for 2 weeks. The course has been constant. There has been no associated fever / chills, back pain, nausea or blood in urine. Note for Urinary problems: Abnrom al color of urine. Dark mehul color since on atbs and having c-diff. No uti symptoms otherwise.drinking alot of caffeine and not much water we discussed- Encounter Diagnosis: Abnormal urine color, DIARRHEA (Renamed from D (diarrhea)), Cough, ACUTE CYSTITIS (595.0), SHORTNESS OF BREATH (786.05), Abdominal Pain,General (789.07), Vaginal Discharge (Renamed from Discharge from the vagina), Vitamin D deficiency, Fatigue (780.79), Anxiety (300.00) [facility] Phone Encounter On: 23-Oct-2014 15:50 Encounter Diagnosis: Unspecified Diagnosis End: 23-Oct-2014 15:57 [facility] Phone Encounter On: 23-Oct-2014 13:49 Encounter Diagnosis: C. difficile colitis End: 23-Oct-2014 13:54 [facility] Office Visit On: 19-Oct-2014 9:47 Encounter Reason: Follow up acute care visit - The patient feeling better since last seen and improving. Patient has been compliant with instructions. Current medication use: no side effects and compliant with dosing reg End: 21-Oct-2014 22:36 imen. The medical issues the patient is following up for include All identified problems below and other (c-diff and colitis). Note for Follow up acute care visit: last diarrhea was 4pm yesterday had 12 episodes though prior to that- last bm this am - more formed- mucous and yellow- no blood- less pain can walk and slept last night - - labs alot better - tenderness even better than yesterday- still cough nonproductive no sob wheeze fever- wants to try inhaler againEncounter Diagnosis: C. difficile colitis, Vaginal Discharge (Renamed from Discharge from the vagina), Ovarian Cyst, Unspecified (620.2), Abnormal liver diagnostic imaging, Cough [facility] Office Visit On: 18-Oct-2014 18:54 Encounter Diagnosis: C. difficile colitis End: 18-Oct-2014 18:56 [facility] Office Visit On: 17-Oct-2014 14:55 Encounter Reason: Diarrhea - The onset of the diarrhea has been sudden and has been occurring in a persistent pattern for 3 days. The course has been increasing. The stools are watery and mixed with blood and mucus. The End: 18-Oct-2014 18:46 volume of the stools is large. The symptoms have been associated with abdominal pain, nausea and recent antibiotics, while the symptoms have not been associated with constipation, fever or vomiting. Not e for Diarrhea: was on antiobitic from loan underwriter for pid in last month- on wed was treated for bronchitis with antibitoc- today had 10 episodes of diarrhea- dark brown to yellow odor and blood with wiping - not looking in toilet- treated vaginal yeast infection- with otc one day- chills and sweats since wed- nausea no vomit poor appetite- different than her micropscopic- and still taking the meds for that- is having abd pain- no fever but had chills Encounter Diagnosis: DIARRHEA (Renamed from D (diarrhea)), Vaginal Discharge (Renamed from Discharge from the vagina), Abdominal Pain,General (789.07) [facility] Office Visit On: 27-Jul-2014 8:26 Encounter Reason: Follow up tests - Diagnostic tests include other (labs ) and ultrasound.Encounter Diagnosis: Abdominal pain, Kidney stone, Vitamin D deficiency, Diarrhea, Colitis End: 27-Jul-2014 9:09 [facility] Office Visit On: 20-Jul-2014 8:56 Encounter Reason: Physical female exam - General health: feels well with no complaints ( I do have colitis ), has decreased energy level and is sleeping well. The patient's appetite is normal. Nutrition: eating a varie End: 20-Jul-2014 9:41 ty of foods. Sleeps on average 7 hours per night. Normal bowel and bladder habits. Safety measures include appropriate use of safety belts and home smoke detectors. Current emotional problems include no ne (stress). screening, mammography ( I have had one baseline- that was years ago, I am going to have Dr Crowe do this ) and screening, Pap smear (07/28- I have one scheduled for next week ).Encounter Diagnosis: History of colitis, FATIGUE, History of Helicobacter infection, Abdominal pain [facility] Office Visit On: 27-Jun-2013 9:03 Encounter Reason: Cough - The onset of the cough has been 1 weeks. The cough is characterized as productive of mucopurulent sputum. The amount of sputum produced is scanty. The cough occurs all the time. The symptoms ar End: 27-Jun-2013 9:25 e aggravated by supine posture, but not by exercise. The symptoms have been associated with dyspnea, hoarseness and wheezing, while the symptoms have not been associated with fever, headache, runny nose or sore throat. Note for Cough : no preg concerns-no control has iud Encounter Diagnosis: SHORTNESS OF BREATH (786.05), Bronchitis,Acute (466.0) [facility] Office Visit On: 27-Dec-2012 7:59 Encounter Reason: Smoking Cessation - The patient has tried to quit once (succeeded with chantix about 7 years ago and then went back to smoking cause of events in my life and it was my own....). Associated symptoms do n End: 27-Dec-2012 8:59 ot include dry mouth, bad breath, stained teeth, nausea, dizziness, headaches or irritability. Note for Smoking cessation: she didt fill the chantix in 2009- she is going to see urologist for hematuri a- she feels ready to quit- her fiance quit smoking- she had no side effects of chantix before- she has beenworking out- we talked about what to do in place of habit and not replacing it with food- Encounter Diagnosis: Encounter for smoking cessation counseling (V65.42) [facility] Office Visit On: 08-Dec-2012 8:17 Encounter Reason: UTI - There has been no associated fever or low back pain. There is no medical history of diabetes, current , kidney stones or recurrent urinary tract infections. The patient denies the use of End: 08-Dec-2012 13:30 oral contraceptives, antibiotics, hormone replacement therapy or pyridium/uristat.Encounter Diagnosis: Hematuria (599.70) [facility] Office Visit On: 22-Nov-2012 9:26 Encounter Reason: Urinary problems - The onset of the urinary problems has been sudden and they have been occurring in a persistent pattern for 1 day. The course has been decreasing. The urinary problems are described as End: 22-Nov-2012 9:50 moderate. The urinary problem is characterized as frequency, urgency and painful urination (end of stream). There has been associated blood in urine.Encounter Diagnosis: ACUTE CYSTITIS (595.0), Hematuria (599.70) [facility] Office Visit On: 22-Jul-2012 7:05 Encounter Reason: UTI - The urinary symptoms are described as frequency and burning. The symptoms have been occurring for 3 days and have been constant. The urine is described as clear. There has been no associated feve End: 22-Jul-2012 7:40 r or low back pain. There is no medical history of diabetes, current , kidney stones or recurrent urinary tract infections. The patient denies the use of oral contraceptives, antibiotics, hormone replacement therapy or pyridium/uristat. Encounter Diagnosis: Dysuria (788.1), ACUTE CYSTITIS (595.0), Hematuria (599.7) [facility] Annotation/Addendum On: 29-Jun-2012 10:13 Encounter Diagnosis: Abdominal Pain,General (789.07) End: 29-Jun-2012 10:29 [facility] Office Visit On: 28-Jun-2012 15:34 Encounter Reason: Follow up tests - Diagnostic tests include other (labs). Date:. Follow up visit with no current symptoms. There is no family history of breast cancer, cardiovascular disease, cystic fibrosis, Down's syn End: 28-Jun-2012 16:08 drome, mental retardation or myocardial infarction before age 55.Encounter Diagnosis: Abdominal Pain,General (789.07) [facility] Office Visit On: 24-Jun-2012 8:51 Encounter Reason: Bowel problems - The onset of the bowel problems has been sudden and they have been occurring in a persistent pattern for months (4). The course has been increasing. The bowel problems are described as End: 24-Jun-2012 9:43 moderate. There has been associated abdominal cramps (severe), abdominal pain (whole abd ), bloating, constipation (alt), diarrhea (alt), difficulty with digestion, fatigue, flatulence, gastrointestinal upset (worse after eating) and nausea (with BM), while there has been no associated flank pain, low grade fever, rectal bleeding, sharp pain or shooting pain. Symptoms are aggravated by both liquids a nd solids and stress (has increased in past few months). Note for Bowel problems: occured in last 4 monthsTerrible pain with nausea and feeling like to pass out, with feeling defecate soft stool chews stride gum no recent travel feels abdominal bloating after meals stomach makes loud noisesEncounter Diagnosis: Abdominal Pain,General (789.07), Flatulence (787.3), SCREENING FOR COLON NEOPLASM (V76.41) [facility] Phone Encounter On: 08-Mar-2012 14:12 Encounter Diagnosis: Cervical Spasm (728.85) End: 08-Mar-2012 14:14 [facility] Office Visit On: 07-Mar-2012 8:13 Encounter Diagnosis: Cervical Spasm (728.85) End: 08-Mar-2012 9:40 [facility] Phone Encounter On: 21-Aug-2011 12:57 Encounter Diagnosis: tobacco abuse End: 21-Aug-2011 13:10 [facility] Office Visit On: 12-May-2011 9:11 Encounter Reason: Follow up Meds - The patient feels well with minor complaints (tolerating the cymbalta well, sees improvement since here last but wonders if needs more time or increased some because still occasionally End: 12-May-2011 9:34 gets anxiety.), has good energy level and is sleeping well. Patient has been compliant with instructions. Current medication use: no side effects and compliant with dosing regimen. Patient sleeps 6 hour s per night. Note for Follow up Meds: feeling better and tolerating pretty well - fatigue is better- not having frequent anxiety- actually only taking 20mg a day- so will try 30, [ADDITIONAL REASON] Follow up tests - Diagnostic tests include other (labs). Date: (03/27/11). Encounter Diagnosis: Anxiety (300.00), Abnormal TSH (794.5), Fatigue (780.79), tobacco abuse [facility] Office Visit On: 27-Mar-2011 8:54 Encounter Reason: Follow up for chronic medical issues - The patient feels well with minor complaints (stressed and tired- thinks its anxiety related- went off her cymbalta), has decreased energy level and is sleeping we End: 27-Mar-2011 13:50 ll. Patient has been non-compliant with instructions. Current medication use: no side effects and non-compliant with dosing regimen (stopped cymbalta). Patient sleeps 8 hours per night. Impact of diseas e: emotional impact-moderate. Nutrition: balanced diet, supplemental vitamins and low salt diet. The medical issues the patient is following up for include All identified problems below and other (tobac co use and pseudotumoral cerbri). Note for Follow up for chronic medical issues: alot of stress with 3 kids- running around alot- went off cymbalta because was doing well- dillon- she had tummy tuck in j an- but then had secondary infection- thought cymbalta made her tired- so went off but really still as tiredEncounter Diagnosis: Anxiety (300.00), Fatigue (780.79), Family history of ischemic heart disease (V17.3) [facility] Office Visit On: 16-Dec-2010 16:16 Encounter Reason: Elbow Pain - The onset of the elbow pain has been gradual following no specific incident and has been occurring in a persistent pattern for months. The course has been recurrent. The elbow pain is mild End: 16-Dec-2010 17:02 to moderate. The elbow pain is characterized as a sharp stabbing. The elbow pain is described as being located over the lateral elbow (right ). Aggravating factors include flexing elbow (at hs- when goe s to bed she keeps her elbow bent then wakes up and its hurting her so has to extend it to ease pain.). The pain was relieved by exercise (extending elbow). The symptoms have been associated with decrea sed range of motion, difficulty using extremity and difficulty turning doorknobs, while the symptoms have not been associated with numbness, tingling, swelling in the elbow, swelling in the arm, trauma, fever, chills or difficulty straightening arm. , [ADDITIONAL REASON] Lower back pain - The onset of the pain has been gradual and has been occurring in a persistent pattern for months. The course has been increasing. The pain is characterized as shoo ting. The pain is described as being located in the lower back and lumbar area. The pain radiates to the lateral aspect of right leg and lateral aspect of left leg. There are no precipitating factors. T he symptoms are aggravated by lying down (worse when wakes up in am then gets better as day goes on). The symptoms are relieved by exertion and stretching. The pain has been associated with hip pain, wh ile there has been no abdominal pain, chills, dysuria, fever, history of back surgery, history of disc prolapse, incontinence of stool, incontinence of urine, leg weakness, trauma or vaginal discharge. [facility] Phone Encounter On: 03-Jun-2010 13:31 Encounter Diagnosis: tobacco abuse End: 03-Jun-2010 13:33 [facility] Office Visit On: 02-Jun-2010 11:18 Encounter Reason: Follow up for chronic medical issues - The patient feels well with minor complaints (talk about smoking cessation- used chantix previously and it worked but she later then went back to smoking.), has go End: 02-Jun-2010 11:58 od energy level and is sleeping well. Patient has been non-compliant with instructions. Current medication use: no side effects (no current meds). Patient sleeps 5 hours per night. Nutrition: balanced d iet, supplemental vitamins and low salt diet. The medical issues the patient is following up for include All identified problems below and other (tobacco use and pseudotumoral cerbri). weight : (home- 1 51). Note for Follow up for chronic medical issues: she had quit smoking for 2 years - then restarted after significant stressors- - and mom of 3 boys- - she has been doing counesling a nd that has help-ed- she has lost alot of weight and has maintained- she works out daily - she is afraid to take meds for anxiety- she did well with chantix and no side effects - apparently her loan underwriter did thyroid lab and was off and was supposed to have followupEncounter Diagnosis: tobacco abuse, Family history of ischemic heart disease (V17.3), Anxiety (300.00), Abnormal TSH (794.5), screening [facility] Office Visit On: 24-Sep-2008 15:40 Encounter Reason: Cough - The onset of the cough has been sudden and 2 weeks ago. The cough is characterized as productive of mucopurulent sputum. The amount of sputum produced is less than a half a cup per day. The coug End: 24-Sep-2008 23:09 h occurs all the time. The symptoms are aggravated by supine posture and meals. The symptoms have been associated with fever ,headache ,hoarseness ,runny nose ,sore throat and wheezing. the color of the sputum is greenish. Note for Cough: no hx of asthma - no preg concerns on control-- she has been wheezing- temp 102 initiallyEncounter Diagnosis: Pneumonia due to other specified bacteria (482.89), tobacco abuse [facility] Historical Summary On: 13-Sep-2006 15:52 [facility] End: 13-Sep-2006 15:54 Office Visit On: 13-Sep-2006 12:04 Encounter Reason: Fatigue - The onset of the fatigue has been sudden and has been occurring in a persistent pattern for 2 days. The course has been constant. The fatigue interferes with work/school and interferes with no End: 13-Sep-2006 12:43 rmal daily activities (feels very run down, difficult to get out of bed ). The symptoms have been associated with excessive sleeping ,headache and sore throat. Note for Fatigue: Has notice a sore thro at x 2days and it is worsening. Family has been sick- healthly.Encounter Diagnosis: ACUTE PHARYNGITIS (462.) [facility] Payers Joey NOLAND/Feli Thomson; a guarantor
== END ==
PROVIDERS: Family Provider Internal Medicine; PCP Internal Medicine; Referring Provider Internal Medicine; Visit Provider Internal Medicine
DX: E34.9 Endocrine disorder, unspecified (principal)
CPT/HCPCS: 71046

== ENCOUNTER → 2018-12-12 | Outpatient (CLI) | payer BC, SELFPAY ==
[2016-05-25 06:18] VITALS: BMI 27.6
[2018-12-12 17:48] LABS: Absolute Lymphocyte Count 2.85 X10^3/ul (0.83-4.51); Absolute Neutrophil Count 4.9 X10^3/uL (2.0-7.7); Basophil# 0.05 X10^3/uL; Basophil% 0.6 % (0-1); Eosinophil# 0.33 X10^3/uL; Eosinophils% 3.7 % (0-5); Hematocrit 41.9 % (37-47); Hemoglobin 13.9 g/dl (12.0-15.0); Lymphocyte # 2.85 X10^3/ul (4.0); Lymphocyte % 31.6 % (19-41); Mean Corp Hgb Conc 33.2 g/gl (32-36); Mean Corpuscular Hgb 31.5 pg (27.0-32.0); Mean Platelet Vol. 10.1 fl (6.2-12.0); Monocyte# 0.85 X10^3/uL; Monocyte% 9.4 % (0-10); Neutrophil # 4.92 X10^3/uL (2.7-7.7); Neutrophil % 54.6 % (47-70); Platelet Count 245 K/mm3 (150-450); RBC Distribution Width CV 13.6 % (11.6-14.6); RBC Distribution Width SD 46.9 fl (35.1-43.9); Red Blood Count 4.41 M/mm3 (4.2-5.4)
[2018-12-12 17:54] LABS: POSITIVE COUNT NO; POSITIVE DIFFERENTIAL NO; POSITIVE MORPHOLOGY NO
[2018-12-12 18:12] LABS: ALB/GLOB Ratio 1.2 RATIO (0.9-2.4); AST(SGOT) 19 U/L (15-37); Alanine Aminotransfer ALT/SGPT 26 U/L (13-56); Albumin, Serum 3.8 g/dL (3.2-5.0); Alkaline Phosphatase 68 U/L (45-117); Anion Gap 4 (5-15); BUN 17 mg/dL (7-18); BUN/Creat Ratio 19.2 RATIO (10-20); CRP < 2.90 mg/L (0.0-3.0); Calcium,Total 9.1 mg/dL (8.5-10.1); Chloride 106 mmol/L (98-107); Creatinine, Serum 0.88 mg/dL (0.55-1.02); EST Glomerular Filtration Rate 74 mL/min (>60); Est Glom Filt Rate - Afr Amer 89 mL/min (>60); Globulin 3.2 g/dL (2.2-4.2); Glucose 72 mg/dL (74-106); Potassium 3.7 mmol/L (3.5-5.1); Sodium Level 141 mmol/L (136-145)
[2018-12-12 18:32] LABS: Erythrocyte Sedimentation Rate 5 mm/hr (0-20)
== END | disposition home or self-care (01) ==
LOC: MTLAB 16:42
PROVIDERS: Family Provider Internal Medicine; PCP Internal Medicine; Referring Provider Nurse Practitioner; Visit Provider Nurse Practitioner
DX: D72.829 Elevated white blood cell count, unspecified (principal); R31.9 Hematuria, unspecified
CPT/HCPCS: 36415; 80053; 85025; 85652; 86140; 87086; 87088; 87186

== ENCOUNTER → 2018-12-13 | Outpatient (CLI) | payer BC, SELFPAY ==
--- NOTE | 2018-12-13 07:43 | BI_ITS ---
MAMMOGRAPHY - BILATERAL SCREENING REASON FOR EXAM: Female, 43 years old. Routine annual screening examination. PERTINENT HISTORY: Aunt with breast cancer. Occasional breast tenderness. TECHNIQUE: Digital bilateral breast aster (3D mammographic acquisition) in the CC and MLO projections. 2-D mediolateral oblique (MLO) and craniocaudad (CC) views of both breasts were obtained. CAD: Full Field Digital Mammography with Computer Added Detection was performed. COMPARISON: Comparison is made with prior study dated November 05, 2017. FINDINGS: Breast Composition: The breasts are heterogeneously dense, which may obscure small masses. There are no dominant masses or suspicious calcifications. No other significant abnormalities are identified. There has been no significant change since the prior study. BI/SCREENING MAMM (CAD), BILAT IMPRESSION: Stable bilateral screening mammogram. Yearly follow-up mammogram recommended. (A) ASSESSMENT CATEGORY: BIRADS Category 1: Negative. A letter regarding these results will be sent to the patient by the facility within 30 days. Approximately 10% of breast cancers are not detected by mammography. A normal mammogram should not delay biopsy of a clinically suspicious abnormality. [id number] Electronically Signed: Siva Mcfarlane, at 10:06 EDT , Service support ,
== END | disposition home or self-care (01) ==
PROVIDERS: Family Provider Internal Medicine; PCP Internal Medicine; Referring Provider Obstetrics & Gynecology; Visit Provider Obstetrics & Gynecology
DX: Z12.31 Encounter for screening mammogram for malignant neoplasm of breast (principal)
CPT/HCPCS: 77063; 77067

== ENCOUNTER → 2018-12-16 | Outpatient (CLI) | payer BC, SELFPAY ==
[2016-05-25 06:18] VITALS: BMI 27.6
--- NOTE | 2018-12-16 08:36 | US_ITS ---
STUDY: ABDOMINAL ULTRASOUND REASON FOR EXAM: Female, 43 years old. Pain TECHNIQUE: Transabdominal ultrasound was performed with real-time and static paez scale imaging. TECHNICAL QUALITY: Adequate. COMPARISON: Ultrasound abdomen July 23, 2014 FINDINGS: Liver: The liver measures 14 cm. There is normal echogenicity of the liver. The bile ducts are within normal limits. There is hepatic color flow. The direction of portal flow is hepatopetal. There is no demonstrated mass lesion. Gallbladder: Removed. Common Bile Duct (C.B.D.): The common bile duct measures 4 mm. Pancreas: Normal size of the head, body and tail of the pancreas. There is normal echogenicity of the pancreas. There is no demonstrated pancreatic mass or cyst. Spleen: Normal size of the spleen. The spleen measures 7 cm. Right Kidney: The right kidney measures 11 cm. Normal renal cortex. There is no demonstrated renal mass or cyst. There is no right hydronephrosis. Left Kidney: The left kidney measures 11 cm. Normal renal cortex. There is no demonstrated renal mass or cyst. There is no left hydronephrosis. Aorta: The aorta is normal in caliber. I.V.C.: The IVC is patent. There is no ascites. US/Abdomen Complete IMPRESSION: Normal abdominal ultrasound examination. Status post cholecystectomy. Electronically Signed: Joey Benavides, at 18:55 EDT Tel , Service support ,
== END | disposition home or self-care (01) ==
LOC: US 08:31
PROVIDERS: Family Provider Internal Medicine; PCP Internal Medicine; Referring Provider Nurse Practitioner; Visit Provider Nurse Practitioner
DX: R10.9 Unspecified abdominal pain (principal)
CPT/HCPCS: 76700

== ENCOUNTER → 2018-12-20 | Outpatient (CLI) | payer BC, SELFPAY ==
--- NOTE | 2018-12-20 08:41 | CT_ITS ---
STUDY: CT ABDOMEN AND PELVIS WITH AND WITHOUT CONTRAST REASON FOR EXAM: Female, 43 years old. 2 month history of gross hematuria. History of kidney stones. RADIATION DOSAGE (If Supplied By Facility): CTDIvol = ( 11.1 ) mGy, DLP = ( 931.78 ) mGycm TECHNIQUE: Transaxial images were obtained from the dome of the diaphragm to the symphysis pubis without oral contrast. 100 IV Isovue 300 was administered. Sagittal and coronal images were reconstructed. Individualized dose optimization techniques were used for this CT. COMPARISON: Comparison is made with prior study dated December 17, 2015. FINDINGS: Minimal degree of increased markings at the lung bases slightly more prominent on the right side suggests a mild bibasilar atelectasis. The visualized portions of the heart are within normal limits. There is decreased attenuation of the liver consistent with steatosis. Stable appearance of the small cysts seen in both lobes of the liver. Nonvisualization of the gallbladder most likely secondary to prior cholecystectomy. Normal spleen. Normal pancreas. Normal bilateral adrenal glands. A punctate calculus is seen in the lower pole calyx of the right kidney. Normal left kidney. Normal visualized stomach. Normal small intestine. Normal colon. The appendix is visualized and appears normal. Normal abdominal aorta. Normal inferior vena cava. Normal retroperitoneum. Normal urinary bladder. There is enlargement and tortuosity of the left gonadal vein. This empties into the left renal vein. Normal abdominal wall. There are degenerative changes at the L5-S1 level. CT/CT Abd/Pelvis W/WO Contrast IMPRESSION: Nonobstructive tiny calculus in the lower pole calyx of the right kidney. Multiple hepatic cysts. Enlargement and tortuosity of the left gonadal vein. Electronically Signed: Siva Mcfarlnae, at 14:43 EDT , Service support ,
== END | disposition home or self-care (01) ==
LOC: CT 08:40
PROVIDERS: Family Provider Internal Medicine; PCP Internal Medicine; Referring Provider Urology; Visit Provider Urology
DX: R31.0 Gross hematuria (principal)
CPT/HCPCS: 74178; Q9967

== ENCOUNTER 2018-12-27 11:01 | Day surgery (SDC) | payer BC, SELFPAY ==
[2018-12-27 11:15] VITALS: BP 109/86; PULSE 60; RESP 16; TEMP 37.1; O2SAT 100; BMI 28.3
[2018-12-27] MEDS: Cefazolin 2 GM in 0.9% Normal Saline 100 ML IV (12:09)
[2018-12-27 12:40] VITALS: BP 109/86; BP 83/52; PULSE 53; RESP 14; TEMP 36.2; O2SAT 98
--- NOTE | 2018-12-27 12:40 | DCINST_ITS ---
Discharge Diet: No Restrictions Discharge Activity: May not drive while taking narcotic pain medications., May Shower May resume sexual activity in: 1 week Call your doctor if you observe: Fever of 101 or Higher, Inability to urinate, Shortness of breath, Chest pain, Calf discomfort, Uncontrolled pain Allergies/Adverse Reactions: Allergies No Known Allergies Allergy (Verified 12/23/18 10:04) Medications to take at Discharge Adrenal Complex 1 cap PO DAILY 12/23/18 Biotin 20,000 mcg PO DAILY 12/23/18 Cholecalciferol (VIT D3) [Vitamin D3] 1,000 unit PO DAILY 12/23/18 Garlic 1,000 mg PO DAILY 12/23/18 Hydrocodone Bitart/Apap 5-325 [[place] 5MG-325MG] 1 tab PO Q4H PRN PRN 7 Days #10 tab 12/27/18 Phenazopyridine HCl [Pyridium] 200 mg PO TID PRN PRN 7 Days #30 tab 12/27/18 Smz/Tmp Ds [Bactrim Ds] 1 tab PO BID 3 Days #6 tab 12/27/18 The following prescriptions were given: Hydrocodone Bitart/Apap 5-325 [[place] 5MG-325MG] 1 tab PO Q4H PRN PRN 7 Days #10 tab PRN Reason: Pain Phenazopyridine HCl [Pyridium] 200 mg PO TID PRN PRN 7 Days #30 tab PRN Reason: Bladder Spasms Smz/Tmp Ds [Bactrim Ds] 1 tab PO BID 3 Days #6 tab Primary Care Physician: Ana Lilia Almaraz DO [Primary Care Provider] - Test Results: Test results from this visit will be discussed in further detail at your follow- up appointment, if applicable. Please Follow Up With: Rachel Bernard MD When: 1 week, call office for appt. Proposed Discharge Date: 12/27/18
--- NOTE | 2018-12-27 12:40 | PCM.OPRPT ---
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 Type of Anesthesia:: MAC Specimen's removed: bladder biopsy, 2 small Estimated Blood Loss (mL): 3cc Description of Procedure: The patient is a 43-year-old female sent to the office for hematuria. On evaluation with cystoscopy in the office a small bladder lesion approximately 4 to 5 mm in size was identified in the area of the trigone. Informed consent was obtained and we scheduled cystoscopy with biopsy under anesthesia. The patient was taken to the operating room placed on the operating room table. Anesthesia monitored the head, neck, airway, IV access and vital signs throughout the case. Once anesthesia was appropriately administered the patient was placed into dorsal lithotomy position was prepped and draped in usual sterile fashion. A cystourethroscopy was then performed revealing the same lesion and no others. This lesion was removed with 2 bites with the biopsy forceps and the area was fulgurated for hemostatic control and tissue treatment. Her bladder was emptied the scope was removed and the case was terminated. The patient was taken to the recovery room in good condition. There were no complications during this procedure. Grafts/Implants Used: none - Complications none - Admit VTE Documentation VTE Present on Admission: Yes VTE Mechan Device Prophylaxis: SCD's VTE Pharm Prophylaxis ordered?: No Reason prophylaxis not ordered:: Treatment Not Indicated
[2018-12-27 12:45] VITALS: BP 109/86; BP 83/52; PULSE 51; RESP 16; O2SAT 98
--- NOTE | 2018-12-27 12:45 | BLA_PTH ---
PATIENT: DIEGO THOMSON LOC: [facility] [place] U#:[id number] AGE/SX: 43/F ROOM: RE12/27/[address]: Dr. Rachel Bernard MD : 1975 BED: DIS: 12/27/2018 SPEC #: [id number] RECD: 12/27/18 15:25 STATUS: MIRNA LILLI #: [id number] BLOSSOM: 12/27/18 12:[address]: Rachel Bernard DEPT: SURGICAL PATHOLOGY RECD BY: Gokul Dewey ENTERED: 12/28/18 10:43 SP TYPE: BLADDER BX OTHR DR: Dr. Ana Lilia Almaraz DO Tissues: Urinary bladder, NOS Procedures: Surgery Specimen Level IV HEADER OPERATION: Cysto, biopsy, fulguration, bladder tumor PRE-OP DIAGNOSIS: Neoplasm of bladder; gross hematuria; UTI; stress incontinence TISSUE SUBMITTED: Bladder biopsy MICROSCOPIC DIAGNOSIS Urinary bladder, biopsy: Chronic polypoid cystitis, focal. No evidence of malignancy. AM:alice 12/29/18 MICROSCOPIC DESCRIPTION Slides are reviewed. GROSS DESCRIPTION Received in fixative is one container labeled with the patient's name and designated bladder biopsy. The specimen consists of two irregular fragments of light geiger soft tissue that in aggregate measure 0.2 x 0.2 x 0.1 cm. The specimen is totally submitted in one cassette. / AM:alice 12/28/18 TC:3 CPT: 25612
[2018-12-27 12:50] VITALS: BP 109/86; BP 87/57; PULSE 55; RESP 14; O2SAT 94
[2018-12-27 12:55] VITALS: BP 109/86; BP 91/65; PULSE 52; RESP 14; TEMP 36.2; O2SAT 95
[2018-12-27 13:46] VITALS: BP 109/86
== END 2018-12-27 13:47 | disposition home or self-care (01) ==
LOC: SDC 11:03 → AC 11:04
PROVIDERS: Family Provider Internal Medicine; PCP Internal Medicine; Referring Provider Urology; Visit Provider Urology
PROC: 0TBB8ZX Excision of Bladder, Via Natural or Artificial Opening Endoscopic, Diagnostic (ICD-10-PCS; principal; 2018-12-27 12:35)
DX: N30.20 Other chronic cystitis without hematuria (principal); D41.4 Neoplasm of uncertain behavior of bladder; F17.200 Nicotine dependence, unspecified, uncomplicated
CPT/HCPCS: 52234; 88305; 93005; J7120; J2405

== ENCOUNTER → 2019-11-03 | Outpatient (CLI) | payer BC, SELFPAY ==
[2019-11-03 17:10] LABS: Absolute Neutrophil Count 6.4 X10^3/uL (2.0-7.7); Basophil# 0.06 X10^3/uL; Basophil% 0.6 % (0-1); Eosinophil# 0.47 X10^3/uL; Eosinophils% 4.3 % (0-5); Hematocrit 42.1 % (37-47); Hemoglobin 13.9 g/dL (12.0-15.0); Lymphocyte % 26.6 % (19-41); Mean Corpuscular Hgb 31.7 pg (27.0-32.0); Mean Corpuscular Volume 96.1 fL (81-99); Mean Platelet Vol. 9.9 fl (6.2-12.0); Monocyte# 1.06 X10^3/uL; Monocyte% 9.7 % (0-10); NRBC Flagged by Analyzer 0 % (0-5); Neutrophil # 6.38 X10^3/uL (2.7-7.7); Neutrophil % 58.5 % (47-70); Platelet Count 258 K/mm3 (150-450); RBC Distribution Width CV 13.8 % (11.6-14.6); RBC Distribution Width SD 49.1 fl (35.1-43.9); Red Blood Count 4.38 M/mm3 (4.2-5.4); White Blood Count 10.9 K/mm3 (4.4-11.0)
[2019-11-03 17:54] LABS: ALB/GLOB Ratio 1.2 RATIO (0.9-2.4); AST(SGOT) 19 U/L (15-37); Alanine Aminotransfer ALT/SGPT 20 U/L (13-56); Albumin, Serum 3.8 g/dL (3.2-5.0); Alkaline Phosphatase 60 U/L (45-117); Anion Gap 5 (5-15); BUN 11 mg/dL (7-18); BUN/Creat Ratio 14.6 RATIO (10-20); Calcium,Total 8.6 mg/dL (8.5-10.1); Chloride 104 mmol/L (98-107); Creatinine, Serum 0.75 mg/dL (0.55-1.02); EST Glomerular Filtration Rate 88 mL/min (>60); Est Glom Filt Rate - Afr Amer 107 mL/min (>60); Globulin 3.3 g/dL (2.2-4.2); Glucose 90 mg/dL (74-106); Potassium 3.6 mmol/L (3.5-5.1); Protein, Total 7.1 g/dL (6.4-8.2); Sodium Level 139 mmol/L (136-145)
== END | disposition home or self-care (01) ==
LOC: LABSPEC 16:50
PROVIDERS: PCP Internal Medicine; Referring Provider Internal Medicine; Visit Provider Internal Medicine
DX: R19.7 Diarrhea, unspecified (principal)
CPT/HCPCS: 36415; 80053; 85025; 87493

== ENCOUNTER → 2019-12-18 | Outpatient (CLI) | payer BC, SELFPAY ==
--- NOTE | 2019-12-18 08:37 | BI_ITS ---
MAMMOGRAPHY - BILATERAL SCREENING REASON FOR EXAM: Female, 44 years old. Routine annual screening examination. PERTINENT HISTORY: Aunt with breast cancer. Occasional bilateral breast tenderness. TECHNIQUE: Digital bilateral breast jermaine (3D mammographic acquisition) in the CC and MLO projections. 2-D mediolateral oblique (MLO) and craniocaudad (CC) views of both breasts were obtained. CAD: Full Field Digital Mammography with Computer Added Detection was performed. COMPARISON: Comparison is made with prior examination dated December 13, 2018 and November 05, 2017. FINDINGS: Breast Composition: The breasts are heterogeneously dense, which may obscure small masses. There are no dominant masses or suspicious calcifications. No other significant abnormalities are identified. There has been no significant change since the prior study. BI/SCREEN MAMM (CAD) W/JERMAINE BILAT IMPRESSION: Stable bilateral screening mammogram. Yearly follow-up mammogram recommended. (A) ASSESSMENT CATEGORY: BIRADS Category 1: Negative. A letter regarding these results will be sent to the patient by the facility within 30 days. Approximately 10% of breast cancers are not detected by mammography. A normal mammogram should not delay biopsy of a clinically suspicious abnormality. [id number] Electronically Signed: Siva Mcfarlane, at 9:54 EDT , Service support ,
== END | disposition home or self-care (01) ==
LOC: OPBI 08:34
PROVIDERS: PCP Internal Medicine; Visit Provider Internal Medicine
DX: Z12.31 Encounter for screening mammogram for malignant neoplasm of breast (principal)
CPT/HCPCS: 77063; 77067

== ENCOUNTER 2020-06-19 08:00 | Outpatient (RCR) | payer BC, SELFPAY ==
--- NOTE | 2020-06-19 09:50 | BH.NA ---
Physical Data - Vital Signs Pulse Rate: 61 Blood Pressure: 133/92 - Height/Weight Height: 1.61 m Weight:: 76.657 kg Weight in Pounds: 169.0 lbs Current Medication Compliance - Medication Compliance Do you take your medication as prescribed?: Yes Nutritional History - Appetite Nutritional Instructions:: If client shows signs of a swallowing problem, weight change of 10 pounds or more in the last month, or is on a diabetic diet, the physician will review and request a dietitian consult, as appropriate. All unintentional weight loss will be referred to the physician for decision on need for dietitian consult. Describe your appetite:: Fair Additional nutritional information:: Client states she has gained 25lbs in the last year. Client talks about being unhappy with weight gain because she previously used to work out a lot to stay fit. Functional Assessment - Sleep Pattern Describe any problems with sleeping: Client states she sleeps about 4 hours per night. Client states pain in her shoulders/elbow due to arthritis cause her lack of sleep. Discussed with client her high caffiene intake also probably causes her lack of sleep. Client voices understanding stating I know I need to drink less, but I feel like I need it to function. - Activities Motor Activity:: Functional Sensory/Communication Assess - Communication Problems Do you have difficulty understanding what people are saying?: No Medical Problems/History - Neurological Conditions Neurological: Other (See comments) Comments:: pseudotumoral cerbri - Genitourinary Conditions Genitourinary: Other (See comments) Comments:: kidney stones, hematuria, bladder tumor - Gastrointestinal Conditions Gastrointestinal: Other (See comments) - colitis - Musculoskeletal Conditions Musculoskeletal: Arthritis, Other (See comments) Comments:: degenerative disc disease - Cancer History Comments:: psoratic arthritis, psorasis, vitamin D deficiency - Pain Assessment Do you have acute or chronic pain?: Yes Surgical History - Surgical History Have you had any surgeries? If so, list type and date:: Yes - hysterectomy, tubal ligation, bladder tumor removal Substance Abuse - Substance Abuse Please describe substance abuse in the last 30 days:: Client denies alcohol or drug use. Client has smoked off and on for years, stating she currently is smoking 1 pack per day. Client reports excessive caffiene use, stating she drinks coffee, Red Bull and Diet Coke all day everyday and minimal water. Discussed effects of caffiene with client and she voices understanding/awareness, stating I know I should not drink so much. I know it's not healthy for me, but I feel like I need it. Mental Status Summary - Mental Status Significant Findings/Observations on Appearance and Mood:: Client is alert and oriented x 4. Client is casually groomed with good hygiene. Client is wearing a mask due to COVID19 pandemic. Client's voice normal rate and volume. Client appears mildly depressed and moderately anxious during assessment. Client makes logical associations with normal processing. Client denies delusions/hallucinations. Client reports fleeting suicidal ideations, denying SI at this time. Suicide Assessment - Suicidal Ideation Are you currently or have you been suicidal in the past?: Yes - denies SI at this time Suicidal Intentional Rating Scale (SIRS): Suicidal thoughts (past) Physician Notification: If Active suicidal thoughts/Will not contract for safety is checked, contact physician and document in the Physician Notification section below. Past Psychiatric History - MH Treatment Hx Past Psychiatric Medications:: Client states her PCP has prescribed her medications over the years but she either did not start them or took them for a day and stopped, stating she does not like the idea of being on medication. Age of first mental health symptoms: Client states she was diagnosed with anxiety and depression in her 30's and recently diagnosed with PTSD in the last few years. Describe (age, circumstance, etc) any past hospitalizations: None. Current providers for mental health treatment (counselor, psychiatrist, assistant case manager, etc.): counseling at [facility] Fall Risk Assessment - Age Age: Less than 60 - Mental Status Mental Status: Willing & able to ask for assistance when needed - Physical Status Physical Status: No problems - Impairments Impairments: None - Elimination Elimination: Continent AND independent - Gait or Balance Gait or Balance: Walks independently - Hx of Falls History of falls in the past 6 months: No known history - Medications/Substances Psychotropics:: Antidepressants Medications/substances used within the past 24 hours or ordered to administer: 1-2 of the medications/substances listed above - Total Score Total Points:: 1 RN Summary of Impressions - Impressions Recommendations: Include psychiatric and medical issues, treatment planning recommendations, and discharge planning needs. Impressions: Psychiatric Issues: major depressive disorder, recurrent, severe without psychosis; generalized anxiety disorder; PTSD - Level of Care How do the client's current symptoms and functional deficits support need for this level of care?: Client reports her mental health symptoms worsening over the last couple of years. Client states she has been on FMLA from work for the last several months due to mental health. Client reports going to the ER with suicidal ideations in April 2020, only to leave the hospital after she felt the staff were not compassionate and helpful after telling crisis what they wanted to hear to let me leave. Client reports SI are less at this time, still reporting fleeting SI at times. Client states Sometimes I just get in a really dark place and it's hard to get out. Client reports recently starting medications for depression from her PCP but reporting over the years she has been very reluctant to be on medication because she doesn't like feeling like a zombie. Client reports decreased concentration, sense of failure, decreased energy, anhedonia, isoloation, and loss of interest. Client reports work as a stressor, stating There is no way I could do my job with how I'm feeling right now. 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 IOP will promote gains and prevent further decompensation while providing social support and skills training.
[2020-06-19 11:49] VITALS: BP 133/92; PULSE 61
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
--- NOTE | 2020-06-19 13:05 | BH.PSY.EVA_ITS ---
Initial Treatment Plan - Patient Information Visit Information: ADMISSION DATE: EXPECTED LOS: 4-6 weeks - Problems/Symptoms Problem #1:: Depression Symptom:: Sadness, hopelessness, guilt, anhedonia, biological disruption of sle ep, decreased concentraton, suicidal ideation Problem #2:: Anxiety Symptom:: Rumination, nightmares, flashbacks, avoidance
--- NOTE | 2020-06-19 15:23 | BH.COMM_ITS ---
Communication Note - Communication with Client Communication Note: Met with patient to complete initial paperwork. No sig nificant changes since pre-admission screening. Completed [place] Suicide Risk Screening. Based on client's scores, client would be a moderate risk for suicide, but client does not present as imminent danger to herself. Fleeing SI which she feels like she can control, but client has these thoughts 2-5 times a week which is more than client has experienced in her lifetime. Client reports history of one self-aborted suicide attempt on April 25, 2020. Client went to the emergency room (drove herself) because she had a self?interrupted suicide attempt where she took an overdose but then spit out the pills. Client denies any active SI or intent since April. However, client still endorses passive wishes of . Denies access to weapons at home. Reports ability to keep herself safe today. Client Protective factors. Future-oriented.
--- NOTE | 2020-06-24 09:00 | BH.SGPN.GN ---
This psychotherapy group was provided via telehealth using two-way, real-time interactive telecommunication technology between the patients and the provider. The interactive telecommunication technology included audio and video. The patient was offered telemedicine as an option for care delivery during the COVID-19 pandemic and consented to this option. Patient location: [place] Provider located at [facility] Behaviors/Verbalizations/Mental Status: []Client alert and oriented, casually dressed. Eye contact good. Motor activity appropriate. Speech within normal limits. Affect full, mood anxious. Thoughts linear, logical, no signs of hallucinations or delusions. Reviewed client?s symptom tracker, no risk or plan for suicide ideation as of 06/24/20. Client Response/Progress/Benefit: []Client responded well to session, engaged and participated throughout discussion. Client presented anxious as it was her first day of IOP. Client reported she has been stressed with her job and endorses sadness, anxiety, depression, and feeling overwhelmed. Client shared she hopes to learn healthy coping skills to ?get back to her better self.? Client said she has difficulty being vulnerable which results in isolation and increased feelings of helplessness. Client benefited from group as she gained positive feedback from other group members and progress was made as she stated she will begin journaling her thoughts and feelings to share at IOP. Client will continue IOP to decrease depression and anxiety symptoms and increase the use of healthy coping skills to improve daily functioning. Narrative Note: []
--- NOTE | 2020-06-24 10:05 | BH.SGPN.GN ---
This psychotherapy group was provided via telehealth using two-way, real-time interactive telecommunication technology between the patients and the provider. The interactive telecommunication technology included audio and video. The patient was offered telemedicine as an option for care delivery during the COVID-19 pandemic and consented to this option. Patient location: [place] Provider located at [facility] Behaviors/Verbalizations/Mental Status: []Client alert and oriented, casually dressed and appropriately groomed. Eye contact fair. Motor activity restless-moving around her house. Speech within normal limits. Affect constricted, mood depressed and anxious. Thoughts linear, logical, no signs of hallucinations or delusions. Client Response/Progress/Benefit: []Client receptive to session, engaged participant and listened attentively to peers. contributed as the group brainstormed the positive and negative aspects of stress on physical and mental health. Client shared physically stress causes stomach issues, tingling, and headaches. Client identified stressors in her ?stress jar? which included: accepting that client cannot change the past, adjusting to a new normal, guilt and shame, and struggling with forgiveness. Seemed to benefit from increased awareness of personal stressors and understanding impact of stress of the mind and body. Client?s first day of IOP. Will continue tx to prevent decompensation, reduce negative thinking, and learn healthy coping skills. Narrative Note: []
--- NOTE | 2020-06-24 11:11 | BH.SGPN.GN ---
This psychotherapy group was provided via telehealth using two-way, real-time interactive telecommunication technology between the patients and the provider. The interactive telecommunication technology included audio and video. The patient was offered telemedicine as an option for care delivery during the COVID-19 pandemic and consented to this option. Patient location: [place] Provider located at [facility] Behaviors/Verbalizations/Mental Status: [] Client alert and oriented, casually dressed and groomed. Eye contact good. Motor activity appropriate. Speech within normal limits. Affect congruent, mood depressed and anxious. Thoughts linear, logical, no signs of delusions or hallucinations. Client Response/Progress/Benefit: []Client engaged in session AEB listening attentively to others, providing input, and taking notes throughout. Client remained attentive during discussion about the 4 A's of managing stress and discussed connecting with the various benefits of each. Identified wanting to improve her ability to use acceptance and adapting a healthier mindset when it comes to her marriage. Discussed plans to practice components of self-compassion by reminding herself that she cannot change her past or the mistakes that she has made and instead focus on finding ways to forgive herself and continue to move forward. Client seemed to benefit from increased awareness of the impact of stress on mental health and increasing repertoire of stress management strategies. Progress limited as it was clients first day in the IOP program. Will continue IOP tx to promote use of healthy coping skills, improve symptom management, as well as prevent decompensation. Narrative Note: []
--- NOTE | 2020-06-25 09:02 | BH.SGPN.GN ---
This psychotherapy group was provided via telehealth using two-way, real-time interactive telecommunication technology between the patients and the provider.?The interactive telecommunication technology included audio and video.? ?The patient was offered telemedicine as an option for care delivery during the COVID-19 pandemic and consented to this option. ?Patient location: [place] ?Provider located at [facility] Behaviors/Verbalizations/Mental Status: []Client alert and oriented, neatly dressed and groomed. Eye contact good. Motor activity appropriate. Speech within normal limits. Affect flat, mood dysthymic. Thoughts linear, logical, no signs of hallucinations or delusions. Reviewed client?s symptom tracker, no risk for suicidal ideation, plan, or intent as of 06/25/20. Client Response/Progress/Benefit: []Client responded well to session, often giving supportive feedback. Client reports feeling burdened and heavy this morning. Client stated the last two years have been exceptionally difficult for client and client has a lot of shame and guilt related to past mistakes. Client reported she is determined to get better and be vulnerable. Client shared her win today is that she worked out this morning and took a shower before group which helped client feel better. Appeared to benefit from reflecting on her use of coping skills this morning. Will continue IOP tx to prevent decompensation, improve healthy coping skills, and reduce distorted thinking. Narrative Note: []
--- NOTE | 2020-06-26 10:20 | BH.SGPN.GN ---
This psychotherapy group was provided via telehealth using two-way, real-time interactive telecommunication technology between the patients and the provider. The interactive telecommunication technology included audio and video. The patient was offered telemedicine as an option for care delivery during the COVID-19 pandemic and consented to this option. Patient location: [place] Provider located at [facility] Behaviors/Verbalizations/Mental Status: []Client alert and oriented, casually dressed and groomed. Eye contact good. Motor activity appropriate. Speech within normal limits. Affect congruent, mood depressed. Thoughts linear, logical, no signs of hallucinations or delusions. Client Response/Progress/Benefit: [] Client active participant in group AEB providing input throughout, as well as listening attentively to peers. Group worked together to identify barriers to taking action in their lives which included fear of being seen as broken, lack of resources, comfort zone, fear of the unknown, feeling out of control, and self-stigma. Expressed connecting with fear of judgement from self and others. Group identified that taking action can help benefit mental health by: helping to better engage in daily living, feeling more ?authentic?, setting a healthy example for others, and improving self-confidence. Client identified personal areas to take back control over in life to include: putting others 1st, unwanted self-discovery, and lack of self-forgiveness. Client shared that if she could take control over these things, she would feel more self-confident and capable of managing mental health sx. Benefited from increased awareness of personal areas client wants to improve and benefits to taking action towards mental wellness. Will continue IOP tx to prevent decompensation, continue to promote application of skills for reduced depression, and increase use of internal coping skills. Narrative Note: []
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
--- NOTE | 2020-07-01 10:20 | BH.SGPN.GN ---
Addendum entered and electronically signed by Kimberly Barker LSW 07/01/20 14:06: This psychotherapy group was provided via telehealth using two-way, real-time interactive telecommunication technology between the patients and the provider. The interactive telecommunication technology included audio and video. The patient was offered telemedicine as an option for care delivery during the COVID-19 pandemic and consented to this option. Patient location: [place] Provider located at [facility] Original Note: Behaviors/Verbalizations/Mental Status: []Client alert and oriented, casually dressed. Eye contact good. Motor activity appropriate. Speech within normal limits. Affect congruent, mood anxious, depressed. Thoughts linear, logical, no signs of hallucinations or delusions. Client Response/Progress/Benefit: []Client engaged throughout session AEB providing some input and examples, nodding when connecting with others, as well as taking notes throughout. Connected with discussion on crisis development and how coping with external crises by using unhealthy coping skills could result in a personal crisis. Client shared that crisis can often lead to trying to over control a situation or having the opposite ?don?t care? kind of attitude. Group reflected on the importance of having awareness of personal warning signs in order to prevent reaching crisis point. Group identified potential warning signs for crisis and client completed the personal warning signs worksheet. Client identified personal crisis warning signs to include: feeling emotionally overwhelmed, reduced patience, and decreased concentration. Client benefited by increasing awareness of what leads to crisis and personal warning signs. Progress noted in self-report of improved insight and beginning to work on implementing more self-care skills, including positive self-talk. Will continue IOP tx to increase healthy coping, improve mood stability and reduce depression, as well as prevent decompensation. Narrative Note: []
--- NOTE | 2020-07-02 10:09 | BH.SGPN.GN ---
This psychotherapy group was provided via telehealth using two-way, real-time interactive telecommunication technology between the patients and the provider. The interactive telecommunication technology included audio and video. The patient was offered telemedicine as an option for care delivery during the COVID-19 pandemic and consented to this option. Patient location: [place] Provider located at [facility] Behaviors/Verbalizations/Mental Status: []Client alert and oriented, casually dressed and appropriately groomed. Eye contact good. Motor activity appropriate. Speech within normal limits. Affect congruent, mood anxious and depressed, Thoughts linear, logical, no signs of hallucinations or delusions. Client Response/Progress/Benefit: []Client responded well to session, providing input and taking notes throughout. Group discussed benefits of healthy communication on mental health which included: let?s others know what we are feeling, gets our needs met, prevents avoidable problems, improves relationships, and helps establish healthier boundaries. Group additionally discussed potential barriers to communication including: shutting down, passive-aggressive communication, assumptions, being vague, and poor emotional regulation. Client noted connecting with barriers of having a negative perspective and distorted thought patterns as impacting her ability to effectively communicate with peers. Remained attentive during psychoeducation on the four communication styles. Client self-reports identifying most with the passive and passive-aggressive communication styles. Shared that she often avoids conflict and instead bottles things up. Expressed this as reinforcing negative core beliefs that she is not allowed to voice her opinion. Benefited from increased insight regarding own communication style and impacts this has on overall mental health. Progress noted in increased insight and client making strides towards more actively applying self-care components. Client will continue in IOP to improve healthy coping and self-care, as well as reduce depressive sx, and prevent decompensation. Narrative Note: []
--- NOTE | 2020-07-02 11:11 | BH.SGPN.GN ---
This psychotherapy group was provided via telehealth using two-way, real-time interactive telecommunication technology between the patients and the provider.?The interactive telecommunication technology included audio and video.? ?The patient was offered telemedicine as an option for care delivery during the COVID-19 pandemic and consented to this option. ?Patient location: [place] ?Provider located at [facility] Behaviors/Verbalizations/Mental Status: []Client alert and oriented, casually dressed and groomed. Eye contact poor-often not on screen. Motor activity appropriate. Speech within normal limits. Affect flat, mood irritable and dysthymic. Thoughts linear, logical, no signs of hallucinations or delusions. Client Response/Progress/Benefit: []Client responded well to session AEB client listening attentively to others and providing input during small group discussion on the pay offs and costs of the different communication styles. Attentive during psychoeducation on assertiveness strategies to improve communication, and client selected an assertiveness skill to practice. Client selected the skill be assert needs directly and shared ?I?ve always had a hard time with beating [place] the mart.? Client plans to do this by working on using direct and clear communication of her needs with supports. Client seemed to benefit from increasing awareness of healthy strategies to improve communication. Progress noted in client?s use of opposite action to promote engagement in group. Will continue IOP tx to prevent decompensation, combat distortions that reinforce guilt, and learn healthy coping skills Narrative Note: []
--- NOTE | 2020-07-03 09:05 | BH.SGPN.GN ---
Behaviors/Verbalizations/Mental Status: [] Eye contact is good. Motor activity is appropriate. Appearance is casual. Speech is Appropriate. Mood is depressed. Affect is flat. Thoughts are linear and logical. No evidence of psychosis. Reviewed daily check in sheet and no reports of suicidal ideations or intent. Client Response/Progress/Benefit: [] Pt participated when prompted. Emotion for today is hopeless. Shared with the group that she had verbal argument with support last evening. Described having feelings of the unknown regarding her future. Reports that she emotionally shuts down when overwhelmed and tends to withdraw and isolate which she did last evening. Reports feels of guilt and regret. Processed with the group. Able to identify that she did utilize some skills yesterday such as writing down her thoughts and feelings as well as distraction. Feeling more optimistic today stating today is going to be a better day. Regression noted per pt report. Benefited some from support and encouragement from group. Will continue in IOP to prevent decompensation and to improve functioning to return to work. Narrative Note: [] This psychotherapy group was provided via telehealth using two-way, real-time interactive telecommunication technology between the patients and the provider.?The interactive telecommunication technology included audio and video.? ?The patient was offered telemedicine as an option for care delivery during the COVID-19 pandemic and consented to this option. ?Patient location: [place] ?Provider located at [facility]
--- NOTE | 2020-07-03 10:20 | BH.SGPN.GN ---
This psychotherapy group was provided via telehealth using two-way, real-time interactive telecommunication technology between the patients and the provider.?The interactive telecommunication technology included audio and video.? ?The patient was offered telemedicine as an option for care delivery during the COVID-19 pandemic and consented to this option. ?Patient location: [place] ?Provider located at [facility] Behaviors/Verbalizations/Mental Status: []Client alert and oriented, neatly dressed and groomed. Eye contact good. Motor activity appropriate. Speech within normal limits. Affect constricted, mood dysthymic. Thoughts linear, logical, no signs of hallucinations or delusions. Client Response/Progress/Benefit: []Client responded well to session, contributing during discussion and engaged during the activity, Group reported even though change can be scary, change can be positive. Discussed how change can lead to improved mental health and relationships. Client shared ?fear keeps us stuck and there will never be a right time to change.? Client worked with the group to identify barriers to making change, which included: fear of failure, uncomfortable emotions, and putting others first. Client participated in the activity where they identified and discussed the emotions related to change. Benefited from increased awareness and understanding of emotions, benefits, and barriers related to change. Progress noted in client?s willingness to participate today instead of shut down. Will continue IOP tx as client can benefit from reducing depressive symptoms, increasing healthy coping skills, and increasing support. Narrative Note: []
== END 2020-07-15 23:59 ==
LOC: BHIOP 08:00
PROVIDERS: PCP Internal Medicine; Referring Provider Psychiatry & Neurology Psychiatry; Visit Provider Psychiatry & Neurology Psychiatry
DX: F33.2 Major depressive disorder, recurrent severe without psychotic features (principal); F41.1 Generalized anxiety disorder; F43.10 Post-traumatic stress disorder, unspecified; L40.9 Psoriasis, unspecified; Z91.5 Personal history of self-harm; Z79.899 Other long term (current) drug therapy; F17.210 Nicotine dependence, cigarettes, uncomplicated; L40.50 Arthropathic psoriasis, unspecified
CPT/HCPCS: H0035; 90837; 90853

== ENCOUNTER 2020-07-17 09:00 | Outpatient (RCR) | payer BC, SELFPAY ==
[2020-07-16 00:39] VITALS: BP 133/92; PULSE 61
--- NOTE | 2020-07-17 13:45 | BH.MDN ---
Multi-Disciplinary Note - Note 60-min Individual Time Started:: 11:40 Date: 09/12/20 Time Stopped:: 12:38
--- NOTE | 2020-07-18 10:00 | BH.SGPN.GN ---
This psychotherapy group was provided via telehealth using two-way, real-time interactive telecommunication technology between the patients and the provider.?The interactive telecommunication technology included audio and video.? ?The patient was offered telemedicine as an option for care delivery during the COVID-19 pandemic and consented to this option. ?Patient location: [place] ?Provider located at [facility] Behaviors/Verbalizations/Mental Status: []Client alert and oriented, neatly dressed and groomed. Eye contact good. Motor activity appropriate. Speech within normal limits. Affect constricted, mood anxious and dysthymic. Thoughts linear, logical, no signs of hallucinations or delusions. Client Response/Progress/Benefit: []Client active participant as shown by active listening and participating in small group discussion. Client contributed to the discussion of self-care and the consequences of not practicing self-care. Client stated without self-care ?we can have a mental break down.? Group discussed consequences of not practicing self-care such as: ?downward spiral?, burnout, emotional exhaustion, and poor health. Client participated in the discussion of the common myths about self-care and participated in the discussion on debunking of these myths. Client?s group challenged the myths that self-care takes up too much time and that it is a luxury. Client seemed to benefit from increased awareness of the importance of self-care and challenging common myths that prevent practicing self-care. Progress noted as client reports focusing more on application of self-care. Will continue IOP tx to increase healthy coping skills and combat distortions. Narrative Note: []
--- NOTE | 2020-07-22 10:12 | BH.SGPN.GN ---
This psychotherapy group was provided via telehealth using two-way, real-time interactive telecommunication technology between the patients and the provider.?The interactive telecommunication technology included audio and video.? ?The patient was offered telemedicine as an option for care delivery during the COVID-19 pandemic and consented to this option. ?Patient location: [place] ?Provider located at [facility] Behaviors/Verbalizations/Mental Status: []Client alert and oriented, casually dressed and groomed. Eye contact fair. Motor activity appropriate. Speech within normal limits. Affect constricted, mood anxious and dysthymic. Thoughts linear, logical, no signs of hallucinations or delusions. Client Response/Progress/Benefit: []Client was an active participant as evidenced by providing input throughout discussion. Client connected with the discussion about how distorted thought patterns can reinforce mental health symptoms and impact self-worth. Client shared ?a lot of our thoughts are shaped by our past and our insecurities overpower our strengths.? Client noted that she connects with mental filter, jumping to conclusions, labeling, and personalization. Client shared that distortions often lead to self-criticism and keep people stuck. Appeared to benefit from increasing awareness of cognitive distortions and how they can impact emotions and behaviors. Will continue IOP tx to promote the use of healthy coping skills, improve mood stability, and reduce negative thinking. Narrative Note: []
--- NOTE | 2020-07-22 11:15 | BH.SGPN.GN ---
This psychotherapy group was provided via telehealth using two-way, real-time interactive telecommunication technology between the patients and the provider. The interactive telecommunication technology included audio and video. The patient was offered telemedicine as an option for care delivery during the COVID-19 pandemic and consented to this option. Patient location: [place] Provider located at [facility] Behaviors/Verbalizations/Mental Status: []Client alert and oriented, casual dress, hygiene tended to. Eye contact fair. Motor activity appropriate. Speech within normal limits. Affect constricted, mood depressed.. Thoughts linear, logical, no signs of hallucinations or delusions. Client Response/Progress/Benefit: []Client appeared distracted at times, however did contribute thoughts and feelings at times. Client stated she connected with many of the distortions Able to provide example distorted thoughts. Client engaged in discussion about how to reframe distorted thoughts into more realistic, rational statements. Client did not share her distorted and reframed thought. Client seemed to understand the impact cognitive distortions has on behavior. Client seemed to benefit from practicing identifying and reframing distorted thoughts. To continue IOP to continue use of healthy coping, improve view of self, and prevent decompensation. Narrative Note: []
--- NOTE | 2020-07-23 11:20 | BH.SGPN.GN ---
This psychotherapy group was provided via telehealth using two-way, real-time interactive telecommunication technology between the patients and the provider.?The interactive telecommunication technology included audio and video.? ?The patient was offered telemedicine as an option for care delivery during the COVID-19 pandemic and consented to this option. ?Patient location: [place] ?Provider located at [facility] Behaviors/Verbalizations/Mental Status: []Client alert and oriented, neatly dressed and groomed. Eye contact good. Motor activity appropriate. Speech within normal limits. Affect constricted, mood anxious and dysthymic. Thoughts linear, logical, no signs of hallucinations or delusions. Client Response/Progress/Benefit: []Client was an active participant in group discussion and activity. Engaged during activity and provided ideas on how to cope with internal barriers that keep clients stuck from moving towards goals. Barriers identified by client included: guilt/shame, lack of self-forgiveness, and living in the past. Strategies identified for overcoming these barriers included: self-compassion, reframing negative thinking, and focusing on the present moment. Client reported she wants to work on overcoming her barrier of shame by ?reminding myself that past mistakes can help me grow into a stronger human.? Benefited from group by identifying obstacles and solutions to desired reality. Client has been showing progress with increased self-awareness, but client continues to struggle with ruminations that reinforce depression and low self-worth. Will continue IOP tx to prevent decompensation, reduce negative thinking, and increase healthy coping skills. Narrative Note: []
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
--- NOTE | 2020-07-24 11:15 | BH.SGPN.GN ---
This psychotherapy group was provided via telehealth using two-way, real-time interactive telecommunication technology between the patients and the provider.?The interactive telecommunication technology included audio and video.? ?The patient was offered telemedicine as an option for care delivery during the COVID-19 pandemic and consented to this option. ?Patient location: [place] ?Provider located at [facility] Behaviors/Verbalizations/Mental Status: []Client alert and oriented, casual dress, hygiene tended to. Eye contact good. Motor activity appropriate. speech and tone WNL. Affect constricted, mood dysthymic. Thoughts linear, logical, no signs of hallucinations or delusions. Client Response/Progress/Benefit: []Client receptive of session, engaged throughout AEB client participating in discussion, asking questions, and listening to others. Client completed a worksheet where client identified personal pitfalls impacting mental health progress. Attentive and contributing during group brainstorm of strategies to overcome pitfalls. Client stated she will work on the pitfalls of unrealistic expectations and ?unforgiveness.? Client stated she will work on these by identifying and reframing cognitive distortions. Benefited from identifying personal pitfalls and strategies to overcome these pitfalls. Progress noted in client?s increase self-awareness. Will continue IOP tx to improve use of healthy coping skills, reduce self-blame, and increase healthy coping skills. Narrative Note: []
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
--- NOTE | 2020-07-29 10:20 | BH.SGPN.GN ---
This psychotherapy group was provided via telehealth using two-way, real-time interactive telecommunication technology between the patients and the provider.?The interactive telecommunication technology included audio and video.? ?The patient was offered telemedicine as an option for care delivery during the COVID-19 pandemic and consented to this option. ?Patient location: [place] ?Provider located at [facility] Behaviors/Verbalizations/Mental Status: []Client alert and oriented, casually dressed and groomed. Eye contact fair. Motor activity appropriate. Speech within normal limits. Affect flat, mood dysthymic and irritable. Thoughts linear, logical, no signs of hallucinations or delusions. Client Response/Progress/Benefit: []Client engaged participant AEB client taking notes and listening attentively to peers. However, client was quieter than usual. Group discussed healthy versus unhealthy coping skills and what contributes to people using unhealthy skills. The group stated unhealthy coping skills tend to be easy and habitual, temporary relief, and learned behaviors. Client connected with examples of unhealthy coping skills and had insight that these coping skills have negative consequences over time. Client shared she wants to get better at the healthy coping skill of thought challenging. Client was a passive participant in the group activity and connected that a healthy foundation of coping skills is composed of healthy internal and external coping skills. Client seemed to benefit from increased awareness of the importance of increasing healthy coping skills and consequences of utilizing unhealthy coping skills. Client will continue IOP tx to prevent decompensation, reduce negative thinking, and increase self-care. Narrative Note: []
--- NOTE | 2020-07-29 11:20 | BH.SGPN.GN ---
This psychotherapy group was provided via telehealth using two-way, real-time interactive telecommunication technology between the patients and the provider. The interactive telecommunication technology included audio and video. The patient was offered telemedicine as an option for care delivery during the COVID-19 pandemic and consented to this option. Patient location: [place] Provider located at [facility] Behaviors/Verbalizations/Mental Status: []Client alert and oriented, casual dress, hygiene tended to. Eye contact fair. Motor activity appropriate. Speech within normal limits. Affect flat, mood depressed.. Thoughts linear, logical, no signs of hallucinations or delusions. Client Response/Progress/Benefit: []Client less engaged compared to previous group sessions. Client did not provide much input throughout session however did appear to listen attentively to others and completed task of creating a coping menu. Group discussed the different categories of coping skills which included distraction, emotional release, grounding, self-love, and thought challenging. Client participated in creating a coping skills ?menu? from the five categories of coping skills. Client's coping skill menu included: listening to positive podcast, 5 senses, meditation, engaging in a new hobby, reframing negative thoughts and using T.H.I.N.K. acronym to help with challenging thoughts. Progress seems stagnant AEB client continuing to avoid dealing with a significant stressor which continues to negatively impact her mood. Appeared to benefit from increasing repertoire of healthy coping skills. Will continue tx to improve emotional regulation, increase self-confidence, and prevent decompensation. Narrative Note: []
== END 2020-08-06 11:00 | disposition home or self-care (01) ==
LOC: BHIOP 09:00
PROVIDERS: PCP Internal Medicine; Referring Provider Psychiatry & Neurology Psychiatry; Visit Provider Psychiatry & Neurology Psychiatry
DX: F33.2 Major depressive disorder, recurrent severe without psychotic features (principal); F43.10 Post-traumatic stress disorder, unspecified; F41.8 Other specified anxiety disorders; K52.89 Other specified noninfective gastroenteritis and colitis; L40.9 Psoriasis, unspecified; Z79.899 Other long term (current) drug therapy
CPT/HCPCS: H0035; 90834; 90837; 90853

== ENCOUNTER → 2021-03-12 07:02 | Outpatient (CLI) | payer BC, SELFPAY ==
--- NOTE | 2021-03-12 07:04 | BI_ITS ---
MAMMOGRAPHY - BILATERAL SCREENING REASON FOR EXAM: Female, 45 years old. Routine annual screening examination. PERTINENT HISTORY: Aunt with breast cancer. TECHNIQUE: Digital bilateral breast jermaine (3D mammographic acquisition) in the CC and MLO projections. 2-D mediolateral oblique (MLO) and craniocaudad (CC) views of both breasts were obtained. CAD: Full Field Digital Mammography with Computer Added Detection was performed. COMPARISON: Comparison is made with prior study dated 12/18/2019 and 12/13/2018. FINDINGS: Breast Composition: The breasts are heterogeneously dense, which may obscure small masses. There are no dominant masses or suspicious calcifications. Stable small benign appearing bilateral axillary No other significant abnormalities are identified. There has been no significant change since the prior study. BI/SCRN MAMM (CAD)W/JERMAINE BILAT IMPRESSION: Stable bilateral screening mammogram. Yearly follow-up mammogram recommended. (A) ASSESSMENT CATEGORY: BIRADS Category 2: Benign. A letter regarding these results will be sent to the patient by the facility within 30 days. Approximately 10% of breast cancers are not detected by mammography. A normal mammogram should not delay biopsy of a clinically suspicious abnormality. [id number] Electronically Signed: Siva Mcfarlane MD at 9:06 EDT , Service support ,
== END ==
PROVIDERS: PCP Internal Medicine; Referring Provider Internal Medicine; Visit Provider Internal Medicine
DX: Z12.31 Encounter for screening mammogram for malignant neoplasm of breast (principal)
CPT/HCPCS: 77063; 77067

== ENCOUNTER 2021-11-07 09:19 | Outpatient (CLI) | payer BC, SELFPAY | END 2021-11-07 23:59 | disposition home or self-care (01) | LOC: PSN 09:22 | PROVIDERS: PCP Internal Medicine; Referring Provider Nurse Practitioner; Visit Provider Nurse Practitioner | DX: R00.1 Bradycardia, unspecified (principal) | CPT/HCPCS: 93225; 93226 ==

== ENCOUNTER → 2022-03-17 | Outpatient (CLI) | payer BC, SELFPAY ==
[2022-03-17 10:12] LABS: Hepatitis B Surface Antibody Reactive; Hepatitis B Surface Antigen Non-Reactive (Nonreactive); Hepatitis C Antibody Non-Reactive (Nonreactive)
[2022-03-18 18:07] LABS: QNTFERON TB Mitogen Value > 10.00 IU/mL (.); QNTFERON TB Nil Value 0 IU/mL (.); QNTFERON TB1+ Ag Value 0 IU/mL (.); QNTFERON TB2+ Ag Value 0 IU/mL (.)
[2022-03-18 18:38] LABS: Hepatitis B Core Ab Total Negative (Negative); QNTIFERON TB Positive Criteria Negative (Negative)
== END | disposition home or self-care (01) ==
PROVIDERS: PCP Internal Medicine; Referring Provider Physician Assistant; Visit Provider Physician Assistant
DX: L40.0 Psoriasis vulgaris (principal); M12.9 Arthropathy, unspecified; Z79.899 Other long term (current) drug therapy
CPT/HCPCS: 36415; 86480; 86704; 86706; 86803; 87340

== ENCOUNTER → 2022-03-24 | Outpatient (CLI) | payer BC, SELFPAY ==
--- NOTE | 2022-03-24 07:17 | BI_ITS ---
MAMMOGRAPHY - BILATERAL SCREENING REASON FOR EXAM: Female, 46 years old. Routine annual screening examination. PERTINENT HISTORY: Aunt with breast cancer. TECHNIQUE: Digital bilateral breast jermaine (3D mammographic acquisition) in the CC and MLO projections. 2-D mediolateral oblique (MLO) and craniocaudad (CC) views of both breasts were obtained. CAD: Full Field Digital Mammography with Computer Added Detection was performed. COMPARISON: Comparison is made with prior study dated 03/12/2021 and 12/18/2019. FINDINGS: Breast Composition: The breasts are heterogeneously dense, which may obscure small masses. There are no dominant masses or suspicious calcifications. No other significant abnormalities are identified. There has been no significant change since the prior study. BI/SCRN MAMM (CAD)W/JERMAINE BILAT IMPRESSION: Stable bilateral screening mammogram. Yearly follow-up mammogram recommended. (A) ASSESSMENT CATEGORY: BIRADS Category 1: Negative. A letter regarding these results will be sent to the patient by the facility within 30 days. Approximately 10% of breast cancers are not detected by mammography. A normal mammogram should not delay biopsy of a clinically suspicious abnormality. [id number] Electronically Signed: Siva Mcfarlane MD at 8:32 EDT ,
== END | disposition home or self-care (01) ==
LOC: OPBI 07:14
PROVIDERS: PCP Internal Medicine; Visit Provider Internal Medicine
DX: Z12.31 Encounter for screening mammogram for malignant neoplasm of breast (principal)
CPT/HCPCS: 77063; 77067

== ENCOUNTER → 2023-06-11 | Outpatient (CLI) | payer BC, SELFPAY ==
--- NOTE | 2023-06-11 14:48 | BI_ITS ---
MAMMOGRAPHY - BILATERAL SCREENING REASON FOR EXAM: Female, 47 years old. Routine annual screening examination. PERTINENT HISTORY: Aunt with breast cancer. TECHNIQUE: Digital bilateral breast jermaine (3D mammographic acquisition) in the CC and MLO projections. 2-D mediolateral oblique (MLO) and craniocaudad (CC) views of both breasts were obtained. CAD: Full Field Digital Mammography with Computer Added Detection was performed. COMPARISON: Comparison is made with prior study dated MARCH 24, 2022 and March 12, 2021. FINDINGS: Breast Composition: The breasts are heterogeneously dense, which may obscure small masses. There are no dominant masses or suspicious calcifications. No other significant abnormalities are identified. There has been no significant change since the prior study. BI/SCRN MAMM (CAD)W/JERMAINE BILAT IMPRESSION: Stable bilateral screening mammogram. Yearly follow-up mammogram recommended. (A) ASSESSMENT CATEGORY: BIRADS Category 1: Negative. A letter regarding these results will be sent to the patient by the facility within 30 days. Approximately 10% of breast cancers are not detected by mammography. A normal mammogram should not delay biopsy of a clinically suspicious abnormality. [id number] Electronically Signed: Siva Mcfarlane MD at 8:48 EDT ,
== END | disposition home or self-care (01) ==
LOC: OPBI 14:48
PROVIDERS: PCP Internal Medicine; Referring Provider Registered Nurse; Visit Provider Registered Nurse
DX: Z12.31 Encounter for screening mammogram for malignant neoplasm of breast (principal)
CPT/HCPCS: 77063; 77067

== ENCOUNTER 2023-06-19 06:55 | Emergency (ER) | payer BC, SELFPAY ==
[2023-06-19 06:55] VITALS: BP 119/76; PULSE 66; RESP 15; TEMP 36.3; O2SAT 98; BMI 29.3
--- NOTE | 2023-06-19 07:08 | EDS_ITS ---
HPI History of Present Illness Chief Complaint: Laceration Informant: patient Narrative Narrative: Patient is a ohjss-eimw-bdylqxhu female who is 39 years old with past medical history of generalized anxiety disorder and depression. She states roughly 1 hour ago she was chopping food for a salad when she excellently cut her left thumb. She denies any numbness tingling or weakness. She denies any bleeding disorder or blood thinner use. She states that she cannot get the bleeding to stop despite pressure wraps and with concern that she may need the wound closed comes in for evaluation. Patient states that her tetanus status is up-to-date [facility] Medical History Acute bronchitis, unspecified Generalized anxiety disorder Major depressive disorder, recurrent severe without psychotic features PTSD (post-traumatic stress disorder) URI (upper respiratory infection) Home Medications cwspuqdg-kck-tglni ac 400 mcg-calcium carb 500 mg-vit K1 20 mcg tablet (Women's 50 Plus Multivitamin) 1 tab PO DAILY 03/12/23 [History Last Taken Unknown] venlafaxine 37.5 mg capsule,extended release 24 hr See Rx Instructions .Route .COMPLEX #30 caps 04/09/23 [Rx Last Taken Unknown] Allergy/AdvReac Type Severity Reaction Status Date / Time No Known Allergies Allergy Verified 06/19/23 06:59 Family History (Updated 03/12/23 @ 14:52 by Billie Damon) Grandmother Cancer liver, ovarian, stomach Father Hypertension Heart disease Cancer prostate Mother Hypertension Surgical History S/P appendectomy S/P cholecystectomy S/P hysterectomy Social History (Updated 03/12/23 @ 14:54 by Billie Damon) household members: spouse number of children: 3 current occupational status: employed current occupation: [employer] Smoking Status: Current every day smoker tobacco type: cigarettes alcohol intake: never substance use type: does not use seatbelt use: always do you feel safe at home: Yes additional social history: - [facility] ROS ED Constitutional Constitutional ED: Denies chills or fever(s) ENT ENT ED: Denies sore throat Cardiovascular Cardiovascular: Denies chest pain Respiratory/Chest Respiratory/Chest: Denies cough or dyspnea Gastrointestinal Gastrointestinal: Denies abdominal pain, diarrhea, nausea or vomiting Genitourinary Genitourinary ED: Denies dysuria Musculoskeletal Musculoskeletal: Reports other Details: Positive left thumb pain Integumentary Reports other Details: Positive left thumb laceration ; Denies rash Neurologic Neurologic: Denies headache(s), paresthesias or weakness Hematologic/Lymphatic Hematologic/Lymphatic: Denies easy bleeding or easy bruising EXAM Physical Exam Const Vital Signs: 06/19/23 06:55 Temperature 97.4 F L Temperature Source Temporal Pulse Rate 66 Respiratory Rate 15 Blood Pressure 119/76 Blood Pressure Mean 90 Pulse Ox 98 Oxygen Delivery Method Room Air Positive well nourished and well developed General Appearance ED: well developed HEENT HEENT Narrative: Normocephalic atraumatic Eyes PERRL and EOMs intact bilaterally Neck supple Resp normal respiratory effort and clear to auscultation bilaterally Cardio regular rate and regular rhythm Extremity Extremity Narrative: Left upper extremity is neurovascularly intact; AIN/PIN are intact and normal Patient has a 1 x 2 cm skin avulsion along the lateral and volar aspect of the distal left thumb. There is persistent ooze of nonpulsatile dark red blood. No involvement of the nailbed. No ligamentous or tendon injury noted. Remainder the exam is normal Neuro oriented x3, CN's II-XII intact bilaterally and no sensory deficits noted Sensorium / Orientation: alert Motor Exam: strength 5/5 throughout Psych mental status grossly normal Skin Skin Narrative: Laceration/skin avulsion of the left thumb as documented above MDM MDM MDM Narrative Medical decision making narrative: Patient arrived to the ER with stable vitals and reported an axonal trauma to the left thumb. Differential diagnosis is for skin avulsion versus laceration versus open fracture versus nailbed injury. The patient's physical exam showed a complete avulsion of the skin indicating there was no tissue left to suture together. As her tetanus status is updated there is no need to provide this either. Therefore the patient was given a digital block as documented below for anesthesia and/pain control. At that time the wound was copiously irrigated with normal saline and cleaned with chlorhexidine. Following this Surgifoam was applied and then a pressure wrap was added for hemostasis. As the wound is only minimally contaminated there is no need for antibiotics. Now that bleeding has been controlled and patient does not have any bony ligamentous or tendon or neurovascular issues secondary to the injury she is otherwise safe for discharge Patient had the left thumb cleaned with chlorhexidine. Following this anesthesia was provided using 6 mL of 2% lidocaine without epinephrine in digital block fashion. Following this the tip of the thumb/distal phalanx was irrigated with copious amounts of normal saline and then cleaned with chlorhexidine. Surgifoam was then applied over the wound followed by a pressure. This provided good hemostasis of the skin avulsion. Patient tolerated procedure well without complication History & Record Review Discussion w/independent historian: Patient Discharge Plan Triage Chief Complaint: Laceration ED Provider: Kvng Colin Dx/Rx/DC Orders Clinical Impression: Avulsion of skin of left thumb without complication, History of anxiety disorder, History of posttraumatic stress disorder (PTSD) Instructions: ED Skin Avulsion Prescriptions: No Action Women's 50 Plus Multivitamin 400 mcg-500 mg calcium-20 mcg tablet 1 tab PO DAILY venlafaxine 37.5 mg capsule,extended release 24hr See Rx Instructions .ROUTE .COMPLEX Qty: 30 12RF Dose Instruction: TAKE 1 CAPSULE BY MOUTH EVERY DAY Rx Instructions: TAKE 1 CAPSULE BY MOUTH EVERY DAY Primary Care Provider: Ana Lilia Almaraz Referrals: Ana Lilia Almaraz, [Primary Care Provider] - Activity Restrictions/Additional Instructions: You completely removed the skin from the left thumb. There is no tissue left to suture. Allow the Surgicel and pressure wrap to stay on the wound for the next 12 to 24 hours to provide hemostasis. Following this you can remove the pressure wrap and wash your hands or shower as you normally would to dissolve away the remaining Surgicel. At that time the wound should heal normally with scab formation. If you have any further concerns or worsening symptoms please return to the ER for repeat evaluation. Disposition Disposition: Home, Self Care
[2023-06-19] MEDS: Gelatin Sponge Absorbable 50cm (1) 1 EACH TOPICAL (07:30)
[2023-06-19] MEDS: Lidocaine 2% (20 ml mdv) 20 ML Vial INFILT (07:30)
== END 2023-06-19 08:05 | disposition home or self-care (01) ==
PROVIDERS: Emergency Provider Emergency Medicine; PCP Internal Medicine; Visit Provider Emergency Medicine
DX: S61.012A Laceration without foreign body of left thumb without damage to nail, initial encounter (principal); F41.1 Generalized anxiety disorder; F32.A Depression, unspecified; F17.210 Nicotine dependence, cigarettes, uncomplicated; W26.0XXA Contact with knife, initial encounter; Y93.G3 Activity, cooking and baking; F43.10 Post-traumatic stress disorder, unspecified
CPT/HCPCS: 64450; 99282

== ENCOUNTER 2023-09-27 05:53 | Day surgery (SDC) | payer BC, SELFPAY ==
[2023-09-27] VITALS (7 sets, daily range): BP systolic 91–106; BP diastolic 58–71; PULSE 54–70; RESP 16–18; TEMP 36.4–36.9; O2SAT 91–96; BMI 30.1
[2023-09-27] MEDS: Lactated Ringers 1,000 ML 15 ML IV (06:21)
--- NOTE | 2023-09-27 07:55 | PCM.OPRPT ---
Report of Operation Date of Procedure: 09/27/23 Pre-Operative Diagnosis: CTS Right Post-Operative Diagnosis: Same Surgery/Procedure Performed:: Right CTR Description of Surgical Findings:: Report of Operation Date of Procedure: 09/27/23 Preoperative Diagnosis: Right Carpal Tunnel Syndrome Postoperative Diagnosis: same Procedure Performed: Right Carpal Tunnel Release Anesthesia: Andie Cintron Anesthesiologist: Description of Procedure: With appropriate informed consent, the patient was taken to the operative suite. After the induction of [place] block, the right upper extremity was prepared and draped sterilely. Subsequently, a midline longitudinal incision was made in the base of the right palm, in line with the fourth ray with #15 blade scalpel. Hemostasis was perfected with bipolar electrocautery. Scissor dissection was carried down through the subcutaneous tissue to the palmar fascia. A self-retaining retractor was placed. In sequence, the tidwell fascia, then the deep transverse carpal ligament was divided with the scalpel under direct visualization. Thereafter, the most proximal and distal aspects of the deep transverse carpal ligament were divided with scissors under direct visualization. The wound was copiously irrigated and closed with interrupted sutures of 4-0 nylon. A sterile well-padded dressing and Mata wrap were applied. The tourniquet was released. Excellent blood flow was returned to the right upper extremity. The patient was transferred to the PACU in stable and satisfactory condition. Pool Canales DO Surgeon: Pool Canales conference coordinator: None Type of Anesthesia: Andie Cintron Anesthesiologist: Jamie Crowe Admdariana VTE Documentation VTE Present on Admission: No VTE Pharm Prophylaxis ordered?: No Reason prophylaxis not ordered:: Treatment Not Indicated
== END 2023-09-27 09:22 | disposition home or self-care (01) ==
LOC: SDC 05:53 → AC 05:55
PROVIDERS: PCP Internal Medicine; Referring Provider Orthopaedic Surgery; Visit Provider Orthopaedic Surgery
PROC: (CPT 64721; principal; 2023-09-27 07:15)
DX: G56.01 Carpal tunnel syndrome, right upper limb (principal); F17.210 Nicotine dependence, cigarettes, uncomplicated; E66.8 Other obesity; Z68.29 Body mass index [BMI] 29.0-29.9, adult
CPT/HCPCS: 64721; 01810; J7120

== ENCOUNTER → 2023-10-11 | Outpatient (CLI) | payer BC, SELFPAY ==
[2023-10-13 13:08] LABS: QNTFERON TB Mitogen Value > 10.00 IU/mL (.); QNTFERON TB Nil Value 0 IU/mL (.); QNTFERON TB1+ Ag Value 0.01 IU/mL (.); QNTFERON TB2+ Ag Value 0.05 IU/mL (.); QNTIFERON TB Positive Criteria Negative (Negative)
== END | disposition home or self-care (01) ==
LOC: BIMLAB 14:26
PROVIDERS: PCP Internal Medicine; Visit Provider Dermatology Pediatric Dermatology
DX: L82.1 Other seborrheic keratosis (principal); L57.8 Other skin changes due to chronic exposure to nonionizing radiation; D22.5 Melanocytic nevi of trunk; L81.4 Other melanin hyperpigmentation; L40.0 Psoriasis vulgaris; L90.5 Scar conditions and fibrosis of skin; Z09 Encounter for follow-up examination after completed treatment for conditions other than malignant neoplasm; Z87.2 Personal history of diseases of the skin and subcutaneous tissue; Z71.89 Other specified counseling
CPT/HCPCS: 36415; 86480

== ENCOUNTER 2024-04-09 04:40 | Emergency (ER) | payer BC, SELFPAY ==
[2024-04-09] VITALS (9 sets, daily range): BP systolic 113–119; BP diastolic 72–81; PULSE 62–75; RESP 18–20; TEMP 36.7–37.1; O2SAT 87–95; BMI 28.3
--- NOTE | 2024-04-09 05:04 | EKG12_ITS ---
Test Reason : SOB Blood Pressure : / mmHG Vent. Rate : 068 BPM Atrial Rate : 068 BPM P-R Int : 154 ms QRS Dur : 086 ms QT Int : 452 ms P-R-T Axes : 031 072 048 degrees QTc Int : 480 ms Normal sinus rhythm Low voltage QRS Prolonged QT Abnormal ECG Confirmed by Pool Hoffmann ([id number]), website/blog editor REUBEN ZAVALA ([id number]) on 04/10/2024 10:57:14 AM Referred By: LORI Confirmed By:Pool Hoffmann
--- NOTE | 2024-04-09 05:04 | RAD_ITS ---
INDICATION: cough EXAMINATION/TECHNIQUE: X-RAY - XR Chest 2 Views COMPARISON: 08/03/2023. FINDINGS: LINES/DEVICES: None. LUNGS: Bibasilar atelectasis versus infiltrates. No evidence of a pleural effusion or a pneumothorax. MEDIASTINUM AND CARDIOVASCULAR STRUCTURES: Cardiac silhouette is normal in size and contour. Mediastinum is unremarkable. BONES AND SOFT TISSUES: No acute abnormality. RAD/Chest PA and Lateral IMPRESSION: Bibasilar atelectasis versus infiltrates. Electronically Signed: Joey Ibrahim DO at 6:14 EDT ,
[2024-04-09] MEDS: MethylPREDNISolone 125 MG/2 ML Vial IV (05:19)
[2024-04-09 05:27] LABS: Absolute Lymphocyte Count 1.47 X10^3/uL (0.83-4.51); Absolute Neutrophil Count 12.5 X10^3/uL (2.0-7.7); Basophil# 0.05 X10^3/uL; Basophil% 0.3 % (0-1); Eosinophil# 0.22 X10^3/uL; Eosinophils% 1.4 % (0-5); Hemoglobin 13.1 g/dL (12.0-15.0); Lymphocyte # 1.47 X10^3/ul (0.83-4.51); Lymphocyte % 9.6 % (19-41); Mean Corp Hgb Conc 33.6 g/dL (32-36); Mean Corpuscular Hgb 30.1 pg (27.0-32.0); Mean Corpuscular Volume 89.7 fL (81-99); Mean Platelet Vol. 9.4 fl (6.2-12.0); Monocyte# 1.12 X10^3/uL; Monocyte% 7.3 % (0-10); NRBC Flagged by Analyzer 0 % (0-5); Neutrophil # 12.49 X10^3/uL (2.7-7.7); Neutrophil % 81.2 % (47-70); Platelet Count 264 K/mm3 (150-450); RBC Distribution Width CV 13.4 % (11.6-14.6); Red Blood Count 4.35 M/mm3 (4.2-5.4); White Blood Count 15.4 K/mm3 (4.4-11.0)
[2024-04-09] MEDS: Albuterol 2.5 MG/3 ML VIAL.NEB. INHALATION (05:29)
[2024-04-09] MEDS: Ipratropium/Albuterol Sulfate 3 ML AMPUL.NEB INHALATION (05:29)
[2024-04-09 05:43] LABS: Anion Gap 5 (5-15); BUN 20 mg/dL (7-18); BUN/Creat Ratio 24.1 RATIO (10-20); Calcium,Total 8.5 mg/dL (8.5-10.1); Chloride 107 mmol/L (98-107); Creatinine, Serum 0.83 mg/dL (0.55-1.02); EST Glomerular Filtration Rate 78 mL/min (>60); Est Glom Filt Rate - Afr Amer 94 mL/min (>60); Estimated Creatinine Clearance 78.33 ml/min; Glucose 147 mg/dL (74-106); Magnesium 1.9 mg/dL (1.6-2.6); Potassium 3.6 mmol/L (3.5-5.1); Sodium Level 141 mmol/L (136-145)
--- NOTE | 2024-04-09 06:52 | EDS_ITS ---
HPI History of Present Illness Chief Complaint: Shortness of Breath Informant: patient Narrative Narrative: Patient is a 48-year-old female with past medical history of anxiety and smoking. She states she has had approximately 10 days of congestion cough and shortness of breath. She states that after 5 days she went to an urgent care where they did a COVID and influenza swab which were negative and placed her on a Z-Parish. She states she just finished a Z-Parish but she feels like her shortness of breath has worsened. Secondary to the worsening sensation of shortness of breath she presents for evaluation. [facility] Medical History (Updated 04/10/24 @ 02:[address] Kvng Colin, DO) History of Clostridium difficile infection Anxiety History of steroid therapy Smoker History of Holter monitoring History of stress test Acute bronchitis, unspecified URI (upper respiratory infection) PTSD (post-traumatic stress disorder) Generalized anxiety disorder Major depressive disorder, recurrent severe without psychotic features Home Medications ?Medication ?Instructions ?Recorded ?Last Taken ?Type albuterol sulfate 90 mcg/actuation 1 - 2 puff inhalation Q4H PRN PRN 04/09/24 Unknown Rx aerosol inhaler (Ventolin HFA) Wheezing/SOB #1 device albuterol sulfate 90 mcg/actuation 1 inh inhalation Q4H PRN PRN 04/09/24 Unknown History breath activated powder inhaler wheezing (ProAir RespiClick) doxycycline hyclate 100 mg capsule 100 mg PO BID 10 days #20 caps 04/09/24 Unknown Rx prednisone 20 mg tablet 40 mg (2 x 20 mg) PO DAILY 5 days 04/09/24 Unknown Rx #10 tabs Allergy/AdvReac Type Severity Reaction Status Date / Time No Known Allergies Allergy Verified 04/09/24 04:42 Family History (Updated 03/12/23 @ 14:52 by Billie Damon) Grandmother Cancer liver, ovarian, stomach Father Hypertension Heart disease Cancer prostate Mother Hypertension Surgical History S/P appendectomy S/P cholecystectomy S/P hysterectomy Social History (Updated 03/12/23 @ 14:54 by Billie Damon) household members: spouse number of children: 3 current occupational status: employed current occupation: [employer] Smoking Status: Current every day smoker tobacco type: cigarettes alcohol intake: never substance use type: does not use seatbelt use: always do you feel safe at home: Yes additional social history: - [facility] ROS ROS ED Constitutional Constitutional ED: Denies chills or fever(s) Eyes Eyes: Denies blurry vision or change in vision ENT ENT ED: Reports rhinorrhea and sore throat Cardiovascular Cardiovascular: Denies chest pain Respiratory/Chest Respiratory/Chest: Reports cough and dyspnea Gastrointestinal Gastrointestinal: Denies abdominal pain, diarrhea, nausea or vomiting Genitourinary Genitourinary ED: Denies dysuria Musculoskeletal Musculoskeletal: Reports myalgias Integumentary Denies rash Neurologic Neurologic: Reports headache(s) Hematologic/Lymphatic Hematologic/Lymphatic: Denies easy bleeding or easy bruising Allergic/Immunologic Allergic/Immunologic ED: Denies mouth swelling or tongue swelling EXAM Physical Exam Const Vital Signs: 04/09/24 04:43 04/09/24 04:43 04/09/24 04:46 Temperature 98.8 F 98.8 F Temperature Source Oral Oral Pulse Rate 66 66 Respiratory Rate 20 H 20 H Respiratory Effort Respiratory Pattern Blood Pressure 117/78 117/78 Blood Pressure Mean 91 91 Pulse Ox 87 93 93 Oxygen Delivery Method Room Air Nasal Cannula Nasal Cannula Oxygen Flow Rate (L/min) 2 2 04/09/24 04:47 04/09/24 05:30 04/09/24 05:46 Temperature 98.7 F Temperature Source Oral Pulse Rate 67 62 Respiratory Rate 18 18 Respiratory Effort Short of Breath Labored Respiratory Pattern Normal Blood Pressure 113/72 Blood Pressure Mean 85 Pulse Ox Oxygen Delivery Method Nasal Cannula Oxygen Flow Rate (L/min) 2 04/09/24 06:00 04/09/24 06:59 04/09/24 07:00 Temperature 98.8 F 98.0 F 98.0 F Temperature Source Oral Oral Pulse Rate 63 68 75 Respiratory Rate 18 18 18 Respiratory Effort Respiratory Pattern Blood Pressure 116/74 119/81 H 119/81 H Blood Pressure Mean 88 93 93 Pulse Ox 94 95 94 Oxygen Delivery Method Nasal Cannula Room Air Oxygen Flow Rate (L/min) 2 Positive well nourished and well developed General Appearance ED: well developed; Negative for pallor HEENT HEENT Narrative: No tongue or lip swelling no oral lesions no airway edema or compromise There is cobblestoning noted in the posterior pharynx consistent with sinus drainage No secondary findings in the posterior pharynx to suggest infection Eyes PERRL and EOMs intact bilaterally General Eye ED: Negative for scleral icterus Neck supple and no JVD Neck Narrative: No nuchal rigidity or meningeal sign Chest Wall palpation of chest normal Chest Narrative: No bony deformity or crepitance Resp Resp Narrative: Patient is tachypneic with slight accessory muscle use. Breath sounds are diminished throughout with inspiratory and expiratory wheezing and rhonchi in the bilateral bases. Cardio regular rate and regular rhythm GI normal to inspection, nondistended, normoactive bowel sounds, non-tender, non- distended and no masses Auscultation: normoactive bowel sounds Palpation: soft Extremity normal to inspection Extremity Narrative: No asymmetric edema no pitting edema negative Homans' sign bilaterally Neuro oriented x3, CN's II-XII intact bilaterally and no sensory deficits noted Sensorium / Orientation: alert Motor Exam: strength 5/5 throughout Psych mental status grossly normal Skin no rashes or lesions noted General Skin Exam: Negative for jaundice or pallor MDM MDM MDM Narrative Medical decision making narrative: Patient arrived to the ER afebrile but had increased work of breathing and her room air pulse ox was low at 87%. The patient reports a history of smoking roughly a pack a day for 30 years but denies any formal diagnosis of COPD or need for supplemental oxygen. With 10 days of cough and congestion and now progression to increased shortness of breath with hypoxia upon arrival there is concern for pneumonia versus pneumothorax versus pneumomediastinum versus congestive heart failure versus acute blood loss anemia versus acute kidney injury or electrolyte abnormality. Secondary to his basic blood work was obtained as well as a chest x-ray but as she had a COVID and influenza swab roughly 5 days ago I felt no need to repeat 1. White count was elevated at 15.4 and there is slight left shift with mild elevation to the absolute neutrophil count. However there is no signs of acute kidney injury acute blood loss anemia or severe electrolyte abnormality. Chest x-ray showed changes consistent with a telectasis versus pneumonia. Based on her white count and symptoms this is most likely pneumonia. I do feel that with her prolonged history of smoking she has undiagnosed COPD and is most likely having an exacerbation stimulated by the infection. Secondary to this she was given steroids and breathing treatment. After doing so her pulse ox improved to 92 to 95% on room air at rest and with ambulation and did not drop either. Therefore at this time as patient is no longer hypoxic or requiring supplemental oxygen there is no need for admission. She will be placed back on antibiotics secondary to x-ray showing changes concerning for infection and also given an inhaler and steroids to help with the bronchospasm. However she is not showing signs of septicemia she is no longer hypoxic there is no need for admission she is otherwise safe for discharge History & Record Review Discussion w/independent historian: Patient Lab Data Attestation: I reviewed the patient's lab results. Labs: Laboratory Results - last 24 hr 04/09/24 05:18 WBC 15.4 H RBC 4.35 Hgb 13.1 Hct 39.0 MCV 89.7 MCH 30.1 MCHC 33.6 RDW Std Deviation 44.0 H RDW Coeff of Vanda 13.4 Plt Count 264 MPV 9.4 Immature Gran % (Auto) 0.200 Neut % (Auto) 81.2 H Lymph % (Auto) 9.6 L Garrard % (Auto) 7.3 Eos % (Auto) 1.4 Baso % (Auto) 0.3 Absolute Neuts (auto) 12.5 H Absolute Lymphs (auto) 1.47 Nucleated RBC % 0 Sodium 141 Potassium 3.6 Chloride 107 Carbon Dioxide 29.0 Anion Gap 5 BUN 20 H Creatinine 0.83 Estim Creat Clear Calc 78.33 Est GFR (MDRD) Af Amer 94 Est GFR (MDRD) Non-Af 78 BUN/Creatinine Ratio 24.1 H Glucose 147 H Calcium 8.5 Magnesium 1.9 Radiography Diagnostic Testing: Clinical Impression(s) from Imaging Studies Chest X-Ray 04/09/24 05:04 IMPRESSION: Bibasilar atelectasis versus infiltrates. Electronically Signed: Joey Ibrahim DO at 6:14 EDT , Chest x-ray as interpreted by the emergency medicine physician reveals hazy opacities in the bilateral lower lobes consistent with pneumonia Discharge Plan Triage Chief Complaint: Shortness of Breath ED Provider: Kvng Colin Dx/Rx/DC Orders Clinical Impression: Pneumonia, History of anxiety, Tobacco use Instructions: Treating Pneumonia, ED Pneumonia (Adult) Prescriptions: New prednisone 20 mg tablet 40 mg PO DAILY 5 Days Qty: 10 0RF albuterol sulfate [Ventolin HFA] 90 mcg/actuation HFA aerosol inhaler 1 - 2 puff inhalation Q4H PRN PRN (Reason: Wheezing/SOB) Qty: 1 0RF doxycycline hyclate 100 mg capsule 100 mg PO BID 10 Days Qty: 20 0RF No Action ProAir RespiClick 90 mcg/actuation aerosol powdr breath activated 1 inh inhalation Q4H PRN PRN (Reason: wheezing) Primary Care Provider: Ana Lilia Almaraz Referrals: Ana Lilia Almaraz DO [Primary Care Provider] - Activity Restrictions/Additional Instructions: Please return to the ER should you have any further concerns or worsening of symptoms Print Language: Bulgarian Disposition Disposition: Home, Self Care Discharge Date/Time: 04/09/24 07:03
[2024-04-09] MEDS: Doxycycline 100 MG CAPSULE PO (06:59)
[2024-04-09] MEDS: Albuterol Sulfate 8 gm Inhaler (60 puffs) 2 PUFF INHALATION (06:59)
== END 2024-04-09 07:03 | disposition home or self-care (01) ==
PROVIDERS: Emergency Provider Emergency Medicine; PCP Internal Medicine; Visit Provider Emergency Medicine
DX: J18.9 Pneumonia, unspecified organism (principal); F41.9 Anxiety disorder, unspecified; Z79.899 Other long term (current) drug therapy; F17.210 Nicotine dependence, cigarettes, uncomplicated; R51.9 Headache, unspecified
CPT/HCPCS: 71046; 80048; 83735; 85025; 93005; 94640; 96374; 99283; A4216

== ENCOUNTER → 2024-08-23 | Outpatient (CLI) | payer BC, SELFPAY ==
--- NOTE | 2024-08-23 13:34 | BI_ITS ---
MAMMOGRAPHY - BILATERAL SCREENING REASON FOR EXAM: Female, 49 years old. Routine annual screening examination. PERTINENT HISTORY: Aunt with breast cancer. Occasional left lateral breast tenderness. TECHNIQUE: Digital bilateral breast jermaine (3D mammographic acquisition) in the CC and MLO projections. 2-D mediolateral oblique (MLO) and craniocaudad (CC) views of both breasts were obtained. CAD: Full Field Digital Mammography with Computer Added Detection was performed. COMPARISON: Comparison is made with prior study June 11, 2023 and March 24, 2022 FINDINGS: Breast Composition: The breasts are heterogeneously dense, which may obscure small masses. There are no dominant masses or suspicious calcifications. No other significant abnormalities are identified. There has been no significant change since the prior study. BI/SCRN MAMM (CAD)W/JERMAINE BILAT IMPRESSION: Stable bilateral screening mammogram. Yearly follow-up mammogram recommended. (A) ASSESSMENT CATEGORY: BIRADS Category 1: Negative. A letter regarding these results will be sent to the patient by the facility within 30 days. Approximately 10% of breast cancers are not detected by mammography. A normal mammogram should not delay biopsy of a clinically suspicious abnormality. [id number] Electronically Signed: Siva Mcfarlane MD at 14:19 EST ,
== END | disposition home or self-care (01) ==
LOC: OPBI 13:33
PROVIDERS: PCP Internal Medicine; Referring Provider Registered Nurse; Visit Provider Registered Nurse
DX: Z12.31 Encounter for screening mammogram for malignant neoplasm of breast (principal)
CPT/HCPCS: 77063; 77067

== ENCOUNTER → 2024-08-29 | Outpatient (CLI) | payer BC, SELFPAY ==
--- NOTE | 2024-08-29 14:29 | US_ITS ---
EXAM: US PELVIS TRANSABDOMINAL AND TRANSVAGINAL, COMPLETE CLINICAL INDICATION: pelvic pain TECHNIQUE: Transabdominal and transvaginal pelvic ultrasound was performed with grayscale and color Doppler imaging. Transvaginal imaging was used for better evaluation of the endometrium and adnexa. COMPARISON: No relevant prior studies available. FINDINGS: UTERUS/CERVIX: Patient status post hysterectomy. RIGHT OVARY: The right ovary measures 2.0 x 1.1 x 1.1 cm. Blood flow is present in the right ovary. LEFT OVARY: The left ovary measures 1.9 x 1.0 x 1.2 cm. Blood flow is present in the left ovary. FREE FLUID: None. BLADDER: The bladder measures 11.7 x 9.6 x 9.7 cm for volume of 572 mL. US/Pelvic w/ Transvaginal IMPRESSION: Status post hysterectomy. No other abnormalities identified. Electronically Signed: Seamus Cantor MD at 19:51 EST ,
== END | disposition home or self-care (01) ==
LOC: US 14:27
PROVIDERS: PCP Internal Medicine; Referring Provider Nurse Practitioner Family; Visit Provider Nurse Practitioner Family
DX: R10.2 Pelvic and perineal pain (principal)

== ENCOUNTER → 2024-09-25 | Outpatient (CLI) | payer BC, SELFPAY ==
[2024-09-27 19:06] LABS: QNTFERON TB Mitogen Value > 10.00 IU/mL (.); QNTFERON TB Nil Value 0.04 IU/mL (.); QNTFERON TB1+ Ag Value 0.08 IU/mL (.); QNTFERON TB2+ Ag Value 0.08 IU/mL (.); QNTIFERON TB Positive Criteria Negative (Negative)
== END | disposition home or self-care (01) ==
LOC: MTLAB 15:46
PROVIDERS: PCP Internal Medicine; Referring Provider Dermatology Pediatric Dermatology; Visit Provider Dermatology Pediatric Dermatology
DX: L40.0 Psoriasis vulgaris (principal); C44.719 Basal cell carcinoma of skin of left lower limb, including hip; Z79.899 Other long term (current) drug therapy
CPT/HCPCS: 36415; 86480

== ENCOUNTER → 2025-06-21 | Outpatient (CLI) | payer BC, SELFPAY ==
[2025-06-21 17:51] LABS: Hematocrit 40.4 % (37-47); Hemoglobin 13.3 g/dL (12.0-15.0); Immature Granulocytes Count 0.020 X10^3/uL (0.0-0.0); Mean Corp Hgb Conc 32.9 g/dL (32-36); Mean Corpuscular Volume 92.0 fL (81-99); Mean Platelet Vol. 9.7 fl (6.2-12.0); NRBC Flagged by Analyzer 0 % (0-5); Platelet Count 329 K/mm3 (150-450); RBC Distribution Width CV 12.9 % (11.6-14.6); RBC Distribution Width SD 43.7 fl (35.1-43.9); Red Blood Count 4.39 M/mm3 (4.2-5.4); White Blood Count 10.7 K/mm3 (4.4-11.0)
[2025-06-21 18:18] LABS: Cholesterol 202 mg/dL (<=200); Low Density Lipoprotein Calc. 126 mg/dL; Triglycerides 97 mg/dL; Very Low Density Lipoprotein 19 mg/dL (5-40); cholesterol:hdl ratio screen 3.46
[2025-06-21 18:20] LABS: CRP 3.11 mg/L (0.0-3.0)
[2025-06-21 18:28] LABS: AST(SGOT) 24 U/L (<=31); Alanine Aminotransfer ALT/SGPT 21 U/L (<=34); Albumin, Serum 4.6 g/dL (3.5-5.0); Alkaline Phosphatase 73 U/L (35-104); Anion Gap 12 (5-15); BUN 16 mg/dL (4-19); BUN/Creat Ratio 17.4 RATIO (10-20); Calcium,Total 9.4 mg/dL (7.6-11.0); Carbon Dioxide 24.4 mmol/L (21.0-32.0); Chloride 105 mmol/L (98-108); Globulin 2.6 g/dL (2.2-4.2); Glucose 78 mg/dL (70-99); Magnesium 2.2 mg/dL (1.5-2.2); Potassium 3.7 mmol/L (3.3-5.1); Vitamin B12 638 pg/mL (180-914); Vitamin D,25 Hydroxy 39.8 ng/mL (30-100)
[2025-06-25 15:08] LABS: ANTINUCLEAR ANTIBODIES DIRECT Negative (Negative)
== END | disposition home or self-care (01) ==
LOC: MTLAB 16:08
PROVIDERS: PCP Internal Medicine; Referring Provider Internal Medicine; Visit Provider Internal Medicine
DX: Z13.220 Encounter for screening for lipoid disorders (principal); M25.50 Pain in unspecified joint; R53.82 Chronic fatigue, unspecified
CPT/HCPCS: 36415; 80053; 80061; 82306; 82607; 83036; 83735; 84443; 85025; 85652; 86038; 86140; 86200; 86225; 86431